=== PATIENT | female | born 1980 | race Caucasian/White ===

== ENCOUNTER 2020-05-01 17:12 | Outpatient (CLI) | payer OTHER, SELFPAY ==
--- NOTE | ~2020-05-01 | XR_ITS ---
EXAMINATION: XR sacrum coccyx min 2V INDICATION: Sacrococcygeal disorders, impacted incident, tailbone pain TECHNIQUE: Two views of the sacrum and coccyx are obtained on four radiographs. COMPARISON: 12/24/2016 FINDINGS: There are changes of anterior and posterior fusion procedures at L5-S1. No fracture is iden tified. The soft tissues are unremarkable. IMPRESSION: 1. No acute osseous abnormality. Reviewed, dictated and finalized at location A.
== END 2020-05-01 17:13 | disposition home or self-care (01) ==
PROVIDERS: PCP Family Medicine; Visit Provider Family Medicine
DX: M53.3 Sacrococcygeal disorders, not elsewhere classified (principal)
CPT/HCPCS: 72220

== ENCOUNTER 2020-10-09 15:23 | Outpatient (CLI) | payer OTHER, SELFPAY ==
--- NOTE | ~2020-10-09 | MR_ITS ---
EXAMINATION: MR knee LT wo con DATE: 10/09/2020 16:06 INDICATION: Left knee pain TECHNIQUE: Magnetic resonance imaging (MRI) of the left knee was performed without intravenous contra st. Sequences included coronal PD-weighted FSE, coronal PD-weighted FS FSE, sagittal T2-weighted FSE , sagittal PD-weighted FS FSE and axial PD weighted fat saturated FSE. COMPARISON: Left knee radiographs dated 11/25/2019 FINDINGS: Medial compartment: There is extrusion of the medial meniscal body with complex tear of the posterior horn. Partial-thick ness cartilage loss and ulceration throughout the lateral tibial plateau with marginal osteophytes an d mild subarticular edema along the posterior rim and at the anterior to central weightbearing medial femoral condyle in places appearing for near full-thickness with tiny central osteophyte at the junc tion of the anterior to central weightbearing medial femoral condyle. Additional moderate size margin al osteophytes about the weightbearing medial femoral condyle. Lateral compartment: Longitudinal horizontal tear of the lateral meniscus which extends to the inferior articular surface of the body and posterior horn and crossing the free edge to involve the cephalad articular surface a t the anterior horn. Partial-thickness cartilage loss and pulsed/near full-thickness fissuring at the lateral tibial plateau and throughout the weightbearing lateral femoral condyle. 8 x 8 mm flat 1 mm thick central osteophyte at the junction of the anterior to central weightbearing lateral femoral con dyle. Larger 28 x 6 mm by 2-3 mm thick central osteophyte at the posterior weightbearing lateral femo ral condyle. Moderate-sized marginal osteophytes along the weightbearing lateral femoral condyle. Patellofemoral compartment: Deep chondral fissuring without degenerative subchondral changes at the patellar apical ridge and lat eral facet. Moderate-sized marginal ossified along the medial facet. Chondral ulceration in places ap pearing full/near full-thickness at the lateral trochlea with tiny focus of subarticular edema. A sev ere partial thickness cartilage loss with deep fissuring at the trochlear groove and medial trochlea. Moderate-sized marginal osteophytes along the cephalad aspect of the lateral trochlea and medial shantel e of the medial trochlea. Ligaments and tendons: Anterior cruciate ligament appears thickened with increased intrasubstance signal and following a sha llower course than Blumensaat line consistent with ligament tear. The posterior cruciate ligament is normal. The medial collateral ligament and fibular collateral ligament complex are normal. Mild dista l quadriceps tendinopathy without discrete tear. Patellar tendon is normal. The visualized medial and lateral hamstring tendons as well as the iliotibial band are normal. Fluid: Physiologic amount of fluid in the joint space. No loose osteochondral bodies identified. 18 x 11 x 9 mm multiloculated para labral cyst along the periphery of the anterior horn of the lateral meniscus. Small Baez's cyst. Osseous/other: No fracture or abnormal marrow replacing process. IMPRESSION: 1. Medial and lateral meniscal tears. 2. Moderate osteoarthritis with extensive moderate and high-grade chondromalacia throughout all 3 com partments. 3. Anterior cruciate ligament tear. Reviewed, dictated and finalized at location A. IFIED TECHNICIAN SPECIALIST IMPRESSION: 1. Medial and lateral meniscal tears. 2. Moderate osteoarthritis with extensive moderate and high-grade chondromalaci a throughout all 3 compartments. 3. Anterior cruciate ligament tear.
== END 2020-10-09 15:24 | disposition home or self-care (01) ==
LOC: ANHIMG 15:28
PROVIDERS: PCP Family Medicine; Visit Provider Orthopaedic Surgery
DX: S83.242A Other tear of medial meniscus, current injury, left knee, initial encounter (principal); S83.282A Other tear of lateral meniscus, current injury, left knee, initial encounter; S83.512A Sprain of anterior cruciate ligament of left knee, initial encounter; M17.12 Unilateral primary osteoarthritis, left knee
CPT/HCPCS: 73721

== ENCOUNTER 2021-10-19 10:02 | Outpatient (CLI) | payer OTHER, SELFPAY ==
--- NOTE | 2021-10-19 11:00 | NEURO_ITS ---
Impression: # Complains of numbness of hands. # No Carpal Tunnel Syndrome. # Left ulnar neuropathy across the elbow. # Normal needle/EMG exam. Nerve Conduction Studies Anti Sensory Summary Table Stim Site NR Peak (ms) P-T Amp (?V) Site1 Site2 Delta-P (ms) Dist (cm) Sheldon (m/s) Left Median Anti Sensory (2-3nd Digit) Wrist 3.1 64.2 Wrist 2-3nd Digit 3.1 14.0 45 Wrist 3.1 72.6 Wrist 2-3nd Digit 3.1 14.0 45 Right Median Anti Sensory (2-3nd Digit) Wrist 3.2 58.2 Wrist 2-3nd Digit 3.2 14.0 44 Wrist 3.2 20.6 Wrist 2-3nd Digit 3.2 14.0 44 Left Radial Anti Sensory (Base 1st Digit) Wrist 2.2 26.4 Wrist Base 1st Digit 2.2 0.0 Right Radial Anti Sensory (Base 1st Digit) Wrist 2.5 30.5 Wrist Base 1st Digit 2.5 0.0 Left Ulnar Anti Sensory (5th Digit) Wrist 3.6 18.1 Wrist 5th Digit 3.6 14.0 39 Right Ulnar Anti Sensory (5th Digit) Wrist 2.7 51.8 Wrist 5th Digit 2.7 14.0 52 Motor Summary Table Stim Site NR Onset (ms) O-P Amp (mV) Site1 Site2 Delta-0 (ms) Dist (cm) Sheldon (m/s) Left Median Motor (Abd Poll Brev) Wrist 3.3 7.5 Elbow Wrist 5.1 32.0 63 Elbow 8.4 6.9 Right Median Motor (Abd Poll Brev) Wrist 3.4 2.6 Elbow Wrist 5.3 31.0 58 Elbow 8.7 2.2 Left Ulnar Motor (Abd Dig Minimi) Wrist 3.0 7.5 A Elbow Wrist 6.1 31.0 51 A Elbow 9.1 5.9 B Elbow Wrist 4.5 26.0 58 B Elbow 7.5 6.2 Right Ulnar Motor (Abd Dig Minimi) Wrist 2.5 9.1 A Elbow Wrist 5.3 31.0 58 A Elbow 7.8 7.4 F Wave Studies NR F-Lat (ms) L-R F-Lat (ms) Left Median (Mrkrs) (Abd Poll Brev) 28.52 0.39 Right Median (Mrkrs) (Abd Poll Brev) 28.91 0.39 Left Ulnar (Mrkrs) (Abd Dig Min) 30.00 1.17 Right Ulnar (Mrkrs) (Abd Dig Min) 28.83 1.17 EMG Side Muscle Nerve Root Ins Act Fibs Amp Dur Recrt Comment Right 1stDorInt Ulnar C8-T1 Nml Nml Nml Nml Nml Right Ext Indicis Radial (Post Int) C7-8 Nml Nml Nml Nml Nml Right Ext Digitorum Radial (Post Int) C7-8 Nml Nml Nml Nml Nml Right BrachioRad Radial C5-6 Nml Nml Nml Nml Nml Right PronatorTeres Median C6-7 Nml Nml Nml Nml Nml Right Abd Poll Brev Median C8-T1 Nml Nml Nml Nml Nml Left 1stDorInt Ulnar C8-T1 Nml Nml Nml Nml Nml Left Ext Indicis Radial (Post Int) C7-8 Nml Nml Nml Nml Nml Left Ext Digitorum Radial (Post Int) C7-8 Nml Nml Nml Nml Nml Left BrachioRad Radial C5-6 Nml Nml Nml Nml Nml Left PronatorTeres Median C6-7 Nml Nml Nml Nml Nml Left Abd Poll Brev Median C8-T1 Nml Nml Nml Nml Nml MTDD
== END 2021-10-19 10:03 | disposition home or self-care (01) ==
LOC: ANHNEURO 10:05
PROVIDERS: PCP Family Medicine; Visit Provider Orthopaedic Surgery Hand Surgery
DX: G56.22 Lesion of ulnar nerve, left upper limb (principal)
CPT/HCPCS: 95886; 95911

== ENCOUNTER 2022-01-10 15:13 | Outpatient (CLI) | payer OTHER, SELFPAY ==
--- NOTE | ~2022-01-10 | US_ITS ---
EXAMINATION: US venous doppler [facility] DATE: 01/10/2022 16:13 INDICATION: Left ankle swelling TECHNIQUE: Keith scale images without and with compression and Doppler images of the left lower extrem ity veins were obtained. COMPARISON: 09/13/2015 FINDINGS: The left common femoral vein, profunda femoral vein, femoral vein, popliteal vein, peroneal trunk, posterior tibial veins, and greater saphenous vein are patent. IMPRESSION: 1. Patent left lower extremity veins. No evidence of deep venous thrombosis. Reviewed, dictated and finalized at location B. CALL PHARMACY TECHNICIAN
--- NOTE | ~2022-01-10 | US_ITS ---
EXAMINATION: US pelvic complete w TV DATE: 01/10/2022 16:13 INDICATION: Amenorrhea TECHNIQUE: Multiple transabdominal and endovaginal sonographic images of the pelvis were obtained. COMPARISON: None. FINDINGS: The uterus measures 7.6 x 4.3 x 3.2 cm. The endometrial complex measures 5 mm. The right ov mona measures 1.8 x 1.7 x 1.4 cm. The left ovary measures 2.7 x 1.9 x 2.0 cm. Nabothian cysts are note d in the cervix. There is normal vascular flow in the ovaries. There is no free fluid in the pelvis. IMPRESSION: 1. No sonographic correlate for the patient's symptoms. Reviewed, dictated and finalized at location B. ED BOX [facility]WER
== END 2022-01-10 15:14 | disposition home or self-care (01) ==
LOC: ANHIMG 15:18
PROVIDERS: PCP Family Medicine; Visit Provider Family Medicine
DX: N91.2 Amenorrhea, unspecified (principal); M79.605 Pain in left leg
CPT/HCPCS: 76830; 76856; 93971

== ENCOUNTER 2022-02-17 17:17 | Outpatient (CLI) | payer OTHER, SELFPAY ==
--- NOTE | ~2022-02-17 | MR_ITS ---
EXAMINATION: MR lumbar spine wo con DATE: 02/17/2022 18:07 INDICATION: Other spondylosis, lumbar region. TECHNIQUE: Magnetic resonance imaging (MRI) of the lumbar spine was performed without intravenous con trast. Sequences included sagittal T2-weighted FSE, sagittal T2-weighted FS FSE, sagittal STIR FSE, s agittal T1-weighted FSE, and axial T2-weighted FSE. COMPARISON: Lumbar spine MRI 05/30/2015 FINDINGS: There is 4 degrees dextrocurvature of thoracolumbar spine. There is 5 mm anterolisthesis of L5 on S1. There are changes of posterior fusion procedure at L5-S1 with pedicle screws. There are ch anges of anterior fusion procedure at L5-S1. There is mildly decreased disc height at L4-L5. There is mild central canal stenosis at L5-S1 with posterior decompression. IMPRESSION: 1. Motion artifact severely decreases sensitivity. 2. Anterior and posterior fusion procedures at L5-S1. 3. Mild lumbar spondylosis. Reviewed, dictated and finalized at location A.
--- NOTE | ~2022-02-17 | XR_ITS ---
XR lumbar spine 2-3V DATE: 02/17/2022 18:17 INDICATION: Back pain. Status post spinal fusion in 2009. Spondylosis. TECHNIQUE: AP, lateral, coned lateral lumbosacral views COMPARISON: December 24, 2016 lumbar spine FINDINGS: Status post posterior and interbody spinal fusion at L5-S1. Stable anterolisthesis at L5-S1 since December 24, 2016. No fracture or bone destruction is evident. The lumbar pedicles are intact. Mild loss of interspace height, mild degenerative spurring at L1-2. Moderate loss of L4-5 interspace height. The sacroiliac joints are intact. IMPRESSION: Status post posterior and interbody surgical fusion at L5-S1 Prominent loss of interspace height at L4-5 since December 24, 2016 Mild degenerative disc disease at L1 to Reviewed, dictated and finalized at location A.
== END 2022-02-17 17:18 | disposition home or self-care (01) ==
LOC: ANHIMG 17:18
PROVIDERS: PCP Family Medicine; Visit Provider Family Medicine
DX: M47.896 Other spondylosis, lumbar region (principal); Z98.1 Arthrodesis status; M51.36 Other intervertebral disc degeneration, lumbar region
CPT/HCPCS: 72100; 72148

== ENCOUNTER 2022-06-01 11:26 | Outpatient (CLI) | payer OTHER, SELFPAY ==
[2022-06-01 11:44] LABS: Basophils Absolute Auto 0.1 K/mm3 (0.0-0.1); Basophils Percent Auto 0.8 % (0.2-1.2); Eosinophils Absolute Auto 0.6 K/mm3 (0-0.3); Eosinophils Percent Auto 6.9 % (0-4.4); Hematocrit 34.8 % (37.0-47.0); Hemoglobin 9.4 g/dL (12.0-15.0); Immature Granulocyte Absolute 0.02 K/mm3 (0.00-0.031); Immature Granulocyte Percent A 0.2 % (0-0.5); Lymphocytes Absolute Auto 2.38 K/mm3 (0.9-3.2); Lymphocytes Percent Auto 27.8 % (18.3-44.2); Mean Corpuscular Volume 66.7 fl (80-100); Mean Platelet Volume 8.9 fl (7.4-10.4); Monocytes Absolute Auto 0.9 K/mm3 (0.1-0.6); Monocytes Percent Auto 10.3 % (2.6-8.5); Neutrophils Absolute Auto 4.6 K/mm3 (1.3-6.7); Platelet Count Result 628 k/mm3 (150-375); Red Blood Count 5.22 M/mm3 (4.2-5.4); Red Cell Distribution Width 21.2 % (11.5-14.5); White Blood Count 8.6 K/mm3 (4.5-10.0)
[2022-06-01 11:51] LABS: Anisocytosis 1+ (NORMAL); Hypochromasia 1+ (NORMAL); Ovalocytes 1+ (NORMAL); Platelet Estimate Increased (Adequate); Poikilocytosis 1+ (NORMAL)
[2022-06-01 12:19] LABS: Alanine Aminotransferase 21 U/L (6-35); Alkaline Phosphatase 91 U/L (38-126); Anion Gap 11 mmol/L (8-16); Aspartate Amino Transferase 19 U/L (14-36); Bilirubin,Total 0.3 mg/dL (0.2-1.3); Blood Urea Nitrogen 15 mg/dL (7-17); Carbon Dioxide 26 mmol/L (22-30); Chloride 103 mmol/L (98-107); Estimated Glomerular Filt Rate > 60; Glucose 107 mg/dL (65-110); Potassium 3.6 mmol/L (3.4-5.0); Sodium 140 mmol/L (137-145)
[2022-06-01 13:26] LABS: Folic Acid 11.4 ng/mL (2.76->20)
[2022-06-01 15:03] LABS: Iron 21 ug/dL (37-170)
[2022-06-01 15:13] LABS: Percent Iron Saturation 5 % (20-50)
[2022-06-01 15:39] LABS: Ferritin 6.92 ng/mL (6.24-137)
== END 2022-06-01 11:27 | disposition home or self-care (01) ==
LOC: ANHLAB 11:27
PROVIDERS: PCP Family Medicine; Visit Provider Internal Medicine Hematology & Oncology
DX: D64.9 Anemia, unspecified (principal)
CPT/HCPCS: 36415; 80053; 82607; 82728; 82746; 83540; 83550; 85025

== ENCOUNTER 2022-06-29 00:54 | Day surgery (SDC) | payer OTHER, SELFPAY ==
--- NOTE | 2022-06-24 14:16 | PM.IMHP ---
H&P: HPI History of Present Illness Date/Time: 06/24/22 14:16 Chief Complaint: The patient is a 41-year-old female who presents with right knee pain, the pain is localized medially and laterally. Interferes with her daily activities quite significant nature at times. She has pain with twisting or turning squatting kneeling going up and down stairs. . This has been present for several months now. The patient despite conservative measures has symptoms of continue with mechanical symptoms aching pain and swelling in the knee. An MRI scan was performed that shows tears of the medial and lateral menisci. There are tricompartmental degenerative changes with marginal osteophytes and moderate to large knee joint effusion and popliteal fossa cyst. Motion artifact limits the evaluation of the MRI scan. Stabilizing ligaments of the knee are intact. At this point the patient is where the above findings she knows she has pre-existing osteoarthritis and may not get full relief of her knee pain from knee arthroscopy however she would like to proceed. Review of Systems Review of Systems: Ten point review of systems otherwise unremarkable. Meds Home Medications and Allergies Allergies Allergy/AdvReac Type Severity Reaction Status Date / Time No Known Allergies Allergy Verified 06/24/22 14:00 Exam Narrative: On exam the patient is noted to be well-developed well-nourished female in no acute distress alert oriented x3. Normal mood and affect. the patient is 5 ft 11 in tall 250 lb the BMI of 34.9. Hearing and vision intact. Respiratory is good no distress. Pulse regular rate rhythm. Abdomen benign. Extremities showed the patient's right knee to be painful with manipulation range of motion. She has tenderness on medial and lateral joint lines pain with extremes of motion with subpatellar crepitation positive Rudolph exam negative Tab knee joint is otherwise stable strength is 5 5. moderate knee joint effusion is noted. Hips move well with negative Stinchfield negative Ciara. Neurovascularly she is intact skin is intact central nervous system within normal limits. Assessment and Plan Assessment and plan (1) Tear of medial meniscus of right knee, current: Code(s): S83.241A - Other tear of medial meniscus, current injury, right knee, initial encounter Status: Acute (2) Tear of lateral meniscus of right knee: Code(s): S83.281A - Other tear of lateral meniscus, current injury, right knee, initial encounter Status: Acute Plan The patient has right knee pain due to medial and lateral meniscal tears of the right knee. The patient has discussed risks benefits limitations and alternatives to surgery in great detail Dr. Yip the patient is now ready to proceed with a right knee arthroscopy partial medial and partial lateral meniscectomies proceed as indicated. Ms. Benton is scheduled to go surgery 06/29/2022 at [facility] with Dr. Yip. The patient voiced understanding and agrees with the above plan.
[2022-06-28 11:48] VITALS: BMI 34.8
--- NOTE | 2022-06-28 11:54 | WPDANESEPPF ---
Anes - Initial Pre Proc Eval Procedure: Operation Date: 06/29/22 07:30 Proposed Procedures p Right Knee Arthroscopy, Partial Medial and Lateral Meniscectomy, Proceed as Indicated - Geovani Yip MD Date/Time: 06/28/22 11:54 Surgeon: Geovani Yip MD Pre Op Diagnosis: Medial & Lateral Meniscus Tear Rt Knee Patient Data Age: 41 Gender: F Height: Weight: Allergies Allergy/AdvReac Type Severity Reaction Status Date / Time No Known Allergies Allergy Verified 06/29/22 06:31 Home Medications Medication Instructions Recorded Confirmed Type albuterol sulfate 90 mcg/actuation 90 mcg inhalation Q4H PRN Cough 06/24/22 06/29/22 History aerosol inhaler celecoxib 200 mg capsule 200 mg PO DAILY 06/24/22 06/29/22 History duloxetine 60 mg capsule,delayed 60 mg PO BID 06/24/22 06/29/22 History release ergocalciferol (vitamin D2) 1,250 50,000 unit PO DAILY 06/24/22 06/29/22 History mcg (50,000 unit) capsule ferrous sulfate 325 mg (65 mg 65 mg PO DAILY 06/24/22 06/29/22 History iron) tablet (FeroSul) fluoxetine 40 mg capsule 40 mg PO DAILY 06/24/22 06/29/22 History fluticasone propionate 50 2 spray intranasal DAILY PRN 06/24/22 06/29/22 History mcg/actuation nasal Allergic Symptoms spray,suspension gabapentin 300 mg capsule 300 mg PO BID 06/24/22 06/29/22 History meloxicam 15 mg tablet 15 mg PO DAILY 06/24/22 06/29/22 History omeprazole 40 mg capsule,delayed 40 mg PO DAILY 06/24/22 06/29/22 History release spironolactone 100 mg tablet 100 mg PO BID 06/24/22 06/29/22 History tizanidine 4 mg tablet 4 mg PO Q8-10H PRN Muscle Spasm 06/24/22 06/29/22 History trazodone 50 mg tablet 50 mg PO QHS PRN Insomnia 06/24/22 06/29/22 History Patient hx anesthesia problems: none Family hx anesthesia problems: none Results Review: All pre-operative results and documents have been reviewed as part of the pre-operative evaluation. [facility] Past Medical History Medical History (Updated 06/29/22 @ 07:01 by Babatunde Washington MD) Anxiety Depression Osteoarthritis Tear of lateral meniscus of right knee Social History Social History Smoking packs per day: 0.5 Smoking cigarettes per day: 10.0 Years smoked: 25 Smoking pack-years: 12.50 Smoking status: Former smoker Tobacco type: cigarettes Smoking end date: 11/06/12 Alcohol intake: never Substance use: current Substance use type: marijuana Living arrangements: with family Spiritual care concerns: No Anes - Eval Final PreProcedure Day of Procedure 06/28/22 11:54 Patient weight: obese Heart: regular rate and rhythm Lungs: clear to auscultation and normal air movement Airway: Mallampati scale class II Neurological: alert and oriented Last oral intake: >/= 8 hours ASA classification: II Emergent: no Anesthetic plan: proceed Anesthesia type and monitoring: general LMA Results Review: All pre-operative results and documents have been reviewed as part of the pre-operative evaluation. Informed Consent: The patient's anesthetic plan and its attendant risks and benefits were discussed with the patient/family/POA. Questions were solicited and answers provided to the satisfaction of the patient/family/POA.
--- NOTE | 2022-06-28 12:01 | PC.NURSE ---
Report to the Outpatient Waiting Room, entrance under the green pavilion located off [facility], at time 0600 on date 06/29/22. OR Time: 0730. - You and your visitor will be asked to self-screen and do not enter if you have any COVID symptoms. - Only one visitor and NO children visitors are allowed at this time. - The patient visitor is requested to leave or wait in car when not with patient due to restrictions. - A mask is required within the hospital. Patients may have clear liquids (water, carbonated beverages, clear teas, apple juice) until 3 hours prior to surgery with a maximum of 20 ounces. - No food from midnight until time of surgery Take the following medications with a SIP of water the morning of surgery: INHALER (IF NEEDED), DULOXETINE, FLUOXETINE, GABAPENTIN Medications to discontinue per physician: VITAMINS/SUPPLEMENTS Date to take last dose: NO MORE UNTIL AFTER SURGERY STOP CELECOXIB/MELOXICAM PER DR. JACOBSON Please no make-up, nail sinhala, hairspray, perfume, deodorant, or body powder the day of surgery. No jewelry (including any body piercings) or valuables the day of surgery, leave them at home. Please take a shower or bath the night before, or the morning of, surgery with an antibacterial soap. Wear comfortable, loose fitting clothing. - Jewelry must be removed prior to entering the operating room. Rings and piercings that are not removed may be cut off. - The hospital will not accept responsibility for valuables. - Please leave all valuables, including medications, at home the day of surgery. If you are going home after surgery, a licensed crew car driver must drive you home. - NO public transportation without another adult. - We recommend that an adult stay with you for 24 hours following discharge. - We also recommend that you do not drive, make important decision, drink alcoholic beverages, or take any drugs that were not prescribed by your health care provider for at least 24 hours after your discharge time. Follow any additional instructions given to you from your surgeon. If you or anyone in your household have experienced Covid symptoms in the past week, please notify your surgeon or the nurse liaison at the phone number below for possible testing. Telephone instructions given to PT - RAMBO COLEMAN and asked if any additional questions and then verbalized understanding. Patient advised to call surgeon office or pre surgery nurse liaison [phone] if any additional questions.
[2022-06-29] VITALS (11 sets, daily range): BP systolic 118–166; BP diastolic 72–98; PULSE 88–99; RESP 13–20; TEMP 35.9–36.8; O2SAT 95–99
[2022-06-29] MEDS: ACETAMINOPHEN 500 MG TABLET 1000 MG PO (06:33)
[2022-06-29] MEDS: LACTATED RINGERS 1,000 ML 30 ML IV CONT ×2 (07:01→08:43)
[2022-06-29] MEDS: KETOROLAC 15 MG/ML VIAL (*BKC) IV PUSH (07:01)
--- NOTE | 2022-06-29 07:10 | WPDHPUPDATE1 ---
History and Physical Update Update Date/Time: 06/29/22 07:11 History and Physical has been reviewed, including an updated exam of the patient. There are NO changes in the patient's condition. Risks, benefits, and alternatives have been discussed and questions answered. Patient agrees to proceed with procedure.
[2022-06-29] MEDS: ceFAZolin 2 GM/D5W 50 ML 2 GM/50 ML BAG IVPB (07:25)
[2022-06-29] MEDS: LIDO 1%/EPINEPHRINE 1:100,000 50 ML VIAL 20 ML INFILTRATE (07:49)
--- NOTE | 2022-06-29 08:10 | W.PM.PROC2 ---
Procedure Note - Detailed Date of Procedure 06/29/22 Pre-op Diagnosis Medial & Lateral Meniscus Tear Rt Knee Post-op Diagnosis Same Procedure Performed [Left] knee arthroscopy with partial meniscetomy Surgeon Geovani Yip MD Anesthesia General Description of Procedure Patient brought to the operating room and anesthetic was administered. The knee was steriley prepped and drapped in the usual manner. Standard portals were used. Superior medial portal was used for the outflow cannula, inferior lateral portal was used for the scope, inferior medial portal was used for the instruments. Arthroscopy was performed, the patellar femoral joint degenerative changes. The medial compartment showed a small tear. The lateral compartment showed s complex tear of the posterior half of the meniscus. The ACL was intact. Using baskets and thaddeus the meniscal tear was trimmed back to a stable base so the nothing further could be pulled into the joint. Any loose or delaminated fragments were gently trimmed to a stable base. At this point the instruments were withdrawn, sutures placed and patient left the operating room in satisfactory condition. The medial meniscus was minimally debrided. Estimated Blood Loss 20 Drains No Packing No Pathology None sent Complications No immediate complications Condition Stable Disposition PACU
[2022-06-29] MEDS: fentaNYL CITRATE INJ (*CRX) 100 MCG/2 ML VIAL 25 MCG IV PUSH ×2 (08:59→09:15)
[2022-06-29] MEDS: oxyCODONE HCL (*CRX) 5 MG TAB IR PO (09:46)
== END 2022-06-29 10:36 | disposition home or self-care (01) ==
PROVIDERS: PCP Family Medicine; Visit Provider Orthopaedic Surgery
PROC: (CPT 29870; principal; 2022-06-29 07:30)
DX: S83.241A Other tear of medial meniscus, current injury, right knee, initial encounter (principal); S83.281A Other tear of lateral meniscus, current injury, right knee, initial encounter; M25.561 Pain in right knee
CPT/HCPCS: 29880; A9270; J0690; J1100; J1170; J1885; J2250; J2370; J2405; J2704; J3010; J7120

== ENCOUNTER 2022-08-09 09:29 | Outpatient (CLI) | payer OTHER, SELFPAY ==
--- NOTE | ~2022-08-09 | XR_ITS ---
EXAM: XR lumbar spine 2-3V DATE: 08/09/2022 09:55 HISTORY: OTHER SPONDYIOSIS NON INJ PAIN . COMPARISON: 02/17/2022. FINDINGS: Uncomplicated appearing posterior fusion at L5-S1. Interbody device in good position. 5 non rib-bearing lumbar-type vertebral bodies. Pedicles intact. 12 mm anterolisthesis at L5-S1. Vertebral body heights preserved. Disc spaces maintained. L4-5 facet sclerosis and hypertrophy. Likely lower rosanna mbar facet arthropathy and bone graft material. Nondisplaced transverse fracture of the right L1 lugo sverse process. IMPRESSION: Acute appearing right L1 transverse process fracture, correlate with history of trauma. G rade 2 anterolisthesis at L5-S1, stable. Posterior fusion at L5-S1, no hardware related complication. Reviewed, dictated and finalized at location K. IMPRESSION: Acute appearing right L1 transverse process fracture, correlate wit h history of trauma. Grade 2 anterolisthesis at L5-S1, stable. Posterior fusion at L5-S1, no hardware related complication.
--- NOTE | ~2022-08-09 | CT_ITS ---
EXAMINATION: CT lumbar spine wo con DATE: 08/09/2022 09:49 INDICATION: Other lumbar spondylosis. Low back pain radiating down both legs. TECHNIQUE: Computed tomography (CT) of the lumbar spine was performed without intravenous contrast. A utomated exposure control and iterative reconstruction technique were employed. The dose-length produ ct was 1317.58 mGy-cm. COMPARISON: CT lumbar spine 07/07/2012 FINDINGS: There is 4 degrees levocurvature of lumbar spine. There is 7 mm anterolisthesis of L5 on S1 . There are changes of anterior and posterior fusion procedures at L5-S1 with interbody devices, heal ed interbody bone graft, and pedicle screws. Vertebral body heights are normal. Intervertebral disc h eights are normal. There is a laminectomy at L5. The following disc levels are specifically discussed : L1-L2: The disc does not extend beyond the endplate margin. There is moderate right and mild left fac et joint osteoarthritis. There is no neural foraminal stenosis. There is no central canal stenosis. L2-L3: The disc does not extend beyond the endplate margin. There is mild bilateral facet joint osteo arthritis. There is no neural foraminal stenosis. There is no central canal stenosis. L3-L4: The disc is mildly bulging. There is severe right and mild left facet joint osteoarthritis. Th ere is mild bilateral neural foraminal stenosis. There is no central canal stenosis. L4-L5: The disc is bulging. There is mild bilateral facet joint hypertrophy. There is mild bilateral neural foraminal stenosis. There is mild central canal stenosis. L5-S1: There is mild bilateral facet joint hypertrophy. There is mild bilateral neural foraminal sten osis. There is no central canal stenosis. IMPRESSION: 1. Anterior and posterior fusion procedures at L5-S1. 2. Mild lumbar spondylosis. Reviewed, dictated and finalized at location B.
== END 2022-08-09 09:30 | disposition home or self-care (01) ==
PROVIDERS: PCP Family Medicine; Visit Provider Family Medicine
DX: M47.896 Other spondylosis, lumbar region (principal); Z98.1 Arthrodesis status
CPT/HCPCS: 72100; 72131

== ENCOUNTER 2023-06-26 07:53 | Outpatient (CLI) | payer OTHER, SELFPAY ==
--- NOTE | ~2023-06-26 | CT_ITS ---
EXAMINATION: CT abdomen pelvis w con INDICATION: Inguinal lymphadenopathy TECHNIQUE: Computed tomographic images of the abdomen and pelvis were obtained after the administrati on of 100 cc of Omnipaque 350 intravenous contrast. The dose-length product (DLP) was 1378.66 mGy-cm. Automated exposure control and iterative reconstruction technique were employed. COMPARISON: None available FINDINGS: The heart size is normal. Debris is seen in a few right lower lobe bronchi. The liver, sple en, pancreas, and adrenal glands are normal. There are stones in the nondistended gallbladder. The ki dneys are unremarkable. Left inguinal and right retroperitoneal lymph nodes are upper limits of lisa l in size. No free intraperitoneal gas or evidence of bowel obstruction. The appendix is normal. Ther e are changes of anterior and posterior fusion at L5-S1. IMPRESSION: 1. Left inguinal and right retroperitoneal lymph nodes are upper limits of normal in size. Reviewed, dictated and finalized at location A. IMPRESSION: 1. Left inguinal and right retroperitoneal lymph nodes are upper limits of norm al in size.
== END 2023-06-26 07:54 | disposition home or self-care (01) ==
PROVIDERS: PCP Family Medicine; Visit Provider Family Medicine
DX: R59.0 Localized enlarged lymph nodes (principal)
CPT/HCPCS: 74177; Q9967

== ENCOUNTER 2023-08-02 10:50 | Outpatient (CLI) | payer OTHER, SELFPAY ==
--- NOTE | ~2023-08-02 | XR_ITS ---
EXAMINATION: XR hand LT min 3V, XR wrist LT min 3V DATE: 08/02/2023 11:15 INDICATION: Left hand and wrist pain TECHNIQUE: 1. Posteroanterior, ulnar deviation, oblique, and lateral views of the left wrist were obtained. 2. Dorsal palmar, oblique and lateral views of the left hand were obtained. COMPARISON: 11/25/2019 FINDINGS: Alignment of the left hand and wrist is normal. No fracture identified. No significant change in mil d polyarticular osteoarthritis at the left distal radioulnar, radioscaphoid, triscaphe, first carpome tacarpal, first-third metacarpophalangeal and each of the interphalangeal joints with distal predomin ance. No erosions to suggest inflammatory arthritis. No focal soft tissue swelling. IMPRESSION: 1. 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 Reviewed, dictated and finalized at location A. IMPRESSION: 1. 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
== END 2023-08-02 10:51 | disposition home or self-care (01) ==
LOC: ANHIMG 10:59
PROVIDERS: PCP Family Medicine; Visit Provider Family Medicine
DX: M19.042 Primary osteoarthritis, left hand (principal); M19.032 Primary osteoarthritis, left wrist
CPT/HCPCS: 73110; 73130

== ENCOUNTER 2024-04-04 16:51 | Outpatient (CLI) | payer OTHER, SELFPAY ==
--- NOTE | ~2024-04-04 | XR_ITS ---
EXAM: XR_CERV2-3V_CR DATE: 04/04/2024 17:13 HISTORY: NECK PAIN . COMPARISON: None available. FINDINGS: Craniocervical association and atlantoaxial joint are aligned. No prevertebral soft tissue swelling. Moderate degenerative change at the atlantodental interval. Reversed cervical lordosis jordan tered at C6-7. 2 mm anterolisthesis at C5-6. Mild vertebral body height loss at C5. Moderate vertebra l body height loss at C6. Mild disc space narrowing and moderate marginal osteophytosis at C5-6 and C 6/7. Multilevel facet sclerosis and hypertrophy IMPRESSION: Minimal grade 1 anterolisthesis at C5-6. Mild vertebral body height loss at C5, moderate pericardial body height loss at C6, changes are presu mably chronic and degenerative in nature unless accompanied by history of trauma and acute pain/tende rness. Moderate degenerative disc disease at C5-6 and C6-7. Moderate multilevel cervical facet arthropathy. Reviewed, dictated and finalized at location K. IMPRESSION: Minimal grade 1 anterolisthesis at C5-6. Mild vertebral body height loss at C5, moderate pericardial body height loss at C6, changes are presumably chronic and degenerative in nature unless accompani ed by history of trauma and acute pain/tenderness. Moderate degenerative disc disease at C5-6 and C6-7. Moderate multilevel cervical facet arthropathy.
--- NOTE | ~2024-04-04 | XR_ITS ---
EXAM: XR thoracic spine 2V DATE: 04/04/2024 17:13 HISTORY: THORACIC BACK PAIN . COMPARISON: None available. FINDINGS: Mild scoliosis. Vertebral body alignment intact. Vertebral body heights preserved. Mild mul tilevel disc space narrowing and marginal osteophytosis. Mild multilevel facet sclerosis. No traumati c malalignment or fracture. Visualized lung parenchyma is clear. IMPRESSION: Mild thoracic scoliosis. Mild multilevel degenerative disc disease and facet arthropathy. Reviewed, dictated and finalized at location K.
== END 2024-04-04 16:52 | disposition home or self-care (01) ==
LOC: ANHIMG 16:52
PROVIDERS: PCP Family Medicine; Visit Provider Family Medicine
DX: M41.84 Other forms of scoliosis, thoracic region (principal); M51.34 Other intervertebral disc degeneration, thoracic region; M43.12 Spondylolisthesis, cervical region; R29.890 Loss of height; M50.322 Other cervical disc degeneration at C5-C6 level; M12.88 Other specific arthropathies, not elsewhere classified, other specified site
CPT/HCPCS: 72040; 72070

== ENCOUNTER 2024-04-19 16:23 | Outpatient (CLI) | payer OTHER, SELFPAY ==
--- NOTE | ~2024-04-19 | US_ITS ---
EXAMINATION: US pelvic complete w TV DATE: 04/19/2024 17:11 INDICATION: Postmenopausal bleeding. TECHNIQUE: Multiple transabdominal and transvaginal sonographic images of the pelvis were obtained. COMPARISON: Ultrasound pelvis 01/10/2022 FINDINGS: TRANSABDOMINAL ULTRASOUND: The uterus measures 6.2 x 2.6 x 3.9 cm. There is no free fluid in the pelvis. TRANSVAGINAL ULTRASOUND: The endometrial complex measures 1 mm in thickness. The right ovary measures 3.5 x 1.6 x 1.5 cm. Ther e is a 15 mm cyst in right ovary, likely benign. The left ovary measures 2.2 x 1.3 x 1.4 cm. No pleur al effusion. IMPRESSION: 1. Normal endometrial complex. Reviewed, dictated and finalized at location E.
== END 2024-04-19 16:24 | disposition home or self-care (01) ==
LOC: ANHIMG 16:23
PROVIDERS: PCP Family Medicine; Visit Provider Family Medicine
DX: N95.0 Postmenopausal bleeding (principal)
CPT/HCPCS: 76830; 76856

== ENCOUNTER 2025-02-16 13:51 | Outpatient (CLI) | payer OTHER, SELFPAY ==
--- NOTE | ~2025-02-16 | MR_ITS ---
MRI of the left ankle Clinical history: Posterior tibial tendinitis Technique: Coronal proton-density and proton-density fat-sat images, axial proton-density and proton- density fat-sat images, and sagittal proton-density and proton-density fat-sat images were acquired. Findings: Syndesmotic ligaments are intact. Anterior and posterior talofibular ligaments, and calcane ofibular ligament are intact. Deltoid ligament is intact. Peroneal tendons, anterior extensor tendons, and Achilles tendon are intact. There is apparent high-g rade, probable complete tear of the distal tibialis posterior tendon. Flexor digitorum longus and fle xor hallucis longus tendons appear to be intact. There is no osteochondral lesion of the talar dome. There are mild degenerative changes of the cuboid distally. Remaining osseous structures appear intact. There are small tibiotalar and subtalar joint effusions. Visualized plantar fascia intact. There is probable ganglion cyst along the dorsal margin of the talonavicular articulation. Impression: Proximal complete tear of the distal tibialis posterior tendon. Correlate with physical exam. Probable ganglion cyst along the dorsal margin of the talonavicular articular relation. Reviewed, dictated and finalized at location . Impression: Proximal complete tear of the distal tibialis posterior tendon. Correlate with physical exam. Probable ganglion cyst along the dorsal margin of the talonavicular articular r elation.
--- OUTSIDE RECORDS SUMMARY | 2025-02-16 13:53 | XMS_ITS | Clinical Summary ---
Author Organization [facility] Address [address] [place] [address] Care Team Providers Care Senior Budget Analyst Name Role Phone Ashanti Chin MD Primary Care Provider [phone] Source Comments [facility],non-owned Affiliates and Associated Physician Practices is amultiple site organization consisting of ambulatory clinics and hospital sitesin [place], [place], [place] and [place]. This disclosure is being madepursuant to the Care Everywhere program and may not contain all information available regarding this patient. Last updated 18.[facility] Allergies No known active allergies Medications * Be aware that medications may not be up to date on this document. Alwaysverify current medications with the patient. albuterol HFA (PROVENTIL; VENTOLIN; PROAIR) 108 (90 Base) MCG/ACT inhaler albuterol sulfate HFA 90 mcg/actuation aerosol inhaler Active DULoxetine (CYMBALTA) 60 MG capsule duloxetine 60 mg capsule,delayed release Active ergocalciferol (DRISDOL) 1.25 MG (65201 UT) capsule ergocalciferol (vitamin D2) 1,250 mcg (50,000 unit) capsule Active ferrous sulfate 325 (65 FE) MG tablet FeroSul 325 mg (65 mg iron) tablet Active FLUoxetine (PROZAC) 40 MG capsule fluoxetine 40 mg capsule Active fluticasone propionate (FLONASE) 50 MCG/ACT nasal spray fluticasone propionate 50 mcg/actuation nasal spray,suspension Active gabapentin (NEURONTIN) 300 MG capsule gabapentin 300 mg capsule Active meloxicam (MOBIC) 15 MG tablet meloxicam 15 mg tablet TAKE 1 TABLET BY MOUTH DAILY NEEDED Active omeprazole (PRILOSEC) 40 MG capsule omeprazole 40 mg capsule,delayed release TAKE 1 CAPSULE BY MOUTH DAILY Active phentermine (ADIPEX-P) 37.5 MG capsule phentermine 37.5 mg capsule Take 1 capsule(s) EVERY DAY by oral route every a.m. Active spironolactone (ALDACTONE) 100 MG tablet spironolactone 100 mg tablet TAKE 2 TABLETS BY MOUTH EVERY DAY Active tiZANidine (ZANAFLEX) 4 MG tablet tizanidine 4 mg tablet Active topiramate (TOPAMAX) 100 MG tablet topiramate 100 mg tablet TAKE 1 TABLET BY MOUTH TWICE DAILY ALONG WITH THE 25MG DOSAGE Active topiramate (TOPAMAX) 25 MG tablet topiramate 25 mg tablet Active traZODone (DESYREL) 50 MG tablet trazodone 50 mg tablet Active Active Problems Problem Noted Date Diagnosed Date Primary fibromyalgia syndrome 01/17/2022 Bilateral primary osteoarthritis of knee 022 Spondylosis of lumbar region without myelopathy or radiculopathy 01/17/2022 DDD (degenerative disc disease), lumbar 01/18/20 22 DDD (degenerative disc disease), cervical 2021 Spondylosis of cervical pamela on without myelopathy or radiculopathy 01/17/2022 Social History Tobacco Use Types Packs/Day Years Used Date Smoking Tobacco: Never Smokeless Tobacco: Never Comments No Sex and Gender Information Value Date Recorded Sex Assigned at Not on file 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 Gender Identity Not on file Sexual Orientation Not on file Last Filed Vital Signs Vital Sign Reading Time Taken Comments Blood Pressure 150/90 01/17/2022 1:59 PM CDT Pulse 110 01/17/2022 1:59 PM CDT Temperature 36.7 C (98 F) 01/17/2022 1:59 PM CDT Respiratory Rate 16 01/17/2022 1:59 PM CDT Oxygen Saturation 96% 01/17/2022 1:59 PM CDT Inhaled Oxygen Concentration - - Weight 117.9 kg (260 lb) 01/17/2022 1:59 PM CDT Height 177.8 cm (5' 10 ) 01/17/2022 1:59 PM CDT Body Mass Index 37.31 01/17/2022 1:59 PM CDT Plan of Treatment Health Maintenance Due Date Last Done Comments COLOGUARD (AGES 45-75) - COL ON CA SCREENING 1978 COLON MONITORING 1978 COLONOSCOPY - COLON CA SCREENING 1978 CT COLONOGRAPHY - COLON CA SCREENING 1978 Colorectal Cancer Screening 1978 FIT - COLON CA SCREENING 1978 FLEX SIG - COLON CA SCREENING 1978 LIPID TESTING 1978 MAMMOGRAM 1978 PAP SMEAR 1978 HIV SCREENING 1993 HEPATITIS C SCREENING 07/04/1996 DTAP/TDAP/TD VACCINES (1 - Tdap) 1997 HEPATITIS B VACCINE (1 of 3 - 19+ 3-dose series) 1997 SCREENING FOR DIABETES 01/17/2022 COVID-19 VACCINE (1 - 2023-2 5 season) 2024 DEPRESSION SCREENING 11/06/2024 INFLUENZA VACCINE (Season Ended) 2025 07/30/2018, 09/20/2017, 10/20/2015 ZOSTER VACCINE (1 of 2) 2028 HIB VACCINE Aged Out No longer eligi ble based on patient's age to complete this topic HPV VACCINE Aged Out No longer eligi ble based on patient's age to complete this topic MENINGOCOCCAL (Group B) VACCINE SHARED DECISION-MAKING Aged Out No longer eligible based on patient's age to complete this topic MENINGOCOCCAL GROUPS A/C/Y/W VACCINE Aged Out No longer eligible b ased on patient's age to complete this topic PNEUMOCOCCAL VACCINE Aged Out No long er eligible based on patient's age to complete this topic [place] [address] [place] [address] Care Teams Senior Budget Analyst Relationship Specialty Start Date End Date Ashanti Chin MD [address] [place] [id number] PCP - General Family Medicine 01/17/22
--- OUTSIDE RECORDS SUMMARY | 2025-02-16 13:53 | XMS_ITS | Clinical Summary ---
Author Organization [facility] Address [address] [place] [address] Care Team Providers Care Commercial [employer] Professional Name Role Phone Ashanti Chin MD Primary Care Provider + Allergies No known active allergies Medications albuterol sulfate 90 mcg/Actuation inhaler 05/24/2022 Active bupivacaine 0.5 % (SENSORCAINE,MA RCAINE) 5 mg/mL (0.5%) Solution 40 mg. Acti ve celecoxib (CeleBREX) 200 mg capsule Take 200 mg by mouth daily. 04/21/2022 Active DULoxetine (CYMBALTA) 60 mg Capsule, Delayed Release(E.C.) Take 60 mg by mouth daily. 05/01/2022 Active ergocalciferol (VITAMIN D2) 50,000 unit capsule 05/24/2022 Active FeroSuL 325 mg (65 mg iron) tablet 05/24/2022 Active FLUoxetine (PROzac) 20 mg capsule TAKE 1 CAPSULE BY MOUTH EVERY DAY WITH FOOD 04/12/2022 Active fluticasone propionate (FLONASE) 50 mcg/spray [place], Suspension nasal inhaler 05/24/2022 Activ e gabapentin (NEURONTIN) 300 mg capsule Take 300 mg by mouth 2 times daily. 05/01/2022 Active meloxicam (MOBIC) 15 mg tablet TAKE 1 TABLET BY MOUTH DAILY NEEDED 03/17/2022 Active omeprazole (PriLOSEC) 40 mg Capsule, Delayed Release(E.C.) Take 40 mg by mouth daily. 04/13/2022 Active spironolactone (ALDACTONE) 100 mg tablet Take 200 mg by mouth daily. 03/08/2022 Active tiZANidine (ZANAFLEX) 4 mg Tablet TAKE 1 TABLET BY MOUTH THREE TIMES DAILY NEEDED FOR SPASM 04/12/2022 Active topiramate (TOPAMAX) 100 mg tablet 04/12/2022 Active traZODone (DESYREL) 50 mg tablet TAKE 1 TO 2 TABLETS BY MOUTH AT BEDTIME NEEDED FOR INSOMNIA 05/01/2022 Active Active Problems Problem Noted Date Diagnosed Date Iron deficiency anemia 06/01/2022 Family History Medical History Relation Name Comments Diabetes Brother 1 Heart Disease Brother 1 Diabetes Brother 2 Diabetes Father Heart Disease Father Diabetes Mother Heart Disease Mother Relation Name Status Comments Brother 1 Alive Brother 2 Alive Brother 3 Alive Father Mother Sister 1 Alive Sister 2 Alive Sister 3 Alive Social History Tobacco Use Types Packs/Day Years Used Date Smoking Tobacco: Never Alcohol Use Standard Drinks/Week Comments Never 0 (1 standard drink = 0.6 oz pur e alcohol) Comments Unknown Sex and Gender Information Value Date Recorded Sex Assigned at Not on file Legal Sex Female 10:19 AM CDT Gender Identity Not on file Sexual Orientation Not on file Last Filed Vital Signs Vital Sign Reading Time Taken Comments Blood Pressure 150/94 07/28/2022 11:59 AM CDT Pulse 102 07/28/2022 11:59 AM CDT Temperature 36.4 C (97.5 F) 07/28/2022 11:59 AM CDT Respiratory Rate - - Oxygen Saturation 97% 07/28/2022 11:59 AM CDT Inhaled Oxygen Concentration - - Weight 115 kg (253 lb 8 oz) 07/28/2022 11:59 AM CDT Height 180.3 cm (5' 11 ) 07/28/2022 11:59 AM CDT Body Mass Index 35.36 07/28/2022 11:59 AM CDT Plan of Treatment Health Maintenance Due Date Last Done Comments DTAP/TDAP/TD VACCINES (1 - Tdap) 1997 HEPATITIS B VACCINES (1 of 3 - 19+ 3-dose series) 1997 HPV/Cotest (21-29) 1999 CERVICAL CANCER SCREENING 2008 HPV/Cotest (30-65) 2008 PAP SMEAR 2008 BREAST CANCER SCREENING 2018 COLORECTAL SCREENING 2023 Colorectal Cancer Screening 2023 FIT-DNA Q 3 years 2023 FIT/FOBT Q 1 year 2023 Flex Sig/CT Colonography Q 5 years 2023 INFLUENZA VACCINE (#1) 2024 8, 09/20/2017, 10/20/2015 HPV VACCINES Aged Out No longer eligi ble based on patient's age to complete this topic Insurance Care Teams Commercial Parts Professional Relationship Specialty Start Date End Date Ashanti Chin MD [address] [place] [address] [place] [address] PCP - General Family Practice 06/01/22
--- OUTSIDE RECORDS SUMMARY | 2025-02-16 13:53 | XMS_ITS | Referral Summary ---
Author Organization [facility] Address [address] [place] [address] Care Team Providers Care Construction Project Assistant Name Role Phone Ashanti Chin MD Primary Care Provider + Encounters Date Type Department Care Team Description 12/12/2024 Orders Only [facility] Rheumatology [address] [place] [address] Office [address] [place] [id number] [facility] 11/20/2024 2:54 PM SEASONER - 11/20/2024 11:59 PM SEASONER Hospital Encounter [facility] Imaging [address] [facility] [place] [address] Polyarthralgia; Chronic bilateral back pain, unspecified back location Discharge Disposition: Discharge to home or self care 11/20/2024 2:45 PM SEASONER Lab [address] [address] Fibromyalgia; Polyarthralgia; Positive FAISAL (antinuclear antibody); Chronic bilateral back pain, unspecified back location 11/20/2024 1:00 PM SEASONER Office Visit [facility] Rheumatology [address] [place] [address] Office [address] [place] [id number] Delia Post NP Chronic bilateral back pain, unspecified back location (Primary Dx); Polyarthralgia; Positive FAISAL (antinuclear antibody); Fibromyalgia from Last 3 Months Allergies No known active allergies Medications albuterol HFA (PROVENTIL HFA,VENTOLIN HFA,PROAIR HFA) 90 mcg/actuation inhaler 01/11/2023 Active celecoxib (CeleBREX) 200 mg capsule 01/12/[address] (CYMBALTA) 60 mg capsule 01/08/2023 Active FeroSuL 325 mg (65 mg iron) tablet 01/08/2023 Active FLUoxetine (PROzac) 40 mg capsule 01/11/2023 Active fluticasone propionate (FLONASE) 50 mcg/actuation nasal spray 01/08/2023 Active meloxicam (MOBIC) 15 mg tablet Take 1 tablet (15 mg total) by mouth daily as needed 11/30/2022 Active omeprazole (PriLOSEC) 40 mg capsule 01/08/2023 Active spironolactone (ALDACTONE) 100 mg tablet 01/08/2023 Active tiZANidine (ZANAFLEX) 4 mg tablet 01/08/2023 Active traZODone (DESYREL) 50 mg tablet 01/08/2023 Active gabapentin (NEURONTIN) 300 mg capsuleIndicati ons:Left foot pain Take 1 capsule (300 mg total) by mouth 3 (three) times a day 90 capsule 11 01/17/2023 Active losartan-hydroc hlorothiazide (HYZAAR) 100-25 mg per tablet Take 1 tablet by mouth daily 10/25/2023 Active metFORMIN XR (GLUCOPHAGE XR) 500 mg 24 hr tablet Take 2 tablets (1,000 mg total) by mouth daily 12/19/2023 Active losartan (COZAAR) 100 mg tablet Take 1 tablet every day by oral route. Active oxyCODONE (ROXICODONE) 5 mg immediate release tabletIndicatio ns:Pain Take 1 tablet (5 mg total) by mouth every 4 (four) hours as needed Active Active Problems Problem Noted Date Diagnosed Date Complex regional pain syndro me type 1 of left lower extremity 01/17/2023 Right hip pain 01/17/2023 Other spondylosis, lumbar region 01/17/2023 Left foot pain 01/17/2023 Social History Tobacco Use Types Packs/Day Years Used Date Smoking Tobacco: Former Cigarettes Tobacco Cessation:Counseling Given: Not Answered AUDIT-C Answer Date Recorded Q1: How often do you have a drink containing alcohol? Never 11/20/2024 Q2: How many drinks containi ng alcohol do you have on a typical day when you are drinking? Patient does not drink Q3: How often do you have si x or more drinks on one occasion? Never 11/20/2024 Hunger Vital Sign Answer Date Recorded Within the past 12 months, y ou worried that your food would run out before you got the money to buy more. Never true 01/18/20 23 Within the past 12 months, t he food you bought just didn't last and you didn't have money to get more. Never true 01/17/2023 Comments Unknown Sex and Gender Information Value Date Recorded Sex Assigned at Not on file Legal Sex Female 3:07 AM SEASONER Gender Identity Not on file Sexual Orientation Not on file Last Filed Vital Signs Vital Sign Reading Time Taken Comments Blood Pressure 158/98 11/20/2024 1:05 PM SEASONER Pulse 113 11/20/2024 1:05 PM SEASONER Temperature 37.1 C (98.7 F) 11/20/2024 1:05 PM SEASONER Respiratory Rate 18 11/20/2024 1:05 PM SEASONER Oxygen Saturation 95% 11/20/2024 1:05 PM SEASONER Inhaled Oxygen Concentration - - Weight 122.9 kg (271 lb) 11/20/2024 1:05 PM SEASONER Height 180.3 cm (5' 10.98 ) 11/20/2024 1:[address] Body Mass Index 37.81 11/20/2024 1:05 PM SEASONER Plan of Treatment Not on file Goals Goal Patient Goal Type Associated Problems Recent Progress Patient-Stated? Author CCM Chronic Pain Care Plan Chronic Care Management Daniella South, RN Note: Problem: Chronic Pain Goals: 1. Minimize further functional decline 2. Maximize quality of life 3. Control pain Strategies: - Activity/exercise program recommendation - Conservative stepwise pain medicine strategy with multi-disciplinary approach - Recommend healthy lifestyle strategies and compensatory methods as needed Medical Devices Implanted Type Area Interactive Graphic Designer Device Identifier Shelf Expiration Date Model / Serial / Lot Rods And Screws Back Procedures Procedure Name Priority Date/Time Associated Diagnosis Comments XR FOOT LEFT 3 OR MORE VIEWS Routine 11/20/2024 3:23 PM SEASONER Polyarthralgia XR SACROILIAC JOINTS 3 OR MORE VIEWS Schedule Routine, Read Routine (OP Routine) 11/20/2024 3:23 PM SEASONER Chronic bilateral back pain, unspecified back location XR KNEE BILATERAL AP STANDING Routine 11/20/2024 3:23 PM SEASONER Polyarthralgia XR HAND LEFT 3 OR MORE VIEWS Routine 11/20/2024 3:23 PM SEASONER Polyarthralgia EGFR Routine 11/20/2024 2:50 PM SEASONER Polyarthralgia DIFFERENTIAL AUTO Routine 11/20/2024 2:5 0 PM SEASONER Polyarthralgia CYCLIC CITRUL PEPTIDE ANTIBODY, IGG Routine 11/20/2024 2:50 PM SEASONER Polyarthralgia ERYTHROCYTE SEDIMENTATION RATE Routine 11/20/2024 2:50 PM SEASONER Polyarthralgia CRP (ACUTE PHASE) Routine 11/20/2024 2:5 0 PM SEASONER Polyarthralgia THYROID PEROXIDASE ANTIBODY Routine 11/20/2024 2:50 PM SEASONER Positive FAISAL (antinuclear antibody) CBC WITH AUTO DIFFERENTIAL Routine 11/20/2024 2:50 PM SEASONER Polyarthralgia COMPREHENSIVE METABOLIC PANEL Routine 11/20/2024 2:50 PM SEASONER Polyarthralgia CREATINE KINASE (CK), TOTAL Routine 11/20/2024 2:50 PM SEASONER Fibromyalgia from Last 3 Months Results * XR Foot Left 3 or More Views (11/20/2024 3:23 PM SEASONER) Anatomical Region Laterality Modality Lower Extremities, Foot Left Computed Radiography 11/20/2024 3:54 PM SEASONER Impressions 11/20/2024 3:54 PM SEASONER 1. No radiographic evidence of inflammatory arthritis involving the left hand, left foot, bilateral knees, or bilateral sacroiliac joints. 2. Mild bilateral sacroiliac osteoarthritis. 3. Severe lateral compartment predominant tricompartmental left knee osteoarthritis with multiple loose intra-articular bodies. 4. Moderate lateral compartment predominant tricompartmental right knee osteoarthritis. 5. Moderate to severe left 1st carpometacarpal osteoarthritis. Electronically signed by: Nino Corral MD Narrative 11/20/2024 3:54 PM SEASONER EXAMINATION: XR HAND LEFT 3 OR MORE VIEWS, XR KNEE BILATERAL AP STANDING, XR SACROILIAC JOINTS 3 OR MORE VIEWS, XR FOOT LEFT 3 OR MORE VIEWS HISTORY: Left hand, left foot, bilateral knee, and bilateral low back pain. FINDINGS: No comparison. 3 views of the left hand demonstrate normal alignment. No fracture. Moderate to severe 1st carpometacarpal osteoarthritis. Moderate thumb interphalangeal osteoarthritis. Mild 1st and 2nd metacarpophalangeal osteoarthritis. Mild to moderate osteoarthritis throughout the interphalangeal joints of fingers, some of which demonstrates subchondral cysts. No definite erosions. Mild soft tissue swelling of the left wrist. 3 views of the left foot demonstrate apparent normal alignment on these nonweightbearing images. No acute fracture. Normal mineralization. No erosions. Normal joint spaces. Small plantar heel spur. No significant soft tissue swelling. 3 total radiographs imaging both knees demonstrate mild lateral subluxation of the tibiae with respect to the femora, slightly greater on the left. Mild bilateral genu varus, slightly greater on the left. No fracture. Severe lateral compartment predominant tricompartmental left knee osteoarthritis with multiple loose intra-articular bodies. Trace left knee joint effusion. Moderate lateral compartment predominant tricompartmental right knee osteoarthritis with trace right knee joint effusion. 3 views of the bilateral sacroiliac joints demonstrate normal alignment. No fracture. Combined anterior and posterior instrumented fusion at L5-S1. This appears similar as compared to prior lumbar spine radiographs dated 12/22/2022. Mild bilateral sacroiliac osteoarthritis. No ankylosis. No erosions. Hip joint spaces are normal. No soft tissue abnormalities. Procedure Note Nino Corral MD - 11/20/2024 EXAMINATION: XR HAND LEFT 3 OR MORE VIEWS, XR KNEE BILATERAL AP STANDING, XR SACROILIAC JOINTS 3 OR MORE VIEWS, XR FOOT LEFT 3 OR MORE VIEWS HISTORY: Left hand, left foot, bilateral knee, and bilateral low back pain. FINDINGS: No comparison. 3 views of the left hand demonstrate normal alignment. No fracture. Moderate to severe 1st carpometacarpal osteoarthritis. Moderate thumb interphalangeal osteoarthritis. Mild 1st and 2nd metacarpophalangeal osteoarthritis. Mild to moderate osteoarthritis throughout the interphalangeal joints of fingers, some of which demonstrates subchondral cysts. No definite erosions. Mild soft tissue swelling of the left wrist. 3 views of the left foot demonstrate apparent normal alignment on these nonweightbearing images. No acute fracture. Normal mineralization. No erosions. Normal joint spaces. Small plantar heel spur. No significant soft tissue swelling. 3 total radiographs imaging both knees demonstrate mild lateral subluxation of the tibiae with respect to the femora, slightly greater on the left. Mild bilateral genu varus, slightly greater on the left. No fracture. Severe lateral compartment predominant tricompartmental left knee osteoarthritis with multiple loose intra-articular bodies. Trace left knee joint effusion. Moderate lateral compartment predominant tricompartmental right knee osteoarthritis with trace right knee joint effusion. 3 views of the bilateral sacroiliac joints demonstrate normal alignment. No fracture. Combined anterior and posterior instrumented fusion at L5-S1. This appears similar as compared to prior lumbar spine radiographs dated 12/22/2022. Mild bilateral sacroiliac osteoarthritis. No ankylosis. No erosions. Hip joint spaces are normal. No soft tissue abnormalities. IMPRESSION: 1. No radiographic evidence of inflammatory arthritis involving the left hand, left foot, bilateral knees, or bilateral sacroiliac joints. 2. Mild bilateral sacroiliac osteoarthritis. 3. Severe lateral compartment predominant tricompartmental left knee osteoarthritis with multiple loose intra-articular bodies. 4. Moderate lateral compartment predominant tricompartmental right knee osteoarthritis. 5. Moderate to severe left 1st carpometacarpal osteoarthritis. Electronically signed by: Nino Corral MD Delia Post NP IMG XR PROCEDURES Fin al Result * XR Knee Bilateral Ap Standing (11/20/2024 3:23 PM SEASONER) Anatomical Region Laterality Modality Lower Extremities, Knee Bilateral Computed Radiography 11/20/2024 3:54 PM SEASONER Impressions 11/20/2024 3:54 PM SEASONER 1. No radiographic evidence of inflammatory arthritis involving the left hand, left foot, bilateral knees, or bilateral sacroiliac joints. 2. Mild bilateral sacroiliac osteoarthritis. 3. Severe lateral compartment predominant tricompartmental left knee osteoarthritis with multiple loose intra-articular bodies. 4. Moderate lateral compartment predominant tricompartmental right knee osteoarthritis. 5. Moderate to severe left 1st carpometacarpal osteoarthritis. Electronically signed by: Nino Corral MD Narrative 11/20/2024 3:54 PM SEASONER EXAMINATION: XR HAND LEFT 3 OR MORE VIEWS, XR KNEE BILATERAL AP STANDING, XR SACROILIAC JOINTS 3 OR MORE VIEWS, XR FOOT LEFT 3 OR MORE VIEWS HISTORY: Left hand, left foot, bilateral knee, and bilateral low back pain. FINDINGS: No comparison. 3 views of the left hand demonstrate normal alignment. No fracture. Moderate to severe 1st carpometacarpal osteoarthritis. Moderate thumb interphalangeal osteoarthritis. Mild 1st and 2nd metacarpophalangeal osteoarthritis. Mild to moderate osteoarthritis throughout the interphalangeal joints of fingers, some of which demonstrates subchondral cysts. No definite erosions. Mild soft tissue swelling of the left wrist. 3 views of the left foot demonstrate apparent normal alignment on these nonweightbearing images. No acute fracture. Normal mineralization. No erosions. Normal joint spaces. Small plantar heel spur. No significant soft tissue swelling. 3 total radiographs imaging both knees demonstrate mild lateral subluxation of the tibiae with respect to the femora, slightly greater on the left. Mild bilateral genu varus, slightly greater on the left. No fracture. Severe lateral compartment predominant tricompartmental left knee osteoarthritis with multiple loose intra-articular bodies. Trace left knee joint effusion. Moderate lateral compartment predominant tricompartmental right knee osteoarthritis with trace right knee joint effusion. 3 views of the bilateral sacroiliac joints demonstrate normal alignment. No fracture. Combined anterior and posterior instrumented fusion at L5-S1. This appears similar as compared to prior lumbar spine radiographs dated 12/22/2022. Mild bilateral sacroiliac osteoarthritis. No ankylosis. No erosions. Hip joint spaces are normal. No soft tissue abnormalities. Procedure Note Nino Corral MD - 11/20/2024 EXAMINATION: XR HAND LEFT 3 OR MORE VIEWS, XR KNEE BILATERAL AP STANDING, XR SACROILIAC JOINTS 3 OR MORE VIEWS, XR FOOT LEFT 3 OR MORE VIEWS HISTORY: Left hand, left foot, bilateral knee, and bilateral low back pain. FINDINGS: No comparison. 3 views of the left hand demonstrate normal alignment. No fracture. Moderate to severe 1st carpometacarpal osteoarthritis. Moderate thumb interphalangeal osteoarthritis. Mild 1st and 2nd metacarpophalangeal osteoarthritis. Mild to moderate osteoarthritis throughout the interphalangeal joints of fingers, some of which demonstrates subchondral cysts. No definite erosions. Mild soft tissue swelling of the left wrist. 3 views of the left foot demonstrate apparent normal alignment on these nonweightbearing images. No acute fracture. Normal mineralization. No erosions. Normal joint spaces. Small plantar heel spur. No significant soft tissue swelling. 3 total radiographs imaging both knees demonstrate mild lateral subluxation of the tibiae with respect to the femora, slightly greater on the left. Mild bilateral genu varus, slightly greater on the left. No fracture. Severe lateral compartment predominant tricompartmental left knee osteoarthritis with multiple loose intra-articular bodies. Trace left knee joint effusion. Moderate lateral compartment predominant tricompartmental right knee osteoarthritis with trace right knee joint effusion. 3 views of the bilateral sacroiliac joints demonstrate normal alignment. No fracture. Combined anterior and posterior instrumented fusion at L5-S1. This appears similar as compared to prior lumbar spine radiographs dated 12/22/2022. Mild bilateral sacroiliac osteoarthritis. No ankylosis. No erosions. Hip joint spaces are normal. No soft tissue abnormalities. IMPRESSION: 1. No radiographic evidence of inflammatory arthritis involving the left hand, left foot, bilateral knees, or bilateral sacroiliac joints. 2. Mild bilateral sacroiliac osteoarthritis. 3. Severe lateral compartment predominant tricompartmental left knee osteoarthritis with multiple loose intra-articular bodies. 4. Moderate lateral compartment predominant tricompartmental right knee osteoarthritis. 5. Moderate to severe left 1st carpometacarpal osteoarthritis. Electronically signed by: Nino Corral MD Delia Post NP IMG XR PROCEDURES Fin al Result * XR Hand Left 3 or More Views (11/20/2024 3:23 PM SEASONER) Anatomical Region Laterality Modality Upper Extremities, Hand Left Computed Radiography 11/20/2024 3:54 PM SEASONER Impressions 11/20/2024 3:54 PM SEASONER 1. No radiographic evidence of inflammatory arthritis involving the left hand, left foot, bilateral knees, or bilateral sacroiliac joints. 2. Mild bilateral sacroiliac osteoarthritis. 3. Severe lateral compartment predominant tricompartmental left knee osteoarthritis with multiple loose intra-articular bodies. 4. Moderate lateral compartment predominant tricompartmental right knee osteoarthritis. 5. Moderate to severe left 1st carpometacarpal osteoarthritis. Electronically signed by: Nino Corral MD Narrative 11/20/2024 3:54 PM SEASONER EXAMINATION: XR HAND LEFT 3 OR MORE VIEWS, XR KNEE BILATERAL AP STANDING, XR SACROILIAC JOINTS 3 OR MORE VIEWS, XR FOOT LEFT 3 OR MORE VIEWS HISTORY: Left hand, left foot, bilateral knee, and bilateral low back pain. FINDINGS: No comparison. 3 views of the left hand demonstrate normal alignment. No fracture. Moderate to severe 1st carpometacarpal osteoarthritis. Moderate thumb interphalangeal osteoarthritis. Mild 1st and 2nd metacarpophalangeal osteoarthritis. Mild to moderate osteoarthritis throughout the interphalangeal joints of fingers, some of which demonstrates subchondral cysts. No definite erosions. Mild soft tissue swelling of the left wrist. 3 views of the left foot demonstrate apparent normal alignment on these nonweightbearing images. No acute fracture. Normal mineralization. No erosions. Normal joint spaces. Small plantar heel spur. No significant soft tissue swelling. 3 total radiographs imaging both knees demonstrate mild lateral subluxation of the tibiae with respect to the femora, slightly greater on the left. Mild bilateral genu varus, slightly greater on the left. No fracture. Severe lateral compartment predominant tricompartmental left knee osteoarthritis with multiple loose intra-articular bodies. Trace left knee joint effusion. Moderate lateral compartment predominant tricompartmental right knee osteoarthritis with trace right knee joint effusion. 3 views of the bilateral sacroiliac joints demonstrate normal alignment. No fracture. Combined anterior and posterior instrumented fusion at L5-S1. This appears similar as compared to prior lumbar spine radiographs dated 12/22/2022. Mild bilateral sacroiliac osteoarthritis. No ankylosis. No erosions. Hip joint spaces are normal. No soft tissue abnormalities. Procedure Note Nino Corral MD - 11/20/2024 EXAMINATION: XR HAND LEFT 3 OR MORE VIEWS, XR KNEE BILATERAL AP STANDING, XR SACROILIAC JOINTS 3 OR MORE VIEWS, XR FOOT LEFT 3 OR MORE VIEWS HISTORY: Left hand, left foot, bilateral knee, and bilateral low back pain. FINDINGS: No comparison. 3 views of the left hand demonstrate normal alignment. No fracture. Moderate to severe 1st carpometacarpal osteoarthritis. Moderate thumb interphalangeal osteoarthritis. Mild 1st and 2nd metacarpophalangeal osteoarthritis. Mild to moderate osteoarthritis throughout the interphalangeal joints of fingers, some of which demonstrates subchondral cysts. No definite erosions. Mild soft tissue swelling of the left wrist. 3 views of the left foot demonstrate apparent normal alignment on these nonweightbearing images. No acute fracture. Normal mineralization. No erosions. Normal joint spaces. Small plantar heel spur. No significant soft tissue swelling. 3 total radiographs imaging both knees demonstrate mild lateral subluxation of the tibiae with respect to the femora, slightly greater on the left. Mild bilateral genu varus, slightly greater on the left. No fracture. Severe lateral compartment predominant tricompartmental left knee osteoarthritis with multiple loose intra-articular bodies. Trace left knee joint effusion. Moderate lateral compartment predominant tricompartmental right knee osteoarthritis with trace right knee joint effusion. 3 views of the bilateral sacroiliac joints demonstrate normal alignment. No fracture. Combined anterior and posterior instrumented fusion at L5-S1. This appears similar as compared to prior lumbar spine radiographs dated 12/22/2022. Mild bilateral sacroiliac osteoarthritis. No ankylosis. No erosions. Hip joint spaces are normal. No soft tissue abnormalities. IMPRESSION: 1. No radiographic evidence of inflammatory arthritis involving the left hand, left foot, bilateral knees, or bilateral sacroiliac joints. 2. Mild bilateral sacroiliac osteoarthritis. 3. Severe lateral compartment predominant tricompartmental left knee osteoarthritis with multiple loose intra-articular bodies. 4. Moderate lateral compartment predominant tricompartmental right knee osteoarthritis. 5. Moderate to severe left 1st carpometacarpal osteoarthritis. Electronically signed by: Nino Corral MD Delia Post [employer] IMG XR PROCEDURES Fin al Result * XR Sacroiliac Joints 3 or More Views (11/20/2024 3:23 PM SEASONER) Anatomical Region Laterality Modality Pelvis, Body N/A Computed Radiogr aphy 11/20/2024 3:54 PM SEASONER Impressions 11/20/2024 3:54 PM SEASONER 1. No radiographic evidence of inflammatory arthritis involving the left hand, left foot, bilateral knees, or bilateral sacroiliac joints. 2. Mild bilateral sacroiliac osteoarthritis. 3. Severe lateral compartment predominant tricompartmental left knee osteoarthritis with multiple loose intra-articular bodies. 4. Moderate lateral compartment predominant tricompartmental right knee osteoarthritis. 5. Moderate to severe left 1st carpometacarpal osteoarthritis. Electronically signed by: Nino Corral MD Narrative 11/20/2024 3:54 PM SEASONER EXAMINATION: XR HAND LEFT 3 OR MORE VIEWS, XR KNEE BILATERAL AP STANDING, XR SACROILIAC JOINTS 3 OR MORE VIEWS, XR FOOT LEFT 3 OR MORE VIEWS HISTORY: Left hand, left foot, bilateral knee, and bilateral low back pain. FINDINGS: No comparison. 3 views of the left hand demonstrate normal alignment. No fracture. Moderate to severe 1st carpometacarpal osteoarthritis. Moderate thumb interphalangeal osteoarthritis. Mild 1st and 2nd metacarpophalangeal osteoarthritis. Mild to moderate osteoarthritis throughout the interphalangeal joints of fingers, some of which demonstrates subchondral cysts. No definite erosions. Mild soft tissue swelling of the left wrist. 3 views of the left foot demonstrate apparent normal alignment on these nonweightbearing images. No acute fracture. Normal mineralization. No erosions. Normal joint spaces. Small plantar heel spur. No significant soft tissue swelling. 3 total radiographs imaging both knees demonstrate mild lateral subluxation of the tibiae with respect to the femora, slightly greater on the left. Mild bilateral genu varus, slightly greater on the left. No fracture. Severe lateral compartment predominant tricompartmental left knee osteoarthritis with multiple loose intra-articular bodies. Trace left knee joint effusion. Moderate lateral compartment predominant tricompartmental right knee osteoarthritis with trace right knee joint effusion. 3 views of the bilateral sacroiliac joints demonstrate normal alignment. No fracture. Combined anterior and posterior instrumented fusion at L5-S1. This appears similar as compared to prior lumbar spine radiographs dated 12/22/2022. Mild bilateral sacroiliac osteoarthritis. No ankylosis. No erosions. Hip joint spaces are normal. No soft tissue abnormalities. Procedure Note Nino Corral MD - 11/20/2024 EXAMINATION: XR HAND LEFT 3 OR MORE VIEWS, XR KNEE BILATERAL AP STANDING, XR SACROILIAC JOINTS 3 OR MORE VIEWS, XR FOOT LEFT 3 OR MORE VIEWS HISTORY: Left hand, left foot, bilateral knee, and bilateral low back pain. FINDINGS: No comparison. 3 views of the left hand demonstrate normal alignment. No fracture. Moderate to severe 1st carpometacarpal osteoarthritis. Moderate thumb interphalangeal osteoarthritis. Mild 1st and 2nd metacarpophalangeal osteoarthritis. Mild to moderate osteoarthritis throughout the interphalangeal joints of fingers, some of which demonstrates subchondral cysts. No definite erosions. Mild soft tissue swelling of the left wrist. 3 views of the left foot demonstrate apparent normal alignment on these nonweightbearing images. No acute fracture. Normal mineralization. No erosions. Normal joint spaces. Small plantar heel spur. No significant soft tissue swelling. 3 total radiographs imaging both knees demonstrate mild lateral subluxation of the tibiae with respect to the femora, slightly greater on the left. Mild bilateral genu varus, slightly greater on the left. No fracture. Severe lateral compartment predominant tricompartmental left knee osteoarthritis with multiple loose intra-articular bodies. Trace left knee joint effusion. Moderate lateral compartment predominant tricompartmental right knee osteoarthritis with trace right knee joint effusion. 3 views of the bilateral sacroiliac joints demonstrate normal alignment. No fracture. Combined anterior and posterior instrumented fusion at L5-S1. This appears similar as compared to prior lumbar spine radiographs dated 12/22/2022. Mild bilateral sacroiliac osteoarthritis. No ankylosis. No erosions. Hip joint spaces are normal. No soft tissue abnormalities. IMPRESSION: 1. No radiographic evidence of inflammatory arthritis involving the left hand, left foot, bilateral knees, or bilateral sacroiliac joints. 2. Mild bilateral sacroiliac osteoarthritis. 3. Severe lateral compartment predominant tricompartmental left knee osteoarthritis with multiple loose intra-articular bodies. 4. Moderate lateral compartment predominant tricompartmental right knee osteoarthritis. 5. Moderate to severe left 1st carpometacarpal osteoarthritis. Electronically signed by: Nino Corral MD us Delia Post NP IMG XR PROCEDURES Fin al Result * eGFR (11/20/2024 2:50 PM SEASONER) eGFR 83 >=60 mL/min/1. 73 m2 Comment: Interpretive Data Reference Interval Normal >/= 90 mL/min/1.73m2 Mildly decreased* 60 - 89 mL/min/1.73m2 Mildly to moderately decreased 45 - 59 mL/min/1.73m2 Moderately to severely decreased 30 - 44 mL/min/1.73m2 Severely decreased 15 - 29 mL/min/1.73m2 Kidney Failure < 15 mL/min/1.73m2 *Relative to young adult level Estimated glomerular filtration rate is determined by the 2020 CKD-EPI equation recommended by the National Kid[employer] (A Unifying Approach to GFR Estimation: Recommendations of the NKF-ASK Task Force on Reassessing the Inclusion of Race in Diagnosing Kidney Disease, JASN 2020). The CKD-EPI equation should not be used for patients with unstable renal function and has not been validated in children and those over 70. Current interpretive data was last reviewed 2021. Blood 11/20/2024 2:50 PM SEASONER 11/20/2024 2:59 PM SEASONER Delia Post NP LAB BLOOD ORDERABLES Final Result [facility] [id number] [facility] Department [place] [address] * (ABNORMAL) Differential, auto (11/20/2024 2:50 PM SEASONER) Neutrophil abs 6.0 1.5 - 6.5 K/cumm Imm gran abs 0.1 0.0 - 0.1 K/cumm [facility] Lymphocyte abs 3.0 0.8 - 3.3 K/cumm [facility] Monocyte abs 0.9(H) 0.2 - 0.8 K/cumm [facility] Eosinophil abs 0.5 0.0 - 0.5 K/cumm [facility] Basophil abs 0.1 0.0 - 0.1 K/cumm [facility] [place] Neutrophil pct 56.9 % [facility] Comment: Interpretive Data Percent cell count reference ranges are not reported, since discordance with absolute values may lead to misinterpretation of CBC data. Current Interpretive Data was last revised on 2018. Imm gran pct 0.9 % [facility] Comment: Interpretive Data Percent cell count reference ranges are not reported, since discordance with absolute values may lead to misinterpretation of CBC data. Current Interpretive Data was last revised on 2018. Lymphocyte pct 28.1 % [facility] Comment: Interpretive Data Percent cell count reference ranges are not reported, since discordance with absolute values may lead to misinterpretation of CBC data. Current Interpretive Data was last revised on 2018. Monocyte pct 8.5 % [facility] Comment: Interpretive Data Percent cell count reference ranges are not reported, since discordance with absolute values may lead to misinterpretation of CBC data. Current Interpretive Data was last revised on 2018. Eosinophil pct 4.9 % [facility] Comment: Interpretive Data Percent cell count reference ranges are not reported, since discordance with absolute values may lead to misinterpretation of CBC data. Current Interpretive Data was last revised on 2018. Basophil pct 0.7 % [facility] Comment: Interpretive Data Percent cell count reference ranges are not reported, since discordance with absolute values may lead to misinterpretation of CBC data. Current Interpretive Data was last revised on 2018. Blood 11/20/2024 2:50 PM SEASONER 11/20/2024 2:59 PM SEASONER us Delia Post NP LAB BLOOD ORDERABLES Final Result [facility] [address] [facility]. Department [place] [place] [address] * (ABNORMAL) CBC with auto differential (11/20/2024 2:50 PM SEASONER) WBC 10.5(H) 3.8 - 9.9 K/cumm Hgb 15.3 11.9 - 15.5 g/dL [facility] Hct 47.4(H) 35.6 - 45.5 % [facility] 368 150 - 400 K/cumm [facility] MPV 9.9 9.1 - 12.[address] [facility] RBC 5.47(H) 3.90 - 5.20 M/cumm [facility] MCV 86.7 81.3 - 96.[address] [facility] MCH 28.0 27.1 - 33.[address] [facility] MCHC 32.3 32.3 - 35.7 g/dL [facility] RDW CV 14.0 11.1 - 14.9 % [facility] RDW SD 44.6 35.7 - 48.[address] [facility] NRBC abs 0.00 0.00 - 0.01 K/cumm [facility] Blood 11/20/2024 2:50 PM SEASONER 11/20/2024 2:59 PM SEASONER Delia Post LAB BLOOD ORDERABLES Final Result Performing Organization Address [facility] de Phone Number [facility] [id number] [employer] [address] * Thyroid peroxidase antibody (TPO) (11/20/2024 2:50 PM SEASONER) Anti Thyroid Peroxidase <30 <=34 IUnits/mL Comment: ATPO Interpretive Data Results may be up to 28% higher in patients receiving Itraconazole. Current interpretive data was last revised 2021. Testing performed by: [facility], [address] [facility], [place]., [address] Blood 11/20/2024 2:50 PM SEASONER 11/20/2024 4:44 PM SEASONER Delia Post [employer] LAB BLOOD ORDERABLES Final Result Performing Organization Address City/[facility]/ZIP Co de Phone Number [facility] [address] [employer] [address] * Cyclic citrul peptide antibody, IgG (11/20/2024 2:50 PM SEASONER) Pathologist [facility] CCP Ab <0.5 <=2.9 units/mL Comment: Interpretive data Negative: <3 units/mL Positive: > or equal to 3 units/mL Current interpretive data was last revised on 2017. Testing performed by: [facility], [address] [place]., [address] Blood 11/20/2024 2:50 PM SEASONER 11/20/2024 4:44 PM SEASONER Delia Post [employer] LAB BLOOD ORDERABLES Final Result Performing Organization Address City/[facility]/ZIP Co de Phone Number [email or web address] [id number] [employer]. [place] [address] * Erythrocyte sedimentation rate (11/20/2024 2:50 PM SEASONER) [facility] Erythrocyte sedimentation rate 9 1 - 20 mm/hr Blood 11/20/2024 2:50 PM SEASONER 11/20/2024 2:59 PM SEASONER Delia Post [employer] LAB BLOOD ORDERABLES Final Result Performing Organization Address City/[facility]/ZIP Co de Phone Number [facility] [address] [employer]. [place] [address] * CRP (acute phase) (11/20/2024 2:50 PM SEASONER) Pathologist [facility] CRP 8.0 <=10.0 mg/L Blood 11/20/2024 2:50 PM SEASONER 11/20/2024 2:59 PM SEASONER Delia Post [employer] LAB BLOOD ORDERABLES Final Result [facility] [id number] [employer]. [place] [address] * Creatine kinase (CK), total (11/20/2024 2:50 PM SEASONER) Pathologist [facility] CK 178 30 - 200 Units/L Blood 11/20/2024 2:50 PM SEASONER 11/20/2024 2:59 PM SEASONER Delia Post NP LAB BLOOD ORDERABLES Final Result [facility] [address] [facility]. Department [place] [address] * (ABNORMAL) Comprehensive metabolic panel (11/20/2024 2:50 PM SEASONER) Pathologist [facility] Sodium 138 135 - 145 mmol/L Potassium, pl 4.1 3.3 - 4.9 mmol/L [facility] Chloride 100 97 - 110 mmol/L [facility] CO2 26 22 - 32 mmol/L [facility] Anion gap 12 2 - 15 mmol/L [facility] BUN 18 6 - 25 mg/dL [facility] Creatinine 0.87 0.60 - 1.10 mg/dL [facility] Glucose 105 70 - 199 mg/dL [facility] Comment: Interpretive Data Fasting glucose >/= 126 mg/dl is diagnostic for diabetes. Fasting is defined as no caloric intake for at least 8 hours. Fasting glucose between 100 mg/dl to 125 mg/dl is diagnostic of prediabetes. In a patient with classic symptoms of hyperglycemia or hyperglycemic crisis, a random glucose >/= 200 mg/dl is diagnostic for diabetes. In the absence of unequivocal hyperglycemia, results should be confirmed by repeat testing. The classification and Diagnosis of Diabetes Diabetes Care 2021; 46: S19-S40. Current interpretive data was last revised 2022. Calcium 9.8 8.5 - 10.3 mg/dL [facility] Bilirubin, total 0.4 0.1 - 1.2 mg/dL [facility] Protein, pl 7.9 6.5 - 8.5 g/dL [facility] Albumin 4.2 3.5 - 5.0 g/dL [facility] Alk phos 150(H) 40 - 130 Units/L [facility] ALT 31 7 - 45 Units/L [facility] AST 22 10 - 45 Units/L [facility] Blood 11/20/2024 2:50 PM SEASONER 11/20/2024 2:59 PM SEASONER Delia Post NP LAB BLOOD ORDERABLES Final Result [facility] [address] [facility]. Department [place] [address] from Last 3 Months Insurance Care Teams Construction Project Assistant Relationship Specialty Start Date End Date Ashanti Chin MD [address] [place] [address] [place] [id number] PCP - General Family Medicine 05/10/22
--- OUTSIDE RECORDS SUMMARY | 2025-02-16 13:53 | XMS_ITS | Clinical Summary ---
Author Organization [facility] Address [address] [place] [id number] Care Team Providers Care Supervisor [employer] Name Role Phone Unavailable Primary Care Provider Unavailabl e Social History Tobacco Use Types Packs/Day Years Used Date Smoking Tobacco: Never Assessed Comments Unknown Sex and Gender Information Value Date Recorded Sex Assigned at Not on file Legal Sex Female 6:16 PM CDT Gender Identity Not on file Sexual Orientation Not on file Plan of Treatment Health Maintenance Due Date Last Done Comments Cervical Cancer Screening Pa p Smear (Age 30 to 64) Every 3 Years 1978 Colorectal Cancer Screening Colonoscopy (10 Years) 1978 Annual Physical 1981 Hepatitis C 1996 DTaP, Tdap and Td Vaccines ( 1 - Tdap) 1997 Hepatitis B Vaccines (1 of 3 - 19+ 3-dose series) 1997 Cervical Cancer Screening Pa p with HPV Testing (Age 30 to 64) Every 5 Years 2008 Cervical Cancer Screening with HPV 2008 Mammogram Screening 2018 COVID-19 Vaccine (2023-2 5 season) 2024 Meningococcal B Vaccine Aged Out No l onger eligible based on patient's age to complete this topic Meningococcal Vaccine Aged Out No andreina brian eligible based on patient's age to complete this topic Pneumococcal Vaccine: Pediat rics (0 to 5 Years) and At-Risk Patients (6 to 49 Years) Aged Out No longer eligible b ased on patient's age to complete this topic RSV Immunizations Under 20 Months Aged Out No longer eligible based on patient's age to complete this topic
--- OUTSIDE RECORDS SUMMARY | 2025-02-16 13:53 | XMS_ITS | Clinical Summary ---
Author Organization [facility] Address [address] [place] [address] Care Team Providers Care International Marketing Executive Name Role Phone Ashanti Chin MD Primary [...] lumbar region 01/17/2023 Left foot pain 01/17/2023 Encounters Date Type Department Care Team Description 12/12/2024 Orders Only [facility] Rheumatology [address] [place] [address] Medical Office Building [address] [place] [address] Lara Farr RMA 11/20/2024 2:54 PM HAND GLOVE CLEANER - 11/20/2024 11:59 PM HAND GLOVE CLEANER Hospital Encounter [facility] Imaging [address] [place] [address] Polyarthralgia; Chronic bilateral back pain, unspecified back location Discharge Disposition: Discharge to home or self care 11/20/2024 2:45 PM HAND GLOVE CLEANER Lab [facility] [address] [place] [address] Fibromyalgia; Polyarthralgia; Positive FAISAL (antinuclear antibody); Chronic bilateral back pain, unspecified back location 11/20/2024 1:00 PM HAND GLOVE CLEANER Office Visit [facility] Rheumatology [address] [place] [address] Medical Office Building [address] [place] [address] Delia Post NP Chronic bilateral back pain, unspecified back location (Primary Dx); Polyarthralgia; Positive FAISAL (antinuclear antibody); Fibromyalgia from Last 3 Months Surgical History Surgery Date Site/Laterality Comments SPINAL FUSION SECTION SHOULDER SURGERY KNEE ARTHROSCOPY Bilateral Medical History Medical History Date Comments Abdominal pain Arthritis Headache Dizziness Depression Anxiety Bleeding disorder Family History Medical History Relation Name Comments Anxiety disorder Brother Depression Brother Diabetes Brother Hypertension Brother Anxiety disorder Father Diabetes Father Drug abuse Father Hypertension Father Anxiety disorder Mother Diabetes Mother Drug abuse Mother Hypertension Mother Depression Sister Hypertension Sister Relation Name Status Comments Brother Father Mother Sister Social History Tobacco Use Types Packs/Day Years [...] on file Legal Sex Female 3:07 AM HAND GLOVE CLEANER Gender Identity Not on file Sexual Orientation Not on file Obstetrics History Last Filed Vital Signs Vital Sign Reading Time Taken Comments Blood Pressure 158/98 11/20/2024 1:05 PM HAND GLOVE CLEANER Pulse 113 11/20/2024 1:05 PM HAND GLOVE CLEANER Temperature 37.1 C (98.7 F) 11/20/2024 1:05 PM HAND GLOVE CLEANER Respiratory Rate 18 11/20/2024 1:05 PM HAND GLOVE CLEANER Oxygen Saturation 95% 11/20/2024 1:05 PM HAND GLOVE CLEANER Inhaled Oxygen Concentration - - Weight 122.9 kg (271 lb) 11/20/2024 1:05 PM HAND GLOVE CLEANER Height 180.3 cm (5' 10.98 ) 11/20/2024 1:[address] Body Mass Index 37.81 11/20/2024 1:05 PM HAND GLOVE CLEANER Plan of Treatment Health Maintenance Due Date Last Done Comments Breast Cancer Screening-Mammogram 1978 Cervical Cancer Screening 1978 Colon Cancer Screening-Colonoscopy 1978 Depression Screening 1978 Hepatitis C Screening 1978 Hepatitis B Screening 1996 Regular Well Visit/Exam 18-64 1996 Influenza Vaccine (#1) 2024 8, 09/20/2017, 10/20/2015 DTaP/Tdap/Td Vaccine (2 - Td or Tdap) 12/21/2032 12/21/2022 HPV Vaccines Aged Out No longer eligi ble based on patient's age to complete this topic Pneumococcal vaccine <65 Aged Out No longer eligible based on patient's age to complete this topic Goals Goal Patient Goal Type Associated Problems [...] as needed Medical Devices Implanted Type Area Heater Furnace Device Identifier Shelf Expiration Date Model / Serial / Lot Rods And Screws Back Procedures Procedure Name Priority Date/Time Associated Diagnosis Comments XR FOOT LEFT 3 OR MORE VIEWS Routine 11/20/2024 3:23 PM HAND GLOVE CLEANER Polyarthralgia XR SACROILIAC JOINTS 3 OR MORE VIEWS Schedule Routine, Read Routine (OP Routine) 11/20/2024 3:23 PM HAND GLOVE CLEANER Chronic bilateral back pain, unspecified back location XR KNEE BILATERAL AP STANDING Routine 11/20/2024 3:23 PM HAND GLOVE CLEANER Polyarthralgia XR HAND LEFT 3 OR MORE VIEWS Routine 11/20/2024 3:23 PM HAND GLOVE CLEANER Polyarthralgia EGFR Routine 11/20/2024 2:50 PM HAND GLOVE CLEANER Polyarthralgia DIFFERENTIAL AUTO Routine 11/20/2024 2:5 0 PM HAND GLOVE CLEANER Polyarthralgia CYCLIC CITRUL PEPTIDE ANTIBODY, IGG Routine 11/20/2024 2:50 PM HAND GLOVE CLEANER Polyarthralgia ERYTHROCYTE SEDIMENTATION RATE Routine 11/20/2024 2:50 PM HAND GLOVE CLEANER Polyarthralgia CRP (ACUTE PHASE) Routine 11/20/2024 2:5 0 PM HAND GLOVE CLEANER Polyarthralgia THYROID PEROXIDASE ANTIBODY Routine 11/20/2024 2:50 PM HAND GLOVE CLEANER Positive FAISAL (antinuclear antibody) CBC WITH AUTO DIFFERENTIAL Routine 11/20/2024 2:50 PM HAND GLOVE CLEANER Polyarthralgia COMPREHENSIVE METABOLIC PANEL Routine 11/20/2024 2:50 PM HAND GLOVE CLEANER Polyarthralgia CREATINE KINASE (CK), TOTAL Routine 11/20/2024 2:50 PM HAND GLOVE CLEANER Fibromyalgia from Last 3 Months Results * XR Foot Left 3 or More Views (11/20/2024 3:23 PM HAND GLOVE CLEANER) Anatomical Region Laterality Modality Lower Extremities, Foot Left Computed Radiography 11/20/2024 3:54 PM HAND GLOVE CLEANER Impressions 11/20/2024 3:54 PM HAND GLOVE CLEANER 1. No radiographic evidence of inflammatory arthritis involving the left hand, left foot, bilateral knees, or bilateral sacroiliac joints. 2. Mild bilateral sacroiliac osteoarthritis. 3. Severe lateral compartment predominant tricompartmental left knee osteoarthritis with multiple loose intra-articular bodies. 4. Moderate lateral compartment predominant tricompartmental right knee osteoarthritis. 5. Moderate to severe left 1st carpometacarpal osteoarthritis. Electronically signed by: MD West Gandhi 11/20/2024 3:54 PM HAND GLOVE CLEANER EXAMINATION: XR HAND LEFT 3 OR MORE [...] signed by: Nino Corral MD Delia Post FLOTATION TANK OPERATOR IMG XR PROCEDURES Fin al Result * XR Knee Bilateral Ap Standing (11/20/2024 3:23 PM HAND GLOVE CLEANER) Anatomical Region Laterality Modality Lower Extremities, Knee Bilateral Computed Radiography 11/20/2024 3:54 PM HAND GLOVE CLEANER Impressions 11/20/2024 3:54 PM HAND GLOVE CLEANER 1. No radiographic evidence of inflammatory arthritis [...] Nino Corral MD Narrative 11/20/2024 3:54 PM HAND GLOVE CLEANER EXAMINATION: XR HAND LEFT 3 OR MORE [...] 3 or More Views (11/20/2024 3:23 PM HAND GLOVE CLEANER) Anatomical Region Laterality Modality Upper Extremities, Hand Left Computed Radiography 11/20/2024 3:54 PM HAND GLOVE CLEANER Impressions 11/20/2024 3:54 PM HAND GLOVE CLEANER 1. No radiographic evidence of inflammatory arthritis [...] Nino Corral MD Narrative 11/20/2024 3:54 PM HAND GLOVE CLEANER EXAMINATION: XR HAND LEFT 3 OR MORE [...] 3 or More Views (11/20/2024 3:23 PM HAND GLOVE CLEANER) Anatomical Region Laterality Modality Pelvis, Body N/A Computed Radiogr aphy 11/20/2024 3:54 PM HAND GLOVE CLEANER Impressions 11/20/2024 3:54 PM HAND GLOVE CLEANER 1. No radiographic evidence of inflammatory arthritis [...] Nino Corral MD Narrative 11/20/2024 3:54 PM HAND GLOVE CLEANER EXAMINATION: XR HAND LEFT 3 OR MORE [...] al Result * eGFR (11/20/2024 2:50 PM HAND GLOVE CLEANER) eGFR 83 >=60 mL/min/1. 73 m2 Comment: [...] last reviewed 2021. Blood 11/20/2024 2:50 PM HAND GLOVE CLEANER 11/20/2024 2:59 PM HAND GLOVE CLEANER us Delia Post NP LAB BLOOD ORDERABLES Final Result [facility] [address] [facility]. Department [place] [address] * (ABNORMAL) Differential, auto (11/20/2024 2:50 PM HAND GLOVE CLEANER) Neutrophil abs 6.0 1.5 - 6.5 K/cumm Imm gran abs 0.1 0.0 - 0.1 K/cumm [facility] Lymphocyte abs 3.0 0.8 - 3.3 K/cumm [facility] Monocyte abs 0.9(H) 0.2 - 0.8 K/cumm [facility] Eosinophil abs 0.5 0.0 - 0.5 K/cumm [facility] Basophil abs 0.1 0.0 - 0.1 K/cumm [facility] Neutrophil pct 56.9 % [facility] Comment: Interpretive Data Percent cell count reference ranges are not reported, since discordance with absolute values may lead to misinterpretation of CBC data. Current Interpretive Data was last revised on 2018. Imm gran pct 0.9 % [facility] Comment: Interpretive Data Percent cell count reference ranges are not reported, since discordance with absolute values may lead to misinterpretation of CBC data. Current Interpretive Data was last revised on 2018. Lymphocyte pct 28.1 % [facility] Comment: Interpretive Data Percent cell count reference ranges are not reported, since discordance with absolute values may lead to misinterpretation of CBC data. Current Interpretive Data was last revised on 2018. Monocyte pct 8.5 % [facility] Comment: Interpretive Data Percent cell count reference ranges are not reported, since discordance with absolute values may lead to misinterpretation of CBC data. Current Interpretive Data was last revised on 2018. Eosinophil pct 4.9 % [facility] Comment: Interpretive Data Percent cell count reference ranges are not reported, since discordance with absolute values may lead to misinterpretation of CBC data. Current Interpretive Data was last revised on 2018. Basophil pct 0.7 % [facility] Comment: Interpretive Data Percent cell count reference ranges are not reported, since discordance with absolute values may lead to misinterpretation of CBC data. Current Interpretive Data was last revised on 2018. Blood 11/20/2024 2:50 PM HAND GLOVE CLEANER 11/20/2024 2:59 PM HAND GLOVE CLEANER Delia Post NP LAB BLOOD ORDERABLES Final Result [facility] [address] [facility]. Department [place] [address] * (ABNORMAL) CBC with auto differential (11/20/2024 2:50 PM HAND GLOVE CLEANER) WBC 10.5(H) 3.8 - 9.9 K/cumm Hgb 15.3 11.9 - 15.5 g/dL [facility] Hct 47.4(H) 35.6 - 45.5 % [facility] Plt 368 150 - 400 K/cumm [facility] W MPV 9.9 9.1 - 12.3 fL [facility] RBC 5.47(H) 3.90 - 5.20 M/cumm [facility] W MCV 86.7 81.3 - 96.4 fL [facility] MCH 28.0 27.1 - 33.3 pg [facility] MCHC 32.3 32.3 - 35.7 g/dL [facility] W RDW CV 14.0 11.1 - 14.9 % [facility] R[facility] SD 44.6 35.7 - 48.1 fL [facility] NRBC abs 0.00 0.00 - 0.01 K/cumm [facility] W Blood 11/20/2024 2:50 PM HAND GLOVE CLEANER 11/20/2024 2:59 PM HAND GLOVE CLEANER Delia Sharmin Dostal FLOTATION TANK OPERATOR LAB BLOOD ORDERABLES Final Result Performing Organization Address [facility] Co de Phone Number TALIB [facility] [address] [address]. [facility] [email or web address] [address] * Thyroid peroxidase antibody (TPO) (11/20/2024 2:50 PM HAND GLOVE CLEANER) Pathologist [facility] Anti Thyroid Peroxidase <30 <=34 IUnits/mL Comment: ATPO Interpretive Data Results may be up to 28% higher in patients receiving Itraconazole. Current interpretive data was last revised 2021. Testing performed by: [facility], [address] [place] [address]., [id number] Blood 11/20/2024 2:50 PM HAND GLOVE CLEANER 11/20/2024 4:44 PM HAND GLOVE CLEANER Delia Post LAB BLOOD ORDERABLES Final Result Performing Organization Address [facility] de Phone Number [facility] [address] [address] [employer] [address] * Cyclic citrul peptide antibody, IgG (11/20/2024 2:50 PM HAND GLOVE CLEANER) Pathologist [facility] CCP Ab <0.5 <=2.9 units/mL Comment: Interpretive data Negative: <3 units/mL Positive: > or equal to 3 units/mL Current interpretive data was last revised on 2017. Testing performed by: [facility], [address] [place]., [address] Blood 11/20/2024 2:50 PM HAND GLOVE CLEANER 11/20/2024 4:44 PM HAND GLOVE CLEANER [facility] FLOTATION TANK OPERATOR LAB BLOOD ORDERABLES Final Result Performing Organization Address [facility] Co de Phone Number TALIB [facility] [address] [address] [employer]. [facility] [email or web address] [place], [place] [id number] * Erythrocyte sedimentation rate (11/20/2024 2:50 PM HAND GLOVE CLEANER) Pathologist [facility] Erythrocyte sedimentation rate 9 1 - 20 mm/hr Blood 11/20/2024 2:50 PM HAND GLOVE CLEANER 11/20/2024 2:59 PM HAND GLOVE CLEANER Delia Post FLOTATION TANK OPERATOR LAB BLOOD ORDERABLES Final Result Performing Organization Address [facility] Phone Number [facility] [address] [facility] [email or web address] [address] * CRP (acute phase) (11/20/2024 2:50 PM HAND GLOVE CLEANER) [facility] CRP 8.0 <=10.0 mg/L Blood 11/20/2024 2:50 PM HAND GLOVE CLEANER 11/20/2024 2:59 PM HAND GLOVE CLEANER Delia Post FLOTATION TANK OPERATOR LAB BLOOD ORDERABLES Final Result Performing Organization Address [facility] Phone Number [facility] [address] [facility] Department [email or web address] [address] * Creatine kinase (CK), total (11/20/2024 2:50 PM HAND GLOVE CLEANER) [facility] CK 178 30 - 200 Units/L Blood 11/20/2024 2:50 PM HAND GLOVE CLEANER 11/20/2024 2:59 PM HAND GLOVE CLEANER Delia Post FLOTATION TANK OPERATOR LAB BLOOD ORDERABLES Final Result Performing Organization Address [facility] Phone Number [facility] [address] [facility] [email or web address] [address] * (ABNORMAL) Comprehensive metabolic panel (11/20/2024 2:50 PM HAND GLOVE CLEANER) [facility] Sodium 138 135 - 145 mmol/L Potassium, pl 4.1 3.3 - 4.9 mmol/L [facility] Chloride 100 97 - 110 mmol/L [facility] CO2 26 22 - 32 mmol/L [facility] W Anion gap 12 2 - 15 mmol/L [facility] BUN 18 6 - 25 mg/dL [facility] Creatinine 0.87 0.60 - 1.10 mg/dL [facility] Glucose 105 70 - 199 mg/dL [facility] Comment: Interpretive Data Fasting glucose >/= 126 [...] [facility] AST 22 10 - 45 Units/L [facility] Blood 11/20/2024 2:50 PM HAND GLOVE CLEANER 11/20/2024 2:59 PM HAND GLOVE CLEANER Delia Post NP LAB BLOOD ORDERABLES Final Result Performing Organization Address City/State/[facility] Co de Phone Number [facility] [address] [facility] Department [place] [address] from Last 3 Months Insurance [facility] Care Teams International Marketing Executive Relationship Specialty Start Date End Date Ashanti Chin MD [address] [place] [address] [address] MOREIRA [address] [place] [id number] PCP - General Family Medicine 05/10/22
--- OUTSIDE RECORDS SUMMARY | 2025-02-16 13:54 | XMS_ITS | CONTINUITY OF CARE DOCUMENT ---
Author Name [email or web address] Address Unknown Organization [facility] Address [address] [facility] [address] [place] [address] Phone [phone] Care Team Providers Care Beauty Artist Name Role Phone Yuko Zheng MD Unavailable MASON EDWARDS MD Unavailable [phone] MASON EDWARDS MD Unavailable INSURANCE PROVIDERS Payer name Policy type / Coverage type [place] red democr[employer] [place] (2) Medicaid [id number]
--- OUTSIDE RECORDS SUMMARY | 2025-02-16 13:54 | XMS_ITS | Data Portability ---
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 Under sterile conditions I injected both knee joints in the office today with Orthovisc injection number 3. I will see her back as needed we can do this again in 6 months versus cortisone in between we talked about this in detail today she voiced understanding agrees above plan she will call for any further problems difficulties or questions. At 43 years of age with a high BMI we are going to try to buy her some time before we consider total knee arthroplasty. She agreed. [email or web address] Not available 01/18/2024 14:12:04 Plan of Treatment Reminders Order Date Submit Date Provider Last Modified By Organization Details Last Modified Time Details Appointments None recorded. Lab TSH, serum or plasma 2023 [facility] (Lab), [address] [place], [address], 21:32:04 erythrocyte sedimentati on rate by westergren method 2023 024 BEATRIZ Not available 12:45:28 rf (rheumatoid factor), serum 2023 024 BEATRIZ Not available 21:10:47 FAISAL (antinuclea r antibodies) screen, serum 2023 024 BEATRIZ Not available 4 11:30:56 HbA1c (hemoglobin A1c), blood 2023 024 BEATRIZ Not available 4 13:20:36 urinalysis complete, reflex culture 2023 024 BEATRIZ Not available 4 12:45:02 CBC w/ auto diff 2023 024 BEATRIZ Not available 4 20:17:41 BMP, serum or plasma 2023 024 BEATRIZ Not available 4 21:12:14 TSH, serum or plasma 2023 024 BEATRIZ Not available 4 21:29:13 vitamin B12, serum 2023 024 BEATRIZ Not available 4 22:01:21 folate, serum 2023 024 BEATRIZ Not available 4 22:01:26 HbA1c (hemoglobin A1c), blood 2023 024 [email or web address] 4 Not available 4 12:47:31 BMP, serum or plasma 2023 024 [email or web address] 4 Not available 4 12:47:47 lipid panel, serum 2023 024 [email or web address] 4 Not available 4 12:46:56 hepatic function panel, serum 2023 024 [email or web address] 4 Not available 4 12:47:13 vitamin D3, 25-hydroxy, serum 2023 024 [email or web address] 4 Not available 4 12:46:20 TSH, serum or plasma 2023 024 [email or web address] 4 Not available 4 12:46:37 ferritin, serum or plasma 2023 024 [email or web address] 4 Not available 4 12:48:05 iron + total iron-bindin g capacity (TIBC), serum 2023 024 [email or web address] 4 Not available 4 12:48:21 CBC w/ auto diff 2023 024 [email or web address] 4 Not available 4 12:48:41 Referral rheumatologist referral - Please call patient to schedule an appointment . Thank you. 2023 024 [email or web address] Lenore Martinez DPM, [address], [address], [place], [address], 4 08:50:16 rheumatologist referral - Please call patient to schedule an appointment . Thank you. 2023 024 [email or web address] Dov Argueta DPJanice, [address], [address], [place], [address], 4 09:20:09 orthopedic surgeon referral - Please call patient to schedule an appointment . 2023 024 [email or web address] Geovani Yip MD, [address], [address], [place], [address], 4 08:51:58 Procedures knee aspiration/ injection (PROC) 2023 024 [email or web address] In-Office Order, Internal Use Only DO Not Attach Compendium DO Not Attach Compendium, Do Not Delete/merge, [id number] 14:01:10 Surgeries None recorded. Imaging US, pelvis, transabdomi nal + transvagina l - *Please call pt to schedule* [facility] [address], [address], 4 08:59:40 CT, cervical spine, w/o contrast - *Denied* [email or web address] [place] [address], [address], [address], 4 09:19:09 CT, thoracic spine, w/o contrast - *Denied* [email or web address] [place] [address] (Imaging), [address], [place], [address], 4 09:19:09 Medication Orders doxycycline hyclate 100 mg capsule 2023 024 [place] [facility][id number], [address], [place], [place], [id number], 4 17:02:41 Trulicity 0.75 mg/0.5 mL subcutaneou s pen injector 2023 024 [email or web address] [facility] #16147, [address], [place], [place], [id number], 4 21:20:03 amlodipine 10 mg tablet 2023 024 [email or web address] [facility] #82118, [address], [place], [place], [id number], 4 11:07:57 fluconazole 150 mg tablet 2023 024 [email or web address] [facility] #32817, [address], [place], [place], [id number], 4 11:07:31 ORTHOVISC 30 mg/2 mL intra-artic ular syringe 2023 024 [email or web address] [facility] #04178, [address], [place], [place], [id number], 4 14:31:37 oxycodone 5 mg tablet 2023 024 [place] [facility] #55158, [address] , [place], [place], [id number], 12:29:40 Patient TargetsNo targets recorded. Patient InstructionsNo instructions recorded. Reason for Referral Orthopedic Surgeon Referral for Pain in right hip joint Please call patient to schedule an appointment. Referring Physician: Ashanti Chin, [facility], Encounter Date: 01/17/2024 Glue Specialty Supervisor Referral for Pain in left foot Please call patient to schedule an appointment. Thank you. Referring Physician: Ashanti Chin, [facility], Encounter Date: 02/22/2024 Glue Specialty Supervisor Referral for Tend initis of left posterior tibial tendon posterior tibial tendon dysfunction/foot infection Please call patient to schedule an appointment. Thank you. Referring Physician: Lincoln Joyner, [facility], Encounter Date: 05/28/2024 Results Created Date Observation Date Name Description Value Unit Range Abnormal Flag Note LastModifiedBy Organization Detail LastModifiedTime 01/17/2001/17/2024 CBC/C OMPLE TE BLD COUNT W/DIF F white blood cells 10.9 x10'3 /uL 4.2-10 .8 high Not Available [facility] (Lab) [address] [place], [address], 01/17/2024 19:09:22 01/17/20 24 01/17/2024 CBC/C OMPLE TE BLD COUNT W/DIF F red blood cells 5.09 x10'6 /uL 3.80-5 .20 Not Available [facility] (Lab) [address] [place], [address], 01/17/2024 19:09:22 01/17/20 24 01/17/2024 CBC/C OMPLE TE BLD COUNT W/DIF F hemoglobin 14.6 g/dL 12.0-1 5.6 Not Available [facility] (Lab) [address] [place], [address], 01/17/2024 19:09:22 01/17/20 24 01/17/2024 CBC/C OMPLE TE BLD COUNT W/DIF F hematocrit 45.7 % 35.7-4 5.7 Not Available [facility] (Lab) [address] [place], [address], 01/17/2024 19:09:22 01/17/20 24 01/17/2024 CBC/C OMPLE TE BLD COUNT W/DIF F mean red cell volume 89.8 fL 82.0-9 9.0 Not Available [facility] (Lab) [address] [place], [address], 01/17/2024 19:09:22 01/17/20 24 01/17/2024 CBC/C OMPLE TE BLD COUNT W/DIF F mean red cell hemoglobin 28.7 pg 27.0-3 3.0 Not Available [facility] (Lab) [address] [place], [address], 01/17/2024 19:09:22 01/17/20 24 01/17/2024 CBC/C OMPLE TE BLD COUNT W/DIF F mean RBC HGB concentratio n 31.9 g/dL 31.0-3 6.0 Not Available [facility] (Lab) [address] [place], [address], 01/17/2024 19:09:22 01/17/20 24 01/17/2024 CBC/C OMPLE TE BLD COUNT W/DIF F red cell distribution width 13.7 % 11.8-1 5.5 Not Available [facility] (Lab) [address] [place], [address], 01/17/2024 19:09:22 01/17/20 24 01/17/2024 CBC/C OMPLE TE BLD COUNT W/DIF F platelets 358 x10'3 /uL 150-40 0 Not Available [facility] (Lab) [address] [place], [address], 01/17/2024 19:09:22 01/17/20 24 01/17/2024 CBC/C OMPLE TE BLD COUNT W/DIF F mean platelet volume 11.1 fL 9.0-12 .4 Not Available [facility] (Lab) [address] [place], [address], 01/17/2024 19:09:22 01/17/20 24 01/17/2024 CBC/C OMPLE TE BLD COUNT W/DIF F neutrophils 65.0 % 39.0-7 2.0 Not Available [facility] (Lab) [address] [place], [address], 01/17/2024 19:09:22 01/17/20 24 01/17/2024 CBC/C OMPLE TE BLD COUNT W/DIF F lymphocytes 21.7 % 16.0-4 7.0 Not Available [facility] (Lab) [address] [place], [address], 01/17/2024 19:09:22 01/17/20 24 01/17/2024 CBC/C OMPLE TE BLD COUNT W/DIF F monocytes 7.6 % 5.0-12 .0 Not Available [facility] (Lab) [address] [place], [address], 01/17/2024 19:09:22 01/17/20 24 01/17/2024 CBC/C OMPLE TE BLD COUNT W/DIF F eosinophils 4.2 % 1.0-7. 0 Not Available [facility] (Lab) [address] [place], [address], 01/17/2024 19:09:22 01/17/20 24 01/17/2024 CBC/C OMPLE TE BLD COUNT W/DIF F basophils 0.6 % 0.0-2. 0 Not Available [facility] (Lab) [address] [place], [address], 01/17/2024 19:09:22 01/17/20 24 01/17/2024 CBC/C OMPLE TE BLD COUNT W/DIF F immature granulocytes 0.9 % 0.00-0 .50 high Not Available [facility] (Lab) [address] [place], [address], 01/17/2024 19:09:22 01/17/20 24 01/17/2024 CBC/C OMPLE TE BLD COUNT W/DIF F neutrophils, absolute count 7.05 x10'3 /uL 1.5-8. 0 Not Available [facility] (Lab) [address] [place], [address], 01/17/2024 19:09:22 01/17/20 24 01/17/2024 CBC/C OMPLE TE BLD COUNT W/DIF F lymphocytes, absolute count 2.35 x10'3 /uL 1.07-3 .43 Not Available [facility] (Lab) [address] [place], [address], 01/17/2024 19:09:22 01/17/20 24 01/17/2024 CBC/C OMPLE TE BLD COUNT W/DIF F monocytes, absolute count 0.83 x10'3 /uL 0.29-0 .99 Not Available [facility] (Lab) [address] [place], [address], 01/17/2024 19:09:22 01/17/20 24 01/17/2024 CBC/C OMPLE TE BLD COUNT W/DIF F eosinophils, absolute count 0.46 x10'3 /uL 0.02-0 .53 Not Available [facility] (Lab) [address] [place], [address], 01/17/2024 19:09:22 01/17/20 24 01/17/2024 CBC/C OMPLE TE BLD COUNT W/DIF F basophils, absolute count 0.06 x10'3 /uL 0.01-0 .08 Not Available [facility] (Lab) [address] [place], [address], 01/17/2024 19:09:22 01/17/20 24 01/17/2024 CBC/C OMPLE TE BLD COUNT W/DIF F immature granulocytes ,absolute 0.10 x10'3 /uL 0.00-0 .05 high Not Available [facility] (Lab) [address] [place], [address], 01/17/2024 19:09:22 01/17/20 24 01/17/2024 CBC/C OMPLE TE BLD COUNT W/DIF F nucleated red blood cells 0.0 % -0 Not Available [facility] (Lab) [address] [place], [address], 01/17/2024 19:09:22 01/17/20 24 01/17/2024 CBC/C OMPLE TE BLD COUNT W/DIF F NRBC# 0.00 x10'3 /uL Not Available [facility] (Lab) [address] [place], [address], 01/17/2024 19:09:22 01/17/20 24 01/17/2024 IRON/ TIBC PANEL total iron binding capacity 361 mcg/d L 265-47 5 Not Available [facility] (Lab) [address] [place], [address], 01/17/2024 19:20:46 01/17/20 24 01/17/2024 IRON/ TIBC PANEL % transferrin saturation 24 % 20-55 Not Available [facility] (Lab) [address] [place], [address], 01/17/2024 19:20:46 01/17/20 24 01/17/2024 IRON/ TIBC PANEL unsaturated iron bind capacity 274 mcg/d L 126-38 2 Not Available [facility] (Lab) [address] [place], [address], 01/17/2024 19:20:46 01/17/20 24 01/17/2024 IRON/ TIBC PANEL iron 87 mcg/d L 42-175 Not Available [facility] (Lab) [address] [place], [address], 01/17/2024 19:20:46 01/17/20 24 01/17/2024 LIPID PANEL cholesterol 241 mg/dL 140-19 9 high NIH CARLITOS NSUS RECOM MENDA TION FOR SALLY STERO L: ADULT CHILD LOW RISK: <200 <170 BORDE RLINE : <200- 239 ----- HIGH RISK: >240 >200 Not Available [facility] (Lab) [address] [place], [address], 01/17/2024 19:14:26 01/17/20 24 01/17/2024 LIPID PANEL triglyceride s 210 mg/dL 0-150 high NIH CARLITOS NSUS REPOR T RECOM MENDA TION FOR TRIGL YCERI GERONIMO: ADULT CHILD LOW RISK: <150 ----- BODER LINE: 150-1 99 ----- HIGH RISK: >200 ----- Not Available [facility] (Lab) [address] [place], [address], 01/17/2024 19:14:26 01/17/20 24 01/17/2024 LIPID PANEL HDL cholesterol 56 mg/dL 40- Not Available [facility] (Lab) [address] [place], [address], 01/17/2024 19:14:26 01/17/20 24 01/17/2024 LIPID PANEL LDL cholesterol, calculated 143 mg/dL 0-130 high NIH CARLITOS NSUS REPOR T RECOM MENDA TIONS FOR LDL: ADULT CHILD LOW RISK <130 <110 (OPTI MAL LDL) <100 ----- BORDE RLINE : 130-1 59 ----- HIGH RISK: >160 >130 A TRIGL YCERI DE RESUL T >400 INVAL IDATE S THE CALCU LATIO N FOR LDL FRACT IONAT ION - THE LDL RESUL T WILL NOT BE REPOR JOSI. Not Available [facility] (Lab) [address] [place], [address], 01/17/2024 19:14:26 01/17/20 24 01/17/2024 HEPAT IC/LI AMAURY PANEL alkaline phosphatase 116 U/L 38-126 Not Available [facility] (Lab) [address] [place], [address], 01/17/2024 19:14:31 01/17/20 24 01/17/2024 HEPAT IC/LI AMAURY PANEL alanine aminotransfe rase 32 U/L 0-35 Not Available [facility] (Lab) [address] [place], [address], 01/17/2024 19:14:31 01/17/20 24 01/17/2024 HEPAT IC/LI AMAURY PANEL aspartate aminotransfe rase 31 U/L 15-37 Not Available [facility] (Lab) [address] [place], [address], 01/17/2024 19:14:31 01/17/20 24 01/17/2024 HEPAT IC/LI AMAURY PANEL bilirubin, total 0.50 mg/dL 0.20-1 .30 Not Available [facility] (Lab) [address] [place], [address], 01/17/2024 19:14:31 01/17/20 24 01/17/2024 HEPAT IC/LI AMAURY PANEL bilirubin, conjugated (direct) 0.00 mg/dL 0.00-0 .30 Not Available [facility] (Lab) [address] [place], [address], 01/17/2024 19:14:31 01/17/20 24 01/17/2024 HEPAT IC/LI AMAURY PANEL biliurubin,u ncong. (indirect) 0.20 mg/dL 0.00-1 .1 Not Available [facility] (Lab) [address] [place], [address], 01/17/2024 19:14:31 01/17/20 24 01/17/2024 HEPAT IC/LI AMAURY PANEL total protein 7.3 g/dL 6.3-8. 2 Not Available [facility] (Lab) [address] [place], [address], 01/17/2024 19:14:31 01/17/20 24 01/17/2024 HEPAT IC/LI AMAURY PANEL albumin 4.2 g/dL 3.4-5. 0 Not Available [facility] (Lab) [address] [place], [address], 01/17/2024 19:14:31 01/17/20 24 01/17/2024 HEPAT IC/LI AMAURY PANEL globulin 3.1 g/dL 2.6-4. 2 Not Available [facility] (Lab) [address] [place], [address], 01/17/2024 19:14:31 01/17/20 24 01/17/2024 HEPAT IC/LI AMAURY PANEL A/G ratio 1.4 ratio 1.0-2. 0 Not Available [facility] (Lab) [address] [place], [address], 01/17/2024 19:14:31 01/17/20 24 01/17/2024 BASIC METAB OLIC PANEL sodium 140 mmol/ L 137-14 5 Not Available [facility] (Lab) [address] [place], [address], 01/17/2024 19:14:36 01/17/20 24 01/17/2024 BASIC METAB OLIC PANEL potassium 3.9 mmol/ L 3.5-5. 1 Not Available [facility] (Lab) [address] [place], [address], 01/17/2024 19:14:36 01/17/20 24 01/17/2024 BASIC METAB OLIC PANEL chloride 104 mmol/ L 98-107 Not Available [facility] (Lab) [address] [place], [address], 01/17/2024 19:14:36 01/17/20 24 01/17/2024 BASIC METAB OLIC PANEL carbon dioxide 27 mmol/ L 22-30 Not Available [facility] (Lab) [address] [place], [address], 01/17/2024 19:14:36 01/17/20 24 01/17/2024 BASIC METAB OLIC PANEL anion gap 12.9 mmol/ L 14-22 low Not Available [facility] (Lab) [address] [place], [address], 01/17/2024 19:14:36 01/17/20 24 01/17/2024 BASIC METAB OLIC PANEL glucose 111 mg/dL 70-99 high Not Available [facility] (Lab) [address] [place], [address], 01/17/2024 19:14:36 01/17/20 24 01/17/2024 BASIC METAB OLIC PANEL BUN 23 mg/dL 8-19 high Not Available [facility] (Lab) [address] [place], [address], 01/17/2024 19:14:36 01/17/20 24 01/17/2024 BASIC METAB OLIC PANEL creatinine 0.84 mg/dL 0.66-1 .25 Not Available [facility] (Lab) [address] [place], [address], 01/17/2024 19:14:36 01/17/20 24 01/17/2024 BASIC METAB OLIC PANEL GFR >60 Refer ence Range : [place] ge GFR Healt hy Adult : >60 mL/mi n/1.7 3 m2 Chron ic Kidne y Disea se: 15-60 mL/mi n/1.7 3 m2 Kidne y Failu re: <15/m L/min /1.73 m2 www.n iddk. nih.g ov The MDRD study equat ion has not been valid ated in child flavia <18 years of age; pregn ant women ; the elder ly >85 years of age; or in some racia l or ethni c subgr oups, such as Hisnatasha nics. Outsi de the valid ated margot eters , estim ated GFR is less accur ate, requi ring clini ryley judgm ent on a case- by-ca se basis . Clini ryley inter preta tion for other races and ages must be made by the clini yaneth. The MDRD study equat ion has not been valid ated for the evalu ation of serum creat inine relat ed to nutri darlene l statu s or medic ation usage . For perso ns <18 years of age, a pedia tric GFR calcu lator is avail able on the [facility] websi te: https ://mariann garcia.jennifer chilel.david rg/pr ofess ional s/kdo qi/gf r_cal culat or Not Available [facility] (Lab) [address] [place], [address], 01/17/2024 19:14:36 01/17/20 24 01/17/2024 BASIC METAB OLIC PANEL calcium 9.9 mg/dL 8.4-10 .2 Not Available [facility] (Lab) [address] [place], [address], 01/17/2024 19:14:36 01/17/20 24 01/17/2024 VITAM IN D 25-HY DROXY [id number] 32.8 NG/mL 30-100 Vitam in D Statu s: Defic ient: <20 ng/mL Insuf ficie nt: 20-29 ng/mL Suffi cient : 30-10 0 ng/mL Not Available [facility] (Lab) [address] [place], [address], 01/17/2024 19:35:15 01/17/20 24 01/17/2024 TSH thyroid-stim ulating hormone 5.260 uIU/m L 0.465- 4.680 high Not Available [facility] (Lab) [address] [place], [address], 01/17/2024 19:45:28 01/17/20 24 01/17/2024 DESIRE TIN ferritin 21 NG/mL 6.24-1 37 Not Available [facility] (Lab) [address] [place], [address], 01/17/2024 19:45:35 01/17/20 24 01/17/2024 HEMOG LOBIN A1C HA1C 5.9 % 4.0-6. 0 Diabe papa Scree cruzito Crite wes: <5.7% Consi stent with absen ce of diabe papa 5.7-6 .4% Consi stent with incre ased risk for diabe papa (pred iabet es) >OR=6 .5% Consi stent with diabe papa REFER ENCE: Diabe papa Care 2016, 39( ppl.1 ):s13 -s22 Not Available [facility] (Lab) [address] [place], [address], 01/17/2024 20:29:12 03/25/20 24 03/25/2024 CBC/C OMPLE TE BLD COUNT W/DIF F white blood cells 7.2 x10'3 /uL 4.2-10 .8 Not Available [facility] (Lab) [address] [place], [address], 03/25/2024 20:17:41 03/25/20 24 03/25/2024 CBC/C OMPLE TE BLD COUNT W/DIF F red blood cells 4.82 x10'6 /uL 3.80-5 .20 Not Available [facility] (Lab) [address] [place], [address], 03/25/2024 20:17:41 03/25/20 24 03/25/2024 CBC/C OMPLE TE BLD COUNT W/DIF F hemoglobin 13.7 g/dL 12.0-1 5.6 Not Available [facility] (Lab) [address] [place], [address], 03/25/2024 20:17:41 03/25/20 24 03/25/2024 CBC/C OMPLE TE BLD COUNT W/DIF F hematocrit 42.7 % 35.7-4 5.7 Not Available [facility] (Lab) [address] [place], [address], 03/25/2024 20:17:41 03/25/20 24 03/25/2024 CBC/C OMPLE TE BLD COUNT W/DIF F mean red cell volume 88.6 fL 82.0-9 9.0 Not Available [facility] (Lab) [address] [place], [address], 03/25/2024 20:17:41 03/25/20 24 03/25/2024 CBC/C OMPLE TE BLD COUNT W/DIF F mean red cell hemoglobin 28.4 pg 27.0-3 3.0 Not Available [facility] (Lab) [address] [place], [address], 03/25/2024 20:17:41 03/25/20 24 03/25/2024 CBC/C OMPLE TE BLD COUNT W/DIF F mean RBC HGB concentratio n 32.1 g/dL 31.0-3 6.0 Not Available [facility] (Lab) [address] [place], [address], 03/25/2024 20:17:41 03/25/20 24 03/25/2024 CBC/C OMPLE TE BLD COUNT W/DIF F red cell distribution width 13.8 % 11.8-1 5.5 Not Available [facility] (Lab) [address] [place], [address], 03/25/2024 20:17:41 03/25/20 24 03/25/2024 CBC/C OMPLE TE BLD COUNT W/DIF F platelets 322 x10'3 /uL 150-40 0 Not Available [facility] (Lab) [address] [place], [address], 03/25/2024 20:17:41 03/25/20 24 03/25/2024 CBC/C OMPLE TE BLD COUNT W/DIF F mean platelet volume 11.0 fL 9.0-12 .4 Not Available [facility] (Lab) [address] [place], [address], 03/25/2024 20:17:41 03/25/20 24 03/25/2024 CBC/C OMPLE TE BLD COUNT W/DIF F neutrophils 50.2 % 39.0-7 2.0 Not Available [facility] (Lab) [address] [place], [address], 03/25/2024 20:17:41 03/25/20 24 03/25/2024 CBC/C OMPLE TE BLD COUNT W/DIF F lymphocytes 32.4 % 16.0-4 7.0 Not Available [facility] (Lab) [address] [place], [address], 03/25/2024 20:17:41 03/25/20 24 03/25/2024 CBC/C OMPLE TE BLD COUNT W/DIF F monocytes 9.1 % 5.0-12 .0 Not Available [facility] (Lab) [address] [place], [address], 03/25/2024 20:17:41 03/25/20 24 03/25/2024 CBC/C OMPLE TE BLD COUNT W/DIF F eosinophils 7.0 % 1.0-7. 0 Not Available [facility] (Lab) [address] [place], [address], 03/25/2024 20:17:41 03/25/20 24 03/25/2024 CBC/C OMPLE TE BLD COUNT W/DIF F basophils 0.7 % 0.0-2. 0 Not Available [facility] (Lab) [address] [place], [address], 03/25/2024 20:17:41 03/25/20 24 03/25/2024 CBC/C OMPLE TE BLD COUNT W/DIF F immature granulocytes 0.6 % 0.00-0 .50 high Not Available [facility] (Lab) [address] [place], [address], 03/25/2024 20:17:41 03/25/20 24 03/25/2024 CBC/C OMPLE TE BLD COUNT W/DIF F neutrophils, absolute count 3.61 x10'3 /uL 1.5-8. 0 Not Available [facility] (Lab) [address] [place], [address], 03/25/2024 20:17:41 03/25/20 24 03/25/2024 CBC/C OMPLE TE BLD COUNT W/DIF F lymphocytes, absolute count 2.32 x10'3 /uL 1.07-3 .43 Not Available [facility] (Lab) [address] [place], [address], 03/25/2024 20:17:41 03/25/20 24 03/25/2024 CBC/C OMPLE TE BLD COUNT W/DIF F monocytes, absolute count 0.65 x10'3 /uL 0.29-0 .99 Not Available [facility] (Lab) [address] [place], [address], 03/25/2024 20:17:41 03/25/20 24 03/25/2024 CBC/C OMPLE TE BLD COUNT W/DIF F eosinophils, absolute count 0.50 x10'3 /uL 0.02-0 .53 Not Available [facility] (Lab) [address] [place], [address], 03/25/2024 20:17:41 03/25/20 24 03/25/2024 CBC/C OMPLE TE BLD COUNT W/DIF F basophils, absolute count 0.05 x10'3 /uL 0.01-0 .08 Not Available [facility] (Lab) [address] [place], [address], 03/25/2024 20:17:41 03/25/20 24 03/25/2024 CBC/C OMPLE TE BLD COUNT W/DIF F immature granulocytes ,absolute 0.04 x10'3 /uL 0.00-0 .05 Not Available [facility] (Lab) [address] [place], [id number], 03/25/2024 20:17:41 03/25/20 24 03/25/2024 CBC/C OMPLE TE BLD COUNT W/DIF F nucleated red blood cells 0.0 % -0 Not Available [facility] (Lab) [address] [place], [address], 03/25/2024 20:17:41 03/25/20 24 03/25/2024 CBC/C OMPLE TE BLD COUNT W/DIF F NRBC# 0.00 x10'3 /uL Not Available [facility] (Lab) [address] [place], [id number], 03/25/2024 20:17:41 03/25/20 24 03/25/2024 SEDIM ENTAT ION RATE erythrocyte sedimentatio n rate 10 mm/HR 0-20 Not Available Not Available 03/07 20:31:57 03/25/20 24 03/25/2024 URINA LYSIS COMPL ETE/I RIS W/RFX color YELLOW Not Available Not Availa ble 03/25/2024 20:46:49 03/25/20 24 03/25/2024 URINA LYSIS COMPL ETE/I RIS W/RFX appear EXTRA TURBID abnormal Not Available Not Available 20:46:49 03/25/20 03/25/2024 URINA LYSIS COMPL ETE/I RIS W/RFX specific gravity 1.028 1.001- 1.030 Not Available Not Available 03/25/2024 20:46:49 03/25/20 24 03/25/2024 URINA LYSIS COMPL ETE/I RIS W/RFX pH 5.5 pH_un its 5.0-9. 0 Not Available Not Available 03/25/2024 20:46:49 03/25/20 24 03/25/2024 URINA LYSIS COMPL ETE/I RIS W/RFX leukocytes NEGATI VE aleksandra/u L negati ve- Not Available Not Available 03/25/2024 20:46:49 03/25/20 24 03/25/2024 URINA LYSIS COMPL ETE/I RIS W/RFX nitrite NEGATI VE negati ve- Not Available Not Available 03/25/2024 20:46:49 03/25/20 24 03/25/2024 URINA LYSIS COMPL ETE/I RIS W/RFX protein NEGATI VE mg/dL negati ve- Not Available Not Available 03/25/2024 20:46:49 03/25/20 24 03/25/2024 URINA LYSIS COMPL ETE/I RIS W/RFX glucose NORMAL mg/dL normal - Not Available Not Available 03/25/2024 20:46:49 03/25/20 24 03/25/2024 URINA LYSIS COMPL ETE/I RIS W/RFX ketones NEGATI VE mg/dL negati ve- Not Available Not Available 03/25/2024 20:46:49 03/25/20 24 03/25/2024 URINA LYSIS COMPL ETE/I RIS W/RFX urobilinogen NORMAL mg/dL normal - Not Available Not Available 03/25/2024 20:46:49 03/25/20 24 03/25/2024 URINA LYSIS COMPL ETE/I RIS W/RFX bilirubin NEGATI VE mg/dL negati ve- Not Available Not Available 03/25/2024 20:46:49 03/25/20 24 03/25/2024 URINA LYSIS COMPL ETE/I RIS W/RFX blood 0.03 mg/dL negati ve- abnormal Not Available Not Available 03/25/2024 20:46:49 03/25/20 24 03/25/2024 URINA LYSIS COMPL ETE/I RIS W/RFX white blood cells 0-8 /i??h pfi?? 0-8 Not Available Not Available 03/25/20 20:46:49 03/25/20 24 03/25/2024 URINA LYSIS COMPL ETE/I RIS W/RFX red blood cells 5-10 /i??h pfi?? 0-4 abnormal Not Available Not Available 03/25/20 20:46:49 03/25/20 24 03/25/2024 URINA LYSIS COMPL ETE/I RIS W/RFX bacteria NONE Not Available Not Avail able 03/25/2024 20:46:49 03/25/20 24 03/25/2024 URINA LYSIS COMPL ETE/I RIS W/RFX mucous OCCASI ONAL /i??l pfi?? abnormal Not Available Not Available 03/25/20 20:46:49 03/25/20 24 03/25/2024 URINA LYSIS COMPL ETE/I RIS W/RFX squamous epithelial PACKED FIELD /i??l pfi?? abnormal Not Available Not Available 03/25/20 20:46:49 03/25/20 24 03/25/2024 URINA LYSIS COMPL ETE/I RIS W/RFX calcium oxalate crystal MODERA TE /i??h pfi?? none seen- abnormal Not Available Not Available 03/25/2024 20:46:49 03/25/20 24 03/25/2024 RHEUM ATOID FACTO R rf <8.6 IU/mL 0.0-11 .9 Not Available [facility] (Lab) [address] [place], [address], 03/25/2024 21:10:47 03/25/20 24 03/25/2024 BASIC METAB OLIC PANEL sodium 136 mmol/ L 137-14 5 low Not Available [facility] (Lab) [address] [place], [address], 03/25/2024 21:12:14 03/25/20 24 03/25/2024 BASIC METAB OLIC PANEL potassium 3.3 mmol/ L 3.5-5. 1 low Not Available [facility] (Lab) [address] [place], [address], 03/25/2024 21:12:14 03/25/20 24 03/25/2024 BASIC METAB OLIC PANEL chloride 100 mmol/ L 98-107 Not Available [facility] (Lab) [address] [place], [address], 03/25/2024 21:12:14 03/25/20 24 03/25/2024 BASIC METAB OLIC PANEL carbon dioxide 25 mmol/ L 22-30 Not Available [facility] (Lab) [address] [place], [address], 03/25/2024 21:12:14 03/25/20 24 03/25/2024 BASIC METAB OLIC PANEL anion gap 14.3 mmol/ L 14-22 Not Available [facility] (Lab) [address] [place], [address], 03/25/2024 21:12:14 03/25/20 24 03/25/2024 BASIC METAB OLIC PANEL glucose 139 mg/dL 70-99 high Not Available [facility] (Lab) [address] [place], [address], 03/25/2024 21:12:14 03/25/20 24 03/25/2024 BASIC METAB OLIC PANEL BUN 16 mg/dL 8-19 Not Available [facility] (Lab) [address] [place], [address], 03/25/2024 21:12:14 03/25/20 24 03/25/2024 BASIC METAB OLIC PANEL creatinine 0.64 mg/dL 0.66-1 .25 low Not Available [facility] (Lab) [address] [place], [address], 03/25/2024 21:12:14 03/25/20 24 03/25/2024 BASIC METAB OLIC PANEL GFR >60 Refer ence Range : [place] GFR Healt hy Adult : >60 mL/mi n/1.7 3 m2 Chron ic Kidne y Disea se: 15-60 mL/mi n/1.7 3 m2 Kidne y Failu re: <15/m L/min /1.73 m2 www.n iddk. nih.g ov The MDRD study equat ion has not been valid ated in child flavia <18 years of age; pregn ant women ; the elder ly >85 years of age; or in some racia l or ethni c subgr oups, such as Hispa nics. Outsi de the valid ated margot eters , estim ated GFR is less accur ate, requi ring clini ryley judgm ent on a case- by-ca se basis . Clini ryley inter preta tion for other races and ages must be made by the clini yaneth. The MDRD study equat ion has not been valid ated for the evalu ation of serum creat inine relat ed to nutri darlene l statu s or medic ation usage . For perso ns <18 years of age, a pedia tric GFR calcu lator is avail able on the [facility] websi te: https ://mariann chilel.david ha/su alonso s/harmano qi/gf r_cal culat or Not Available [facility] (Lab) [address] [place], [address], 03/25/2024 21:12:14 03/25/20 24 03/25/2024 BASIC METAB OLIC PANEL calcium 9.1 mg/dL 8.4-10 .2 Not Available [facility] (Lab) [address] [place], [address], 03/25/2024 21:12:14 03/25/20 24 03/25/2024 TSH thyroid-stim ulating hormone 6.930 uIU/m L 0.465- 4.680 high Not Available [facility] (Lab) [address] [place], [address], 03/25/2024 21:29:13 03/25/20 24 03/25/2024 VITAM IN B12 (IZA SRAVANTHI ) vb12 369 pg/mL 239-93 1 Not Available [facility] (Lab) [address] [place], [address], 03/25/2024 22:01:21 03/25/20 24 03/25/2024 FOLAT E, SERUM /PLAS MA folate 12.3 NG/mL 2.76-2 0.0 Not Available [facility] (Lab) [address] [place], [address], 03/25/2024 22:01:26 03/25/20 24 03/26/2024 HEMOG LOBIN A1C HA1C 5.8 % 4.0-6. 0 Diabe papa Scree cruzito Crite wes: <5.7% Consi stent with absen ce of diabe papa 5.7-6 .4% Consi stent with incre ased risk for diabe papa (pred iabet es) >OR=6 .5% Consi stent with diabe papa REFER ENCE: Diabe papa Care 2016, 39(Berry ppl.1 ):s13 -s22 Not Available Not Available 03/26/2024 13:04:28 03/25/20 24 03/28/2024 FAISAL SCREE N RFX TITER /STELLA LUBNA antinuclear antibodies, ifa Positi ve abnormal Negat catarino <1:80 Borde rline 1:80 Posit catarino >1:80 Perfo rmed at: CB - [facility] [address] [place] [address] Lab Direc tor: Juni casanova PhD, Phone : [phone] Not Available [facility] (Lab) [address] [place], [address], 03/28/2024 11:13:28 03/25/20 24 03/28/2024 FAISAL SCREE N RFX TITER /STELLA LUBNA homogeneous pattern 1:640 high ICAP nomen clatu re: AC-1 Not Available [facility] (Lab) [address], [place], [address], 03/28/2024 11:13:28 03/25/20 24 03/28/2024 FAISAL SCREE N RFX TITER /STELLA LUBNA anasp4 Commen t abnormal . Yoon pathak Disea se Assoc iatio n ----- ----- --- ----- ----- ----- ----- ----- ----- ----- ----- ----- Homog eneou s Syste kayla Lupus Eryth emato patricia, Drug Induc ed Syste kayla Lupus Eryth emato patricia, Chron ic Autoi mmune hepat itis, Syed ile Idiop athic Arthr itis ----- ----- --- ----- ----- ----- ----- ----- ----- ----- ----- ----- Speck led Sjogr en Syndr ome, Syste kayla Lupus Eryth emato patricia, [place] Cutan eous Lupus , Neona lee Lupus , Conge nital Heart Block , Mixed Conne ctive Tissu e Disea se, Scler oderm a-dif fuse, Scler oderm a-Aut oimmu ne Myosi tis Overl ap Syndr ome, Syste kayla Lupus Eryth emato patricia-S clero derma -Auto immun e Myosi tis Overl ap Syndr ome, Syste kayla Autoi mmune Rheum atic Disea se, Undif surya bolton Conne ctive Tissu e Disea se ----- ----- --- ----- ----- ----- ----- ----- ----- ----- ----- ----- Nucle olar Syste kayla Scler osis, Scler oderm a-Aut oimmu ne Myosi tis Overl ap Syndr ome, Sjogr en Syndr ome, Fiordaliza ud pheno wiley , Pulmo nary Arter ial Hyper tensi on, Syste kayla Autoi mmune Rheum atic Disea se, Cance r ----- ----- --- ----- ----- ----- ----- ----- ----- ----- ----- ----- Centr omere Scler oderm a-CRE ST, Limit ed Cutan eous SSc, Fiordaliza ud's Pheno wiley , Prima ry Bilia ry Chola ngiti s ----- ----- --- ----- ----- ----- ----- ----- ----- ----- ----- ----- Nucle ar Dot Prima ry Bilia ry Chola ngiti s ----- ----- --- ----- ----- ----- ----- ----- ----- ----- ----- ----- Nucle ar Prima ry Bilia ry Chola ngiti s, Autoi mmune Membr ane Hepat itis/ Liver disea se, Syste kayla Autoi mmune Rheum atic Disea se, Autoi mmune Cytop enias , Linea r Scler oderm a, Antip hosph olipi d Syndr ome ----- ----- --- ----- ----- ----- ----- ----- ----- ----- ----- ----- Perfo rmed at: CB - [facility] n [address] [facility], [place] [address] Lab Direc tor: Juni casanova PhD, Phone : [phone] Not Available [facility] (Lab) [address] [place], [address], 03/28/2024 11:13:28 01/04/20 24 01/03/2024 MRI, hip, w/o contr ast [facility] [address] [place] [address] Patien t Name: ASAD COLEMAN Access ion #: [id number] Sex: F : 1979 3 Dictat ed By: Hector Gonzalez ms Attend ing Physic cassi: ESTRELLITA GODINEZ Orderi Physic cassi: ESTRELLITA GODINEZ Exam Date: 2023 14:05 PM Exam Name: MRI HIP RT WO Admitt ing Diagno sis(es ): CLINIC AL INDICA TION: Right hip pain. COMPAR MANNIE: None TECHNI QUE: MRI of the right hip was perfor med withou t intrav enous contra st. CONTRA ST: None INTERP RETATI ON: Bones and articu lar cartil age: There is no fractu re or disloc ation. There is no avascu lar necros is. Joints : The right hip joint is grossl y mainta ined withou t signif icant narrow ing, subcho ndral cystic change or obviou s cartil age defect . On the large field- of-vie w images , the left hip demons trates articu lar cartil age loss with subcho ndral cysts in the acetab ulum. Soft tissue s: There is right gluteu s medius tendin opathy and partia l-thic kness tear. The right gluteu s minimu s, iliops oas, rectus femori s, hamstr ing tendon s and adduct or tendon s are intact . The contra latera l left hip tendon s are includ ed on the large field- of-vie w images and are grossl y intact . Region al muscle s in the right hip and left hip are unrema rkable . There is no lympha denopa thy. No signif icant bursit is. IMPRES PATRICIO: 1. Right gluteu s medius tendin opathy and partia l-thic kness tear. 2. No signif icant degene rative change s about the right hip. 3. Left hip arthri tis. MRI of the left hip withou t contra st may be obtain ed for [facility] r evalua tion of clinic nader arellano. Page 1 [facility] [address] [facility] [address], [place] [address] Patien t Name: ASAD COLEMAN Access ion #: [id number] Sex: F : 1979 3 Dictat ed By: Hector Gonzalez ms Attend ing Physic cassi: HERBERT HARO Orderi Physic cassi: ESTRELLITA GODINEZ Exam Date: 2023 14:05 PM Exam Name: MRI HIP RT WO Admitt ing Diagno sis(es ): Electr onical ly Signed by: Hector Gonzalez ms at 2023 07:44: 26 AM Page [address] (Imaging) [address] [facility], [place], [address], 01/04/2024 09:17:16 04/04/20 24 04/04/2024 XR, thora cic spine No observ ation record ed. [address] [facility], [place], [address], 05/29/2024 08:03:50 04/04/20 24 04/04/2024 XR, cervi ryley spine , 2 or 3 view No observ ation record ed. [address] [facility], [place], [address], 05/28/2024 16:48:45 04/04/20 24 04/04/2024 XR, thora cic spine No observ ation record ed. [address] [facility], [place], [address], 05/28/2024 16:47:27 04/22/20 24 04/19/2024 US, pelvi s, trans abdom inal + trans vagin al No observ ation record ed. [address], [place], [address], 05/28/2024 16:46:01 Result Notes None recorded. Problems Name Problem SNOMED Code Status Onset Date Resolution Date Notes Provider Name and Address Organization Details Recorded Time Cellulit is of toe of right foot 01895893299 307895 Active 2021 Not Available [facility] 4 01:34:26 Irritabl e bowel syndrome 65094619 Active Not Available [facility] 4 01:34:26 Arthriti s of left knee 33016596899 38565 Active 2019 Not Available [facility] 4 01:34:26 Dysfunct ion of posterio r tibial tendon of left foot 81880105941 17931 Active 2020 Not Available [facility] 4 01:34:26 Disorder of shoulder 267764326 Active Not Available [facility] 4 01:34:26 Bilatera l shoulder joint pain 64394327021 587302 Active 2021 Not Available [facility] 4 01:34:26 Injury of foot 911864342 Active 2020 Not Available [facility] 4 01:34:26 Cellulit is 691677468 Completed Not Available [facility] 3 06:43:55 Pain of left shoulder joint 52865466501 058283 Active 2021 Not Available [facility] 4 01:34:26 Backache 133634131 Active Not Available [facility] 4 01:34:27 Postoper ative visit 824184820 Active 2021 Not Available [facility] 4 01:34:27 Insomnia 602240704 Active Not Available [facility] 4 01:34:27 Menopaus al flushing 567035753 Active Not Available [facility] 4 01:34:27 Cellulit is and abscess of upper arm 915013471 Completed Not Available [facility] 3 06:43:56 Full thicknes s rotator cuff tear 308844803 Active lt shouder Not Available [facility] 4 01:34:27 Idiopath ic peripher al neuropat hy 26810360 Active 2021 Not Available [facility] 4 01:34:27 Morbid obesity 710452002 Active 2019 Not Available [facility] 4 01:34:27 Soft tissue lesion of foot region 744092463 Active 2020 Not Available [facility] 4 01:34:27 Edema 411110304 Active Not Available [facility] 4 01:34:27 Puncture wound of great toe 603192940 Active 2021 Not Available [facility] 4 01:34:27 Mass of axilla 324266981 Active Not Available [facility] 4 01:34:27 Tear of medial meniscus of knee 387526418 Active 2021 Not Available [facility] 4 01:34:27 Tear of medial meniscus of knee 919338887 Active 2021 Not Available [facility] 4 01:34:27 Current tear of medial cartilag e AND/OR meniscus of knee Active 2019 Not Available [facility] 4 01:34:27 Ulcer of big toe 783413268 Active 2021 Not Available [facility] 4 01:34:27 Knee pain Active Not Available [facility] 4 01:34:27 Pain in left foot 04470459266 9107 Active 2021 Not Available [facility] 4 01:34:27 Pain in right foot 88038264480 9107 Active 2021 Not Available [facility] 4 01:34:27 Tendinit is of left posterio r tibial tendon 03952687163 9100 Active 2020 Not Available [facility] 4 01:34:27 Vitamin D deficien cy 50233406 Active Not Available [facility] 4 01:34:27 Iron deficien cy 60355506 Active 2021 Not Available [facility] 4 01:34:27 Depressi ve disorder 25064039 Active Not Available [facility] 4 01:34:27 Seasonal allergic rhinitis 055715413 Active Not Available [facility] 4 01:34:27 Migraine 11275841 Active Not Available [facility] 4 01:34:27 Menorrha mukul 273498901 Active Not Available [facility] 4 01:34:27 Adhesive capsulit is of shoulder 052559362 Active Not Available [facility] 4 01:34:27 Obesity 527042843 Active Not Available [facility] 4 01:34:27 Pain of right knee joint 74000693102 4100 Active 2021 Not Available [facility] 4 01:34:27 Pain of left knee joint 06307819179 4107 Active 2021 Not Available [facility] 4 01:34:27 Pain of bilatera l knee joints 72401873734 4104 Active 2021 Not Available [facility] 4 01:34:27 Foot pain 09380678 Active Not Available [facility] 4 01:34:27 Dysuria 25060099 Active Not Available [facility] 4 01:34:27 Cough 20707579 Active Not Available [facility] 4 01:34:27 Hyperlip idemia 24512452 Active Not Available [facility] 4 01:34:27 Tinea pedis 5644042 Active 2020 Not Available [facility] 4 01:34:27 Fatigue 11469351 Active Not Available [facility] 4 01:34:27 Chronic rhinitis 49545982 Active Not Available [facility] 4 01:34:28 Weight gain 8115702 Active Not Available [facility] 4 01:34:28 Primary fibromya lgia syndrome 37390294 Active Not Available [facility] 4 01:34:28 Hypothyr oidism 03280794 Active 2022 Not Available [facility] 4 01:34:27 Anxiety 21225903 Active 2022 Not Available [facility] 4 01:34:27 Amenorrh ea 96971798 Active 2022 Not Available [facility] 4 01:34:26 Bursitis of olecrano n of right elbow 81753840878 9108 Active 2022 Not Available [facility] 4 01:34:27 Thromboc ytosis 7633633 Active 2022 Not Available [facility] 4 01:34:27 Hypergly cemia 93276816 Active 2022 Not Available [facility] 4 01:34:27 Essentia l hyperten patricio 22437197 Active 2022 Not Available [facility] 4 01:34:27 Impairme nt of balance 789371924 Active 2022 Not Available [facility] 4 01:34:27 Magnetic resonanc e imaging of brain abnormal 971808431 Active 2022 Not Available [facility] 4 01:34:27 Localize d enlarged lymph nodes 385967084 Active 2022 Not Available [facility] 4 01:34:27 Open wound of left foot 51035530092 323770 Active 2022 Not Available [facility] 4 01:34:26 Arthralg ia of the ankle and/or foot 282608090 Active 2022 Not Available [facility] 4 01:34:27 Pain of left hand 16671223380 9103 Active 2022 Not Available [facility] 4 01:34:27 Bilatera l osteoart hritis of knees 24110062724 9107 Active 2022 Not Available [facility] 4 01:34:26 Open wound of left great toe 44053097425 365565 Active 2022 Not Available [facility] 4 01:34:26 Foot callus 491003315 Active 2022 Not Available [facility] 4 01:34:27 Pain in right hip joint 12396428804 9102 Active 2022 Not Available [facility] 4 01:34:27 Trochant felice bursitis of right hip 80260454960 9100 Active 2023 Not Available [facility] 4 01:34:27 Heartbur n 50500776 Active 2023 Ashanti Chin MD [address], [place], [address] , [employer] [facility] 4 11:01:27 Multiple joint pain 73919404 Active 2023 Ashanti Chin MD [address], [address], [place], [address] , [employer] [facility] 4 16:56:18 Type 2 diabetes mellitus 31816714 Active 2023 Ashanti Chin MD [address], [address], [place], [address] , [facility] [facility] 4 12:22:56 Iron deficien cy anemia 99799423 Active 2023 Ashanti Chin MD [address], [address], [place], [address] , [employer] [facility] 4 12:24:40 Neck pain 90868203 Active 2023 Ashanti Chin MD [address], [address], [place], [address] , [employer] [facility] 4 12:49:59 Thoracic back pain 421478072 Active 2023 Ashanti Chin MD [address], [address], [place], [address] , [employer] [facility] 4 12:50:30 Postmeno pausal bleeding 42170023 Active 2023 Ashanti Chin MD [address], [address], [place], [address] , [employer] [facility] 4 10:59:06 Erythroc yte sediment ation rate above referenc e range 528771488 Active 2023 Ashanti Chin MD [address], [address], [place], [address] , [employer] 4 11:10:14 Neuropat hy 304502846 Active 2023 Ashanti Chin MD [address], [address] [address], [place], [address] , [facility] [employer] [facility] 4 11:11:04 Hypokale earl 95710217 Active 2023 Ashanti Chin MD [address], [address] [address], [place], [address] , [employer] 4 13:24:05 Anti-nuc lear factor detected 972567573 Active 2023 Ashanti Chin MD [address], [address] [address], [place], [address] , [facility] [employer] [facility] 4 11:01:57 Infectio n of foot 709204854 Active 2023 RAPHAEL Arnold [address] [facility], [address], [address] , [employer] [facility] 4 16:58:35 Problem Notes None recorded. Procedures Surgical History Date Name Laterality Status Provider Name and Address Organization Details Recorded Time 08/23/20 Wound Care-Podiatry completed Sky Ridley RN [facility] [employer] [facility] 08/23/2023 14:47:15 08/16/20 Wound Care-Podiatry completed Maged Chatman DPM [address] [facility], [address] [address], [place], [address], [facility] [employer] [facility] [employer] [facility] 08/16/2023 13:06:34 06/29/20 23 Rene Bandage completed GERMAN Harmon [address] [facility], [address] [address], [place], [address], [facility] y [employer] [facility] [employer] [facility] 06/29/2023 19:35:52 04/22/20 21 Shoulder completed Not Available [facility] 3 06:40:44 03/10/20 18 Laryngoscopy with biopsy completed Not Available [facility] 01/04/2023 06:40:44 03/02/20 16 Knee completed Not Available [facility] 06:40:44 Hernia repair w/mesh completed Not Available [facility] 01/04/2023 06:40:44 section completed Not Available [facility] 01/04/2023 06:40:44 Rotator cuff surgery completed Not Available [facility] 01/04/2023 06:40:44 exploratory laparotomy completed LAZARO Yeung [facility] 08/03/2023 11:31:16 Imaging Results Imaging Date Name Status LastModified by Organization Details LastModified Time 01/03/2024 MRI, hip, w/o contrast completed [address] (Imaging) [address] [facility], [place], [address], 01/04/2024 09:17:16 04/04/2024 XR, thoracic spine completed [facility] [address], [address], 05/29/2024 08:03:50 04/04/2024 XR, cervical spine, 2 or 3 view completed [address], [address], 05/28/2024 16:48:45 04/04/2024 XR, thoracic spine completed [facility] [address], [address], 05/28/2024 16:47:27 04/19/2024 US, pelvis, transabdominal + transvaginal completed [address], [address], 05/28/2024 16:46:01 Procedure Notes None recorded. Medical Equipment None Reported. Allergies Allergen ID Allergen Name Allergen Category Reaction Reaction Severity Criticality Documentation Date Start Date Code Code System Note Provider Name and Address Organization Details Recorded Time 88611 No known allergy (situatio n) Not available Not available Not available Not available 06/22/2024 31418 6003 SNOMED Maribel Collins APRN [address], [address], [place], [address], [facility] 4 13:46:02 No known drug allergies Medications Name Sig Start Date Stop Date Status Note LastModified by Organization Details LastModified Time celecoxib 200 mg capsule TAKE 1 CAPSULE BY MOUTH EVERY DAY 08/03 completed Not Available Not Available Not Available fluoxetin e 40 mg capsule active Not Available Not Available Not Available cyclobenz aprine 10 mg tablet TAKE 1 TABLET BY MOUTH EVERY 8 HOURS 03/10 completed Not Available Not Available Not Available hydroxyzi ne pamoate 100 mg capsule TAKE 1 CAPSULE FOUR TIMES A DAY NEEDED 12/17 completed Not Available Not Available Not Available Tussin DM 10 mg-100 mg/5 mL oral syrup Take 10 mL every 4 hours by oral route as needed. 06/26 completed Not Available Not Available Not Available amoxicill in 500 mg capsule 06/09 completed Not Available Not Available Not Available silver sulfadiaz ine 1 % topical cream APPLY A 1/16 INCH (1.5 MM) THICK LAYER TO ENTIRE incision AREA BY TOPICAL ROUTE 2 TIMES PER DAY 02/28 completed Not Available Not Available Not Available nystatin 100,000 unit/mL oral suspensio n Take 10 mL 4 times a day by oral route for 7 days. active Not Available Not Available No t Available prednison e 10 mg tablet TAKE 2 TABLETS BY MOUTH TWICE DAILY. STOP MELOXICA M WHILE TAKING PREDNISO NE active Not Available Not Available No t Available venlafaxi ne ER 75 mg capsule,e xtended release 24 hr TAKE 1 CAPSULE DAILY 08/04 completed Not Available Not Available Not Available doxycycli ne hyclate 100 mg capsule TAKE 1 CAPSULE BY MOUTH TWICE DAILY active Not Available Not Available No t Available trazodone 50 mg tablet TAKE ONE TO TWO TABLETS BY MOUTH EVERY NIGHT AT BEDTIME NEEDED FOR INSOMNIA active Not Available Not Available No t Available azithromy iris 250 mg tablet 2 tabs po qd x 1 day then 1 tab po qd x 4 days active Not Available Not Available No t Available ibuprofen 800 mg tablet 08/04 completed Not Available Not Available Not Available tizanidin e 4 mg tablet TAKE 1 TABLET BY MOUTH THREE TIMES DAILY NEEDED FOR SPASM active Not Available Not Available No t Available fluconazo le 150 mg tablet Take 1 tablet by mouth every day for 3 days. active Not Available Not Available No t Available benzonata te 200 mg capsule Take 1 capsule 3 times a day by oral route for 10 days. 03/04 completed Not Available Not Available Not Available cimetidin e 400 mg tablet TAKE 1 TABLET BY MOUTH TWICE DAILY NEEDED active Not Available Not Available No t Available hydrocodo ne 5 mg-acetam inophen 325 mg tablet 06/09 completed Not Available Not Available Not Available meloxicam 15 mg tablet TAKE 1 TABLET BY MOUTH EVERY DAY NEEDED active Not Available Not Available No t Available Medrol (Sherwin) 4 mg tablets in a dose pack Take per package instruct ions 10/10 completed Not Available Not Available Not Available bupivacai ne HCl 0.5 % (5 mg/mL) injection solution Take 40 mg by injectio n route. 12/12 completed Not Available Not Available Not Available prednison e 20 mg tablet Take 2 tablets every day by oral route for 5 days. 04/18 completed Not Available Not Available Not Available spironola ctone 100 mg tablet TAKE 2 TABLETS BY MOUTH EVERY DAY active Not Available Not Available No t Available topiramat e 25 mg tablet TAKE 1 TABLET BY MOUTH TWICE DAILY 08/03 completed Not Available Not Available Not Available hydroxyzi ne HCl 50 mg tablet 1-2 tabs po qhs prn 06/09 completed Not Available Not Available Not Available phentermi ne 37.5 mg tablet TAKE 1 TABLET BY MOUTH EVERY DAY 08/03 completed Not Available Not Available Not Available sulfameth oxazole 800 mg-trimet hoprim 160 mg tablet TK 1 T PO BID active Not Available Not Available No t Available hydrocodo ne 10 mg-acetam inophen 325 mg tablet TK 1 TO 2 TS PO Q 6 H PRN 03/11 completed Not Available Not Available Not Available peg-elect rolyte solution 420 gram oral solution MIX AND DRINK DIRECTED 08/03 completed Not Available Not Available Not Available omeprazol e 40 mg capsule,d elayed release Take 1 capsule every day by oral route. 2023 active Not Available Not Available Not Avai lable tramadol 50 mg tablet Take 1 tablet every 6 hours by oral route. 12/17 completed Not Available Not Available Not Available amitripty line 50 mg tablet 03/24 completed Not Available Not Available Not Available oxycodone 15 mg tablet TAKE 1 TABLET EVERY 4 HOURS NEEDED FOR BREAKTHR OUGH PAIN. MAX OF 5 IN 24 HOURS 12/29 completed Not Available Not Available Not Available levothyro xine 75 mcg tablet TAKE 1 TABLET BY MOUTH DAILY 10/26 completed Not Available Not Available Not Available prednison e 10 mg tablets in a dose pack Take 1 tab by mouth, 3 times a day for 3 daysTake 1 tab by mouth 2 times a day for 2 daysTake 1 tab by mouth once a day for 1 day 12/12 completed Not Available Not Available Not Available meloxicam 7.5 mg tablet 08/04 completed Not Available Not Available Not Available levothyro xine 100 mcg tablet TAKE 1 TABLET BY MOUTH EVERY DAY 01/17 completed Not Available Not Available Not Available losartan 100 mg-hydroc hlorothia zide 25 mg tablet TAKE 1 TABLET BY MOUTH EVERY DAY active Not Available Not Available No t Available oxycodone -acetamin ophen 5 mg-325 mg tablet Take 1 tablet every 6 hours by oral route. 08/03 completed Not Available Not Available Not Available amoxicill in 875 mg tablet TAKE 1 TABLET EVERY 12 HOURS FOR 7 DAYS active Not Available Not Available No t Available potassium chloride ER 20 mEq tablet,ex tended release(p art/cryst ) TAKE 1 TABLET BY MOUTH TWICE DAILY active Not Available Not Available No t Available oxycodone -acetamin ophen 10 mg-325 mg tablet 10/20 completed Pain manageme nt Not Available Not Available Not Available Kenalog 10 mg/mL suspensio n for injection Take 40 mg by injectio n route. 12/12 completed [facility]: [phone] Not Available Not Available Not Available amlodipin e 10 mg tablet TAKE 1 TABLET BY MOUTH EVERY DAY active Not Available Not Available No t Available doxycycli ne monohydra te 100 mg capsule Take 1 capsule twice a day by oral route with meals for 5 days. 02/21 completed Not Available Not Available Not Available triamcino lone acetonide 40 mg/mL suspensio n for injection 1 ml IM x 1 03/04 completed Not Available Not Available Not Available levothyro xine 50 mcg tablet TAKE 1 TABLET BY MOUTH EVERY DAY 04/19 completed Not Available Not Available Not Available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 18679 M25.562 M25.561 Bilateral osteoarthritis of knees 6238250432 35652 M17.0 [id number] Ashanti Chin MD [facility] Primary Care [place] [address] [place] [address] 12/12/2023 16:07:16 12/12/2023 17:01:47 Renewal of prescription 925413872 Z76.0 Multiple joint pain 3567 8005 M25.50 small script given [id number] [facility] [address] [place] [address] 12/29/2023 10:36:34 12/29/2023 12:17:20 Trochanteric bursitis of right hip 5052940715 47871 M70.61 Pain in ri ght hip joint 3089357136 64608 M25.414 [id number] NATASHA Mata [facility] [address] [place] [address] 01/04/2024 14:08:03 01/04/2024 15:49:16 Bilateral osteoarthritis of knees 3995821845 46830 M17.0 Trochanter ic bursitis of right hip 1131982569 12246 M70.61 Pain in ri ght hip joint 2286954869 14730 M25.551 Pain of bi lateral knee joints 8939688793 47334 M25.562 M25.788 [id number] NATASHA Mata [facility] [address] [place] [address] 01/11/2024 14:09:01 01/11/2024 15:03:09 Bilateral osteoarthritis of knees 7160306093 17352 M17.0 Pain of bi lateral knee joints 4361428233 72281 M25.562 M25.526 [id number] Ashanti Chin MD [facility] Primary Care [place] [address] [place] [address] 01/17/2024 12:03:09 01/17/2024 15:15:20 Pain in right hip joint 5649723613 47842 M25.551 Vitamin D deficiency 347 07176 E55.9 Hypothyroidism 03578231 E03.9 Hyperlipidemia 18392072 E78.5 Z79.899 Type 2 filipe betes mellitus 51245877 E11.9 Iron defic iency anemia 83050119 D50.9 Multiple joint pain 3567 8005 M25.50 small script given [id number] NATASHA Mata [facility] [address] [place] [address] 01/18/2024 13:56:27 01/18/2024 14:19:01 Bilateral osteoarthritis of knees 5524944413 00841 M17.0 Pain of bi lateral knee joints 1926590963 42264 M25.562 M25.314 [id number] EKNY WORLEY CMA [facility] Primary Care [place] [address] [facility] [address] [place] [address] 02/22/2024 12:17:04 02/22/2024 13:00:42 Pain in left foot 2245285618 09877 M79.672 Type 2 filipe betes mellitus 65804490 E11.9 a1c 5.9 Hypothyroidism 82778561 E03.9 recently increased levothyrox ine, got a new pill organizer and is taking her med regularlyw ill repeat labs in 4 weeks Essential hypertension 97221854 I10 not in good controlinc rease losartan/h ctz 100/25 mgf/u in 4 weeks add amlodipine 10 mg daily Neck pain 51760246 M54.2 Thoracic back pain 56337 8004 M54.6 [id number] Ashanti Chin MD [facility] Primary [facility] [place] [address] [facility] [address] [place] [address] 03/25/2024 10:44:35 03/25/2024 11:23:01 Postmenopausal bleeding 69055882 N95.0 post menopausal spotting over the weekend, will check US and UA Type 2 filipe betes mellitus 35242954 E11.9 a1c 5.9start trulicity for help with weight loss, increase q4 weeks as toleratedr eviewed potential med s/e Hypothyroidism 18471858 E03.9 recently increased levothyrox ine, got a new pill organizer and is taking her med regularlyw ill repeat labs in 4 weeks 03/25/24: repeat labs-don nue to work on taking medication daily Essential hypertension 68809549 I10 not in good controlinc rease losartan/h ctz 100/25 mgf/u in 4 weeks 03/25/24: did not start amlodipine , home bps are still elevatedst art amlodipine 10 mg 1/2 tab dailycheck home bpsf/u in 3 months Erythrocyt e sedimentation rate above reference range 761526625 R70.0 Neuropathy 571275609 G62 .9 check labs [id number] RAPHAEL Arnold [facility] [address] [facility] [address] [place] [address] 05/28/2024 16:33:02 05/28/2024 17:06:42 Hypothyroidism 70860040 E03.9 Tendinitis of left posterior tibial tendon 5886764445 63945 M76.822 Infection of foot 539918 002 L08.9 Health Concerns Section Related Observation LastModified by Organization Detai ls LastModified Time None Recorded Concern Status LastModified by Organization Details LastModified Time None Recorded Advance Directives Directive None Recorded Payers Encounter Date Sequence Insurance Name Policy Number Policy Herrera Covered Member ID Herrera Member ID Guarantor Name 01/17/2024 1 [facility] ON OR AFTER 05/06/21 (MEDICAID REPLACEMENT - HMO) Prachi Coleman [id number] Prachi Coleman 01/18/2024 1 [facility] ON OR AFTER 05/06/21 (MEDICAID REPLACEMENT - HMO) Prachi Coleman [id number] Prachi Rena Coleman 02/22/2024 1 [facility] ON OR AFTER 05/06/21 (MEDICAID REPLACEMENT - HMO) Prachi Coleman [id number] Prachi Coleman 03/25/2024 1 [facility] ON OR AFTER 05/06/21 (MEDICAID REPLACEMENT - HMO) Prachi Coleman [id number] Prachi Coleman 05/28/2024 1 [facility] - DOS ON OR AFTER 21 (MEDICAID REPLACEMENT - HMO) Prachi Coleman [id number] Prachi Coleman Notes Date Note Type Note Provider Name and Address Organization Details Recorded Time 01/17/2024 text/html Taking losartan 100/25 mg daily and tolerating it well taking levothyroxine 100 mcg daily as prescribed right hip pain, needs to see new ortho Ashanti Chin MD [address], [place], [address], [place] 02/04/2024 07:55:43 01/18/2024 text/html Patient returns for Orthovisc injection number 3 both knees. She has moderately severe primary osteoarthritis both knees with significant narrowing of the lateral compartment right knee and narrowing in the medial and lateral compartments of the left knee marginal osteophytes off the medial lateral facets of the patellofemoral articulations as well left worse than right. She is only getting slight relief from the 1st 2 rounds of injections I have advised her to give it some more time. Today she has no erythema effusion or signs of infection. NATASHA Mata [address], [place], [address], [place] 01/18/2024 14:12:22 02/22/2024 text/html Taking losartan 100/25 mg daily and tolerating it well taking levothyroxine 100 mcg daily as prescribed right hip pain, needs to see new ortho update 03/04/24: has continued pain in her left foot, would like to see the rheumatologist she saw in the past. Has significant neuropathy and recurrent ulcers of the feet. Has long h/o degenerative disk disease in cervical and thoracic and lumbar spine with worsening neuropathy in hands and feet and increased pain in neck and back that affects her strength and mobility. Ashanti Chin MD [address], [place], [address], [place] 03/04/2024 08:48:10 03/25/2024 text/html Taking losartan 100/25 mg daily and tolerating it well taking levothyroxine 100 mcg daily as prescribed right hip pain, needs to see new ortho update 03/04/24: has continued pain in her left foot, would like to see the rheumatologist she saw in the past. Has significant neuropathy and recurrent ulcers of the feet. Has long h/o degenerative disk disease in cervical and thoracic and lumbar spine with worsening neuropathy in hands and feet and increased pain in neck and back that affects her strength and mobility. 03/25/24: home blood pressures were running low, she was feeling dizzy/lightheaded. She does note she had been ill the week before. Right now home blood pressures are 140s/90s with a wrist cuff. She has not been taking amlodipine, but has been taking her losartan/hctz daily. She did have vaginal light spotting over the weekend. She has been post menopausal for 4 years. No urinary symptoms. She has vibrating type neuropathy. Ashanti Chin MD [address], [place], [address], [place] 03/25/2024 14:28:36 05/28/2024 text/html pt is here for f/u RM [facility] [address], [place], [address], [place] 05/28/2024 17:03:44 OBGyn Episode No OBEpisode recorded.
== END 2025-02-16 13:52 | disposition home or self-care (01) ==
PROVIDERS: PCP Nurse Practitioner Family; Visit Provider Podiatrist Foot & Ankle Surgery
DX: M76.822 Posterior tibial tendinitis, left leg (principal); S96.812A Strain of other specified muscles and tendons at ankle and foot level, left foot, initial encounter
CPT/HCPCS: 73721

== ENCOUNTER 2025-05-21 18:50 | Emergency (ER) | payer OTHER, SELFPAY ==
[2025-05-21 18:59] VITALS: BP 157/97; PULSE 126; RESP 16; TEMP 36.6; O2SAT 98
--- NOTE | 2025-05-21 18:59 | ED.GENADULT ---
HPI - General Adult General Stated complaint: neck pain, Rash Source: patient Mode of arrival: ambulatory Limitations: no limitations History of Present Illness HPI narrative: Pt is a 44 y/o female presenting with c/o neck pain, rash. Reports URI sx over the weekend, chronic neck pain has since worsened. States resolution of URI sx. Reports pruritic rash to L. upper chest wall onset today. Tx initiated MILITARY SOURCE OPERATIONS OFFICER includes meloxicam and tylenol. No known exposure to COVID/flu/strep. Reports negative strep test at PCP office. No new personal hygiene products, medications, travel, pets. No additional complaints Related Data Home Medications ?Medication ?Instructions ?Recorded ?Confirmed ?Last Taken ?Type duloxetine 60 mg capsule,delayed 60 mg PO BID 06/24/22 05/15/25 06/27/22 History release ferrous sulfate 325 mg (65 mg 65 mg PO DAILY 06/24/22 05/15/25 06/27/22 History iron) tablet (FeroSul) fluoxetine 40 mg capsule 40 mg PO DAILY 06/24/22 05/15/25 06/27/22 History gabapentin 300 mg capsule 300 mg PO BID 06/24/22 05/15/25 06/27/22 History meloxicam 15 mg tablet 15 mg PO DAILY 06/24/22 05/15/25 06/27/22 History omeprazole 40 mg capsule,delayed 40 mg PO DAILY 06/24/22 05/15/25 06/27/22 History release tizanidine 4 mg tablet 4 mg PO Q8-10H PRN Muscle Spasm 06/24/22 05/15/25 06/27/22 History trazodone 50 mg tablet 50 mg PO QHS PRN Insomnia 06/24/22 05/15/25 06/21/22 History losartan 100 1 tablet PO DAILY 02/15/24 05/15/25 Unknown History mg-hydrochlorothiazide 25 mg tablet dulaglutide 0.75 mg/0.5 mL 1.5 mg subcut WEEKLY 07/18/24 05/15/25 Unknown History subcutaneous pen injector (Trulicity) Allergies Allergy/AdvReac Type Severity Reaction Status Date / Time No Known Allergies Allergy Verified 05/21/25 18:52 Review of Systems Review of Systems: CONSTITUTIONAL: Denies body aches, fever, chills, or sweats. EYES: Denies visual changes, redness, or discharge. ENT: Denies rhinorrhea, congestion, sore throat, or otalgia. CARDIOVASCULAR: Denies chest pain, palpitations, or edema. RESPIRATORY: Denies cough or dyspnea. GASTROINTESTINAL: Denies abdominal pain, nausea, vomiting, or diarrhea. GENITOURINARY: Denies dysuria or hematuria. SKIN: Reports rash, itching MUSCULOSKELETAL: Reports neck pain, Denies back pain, joint pain, or myalgia. NEUROLOGIC: Denies headache, numbness, tingling, or weakness. PSYCH: Denies depression or anxiety. All systems reviewed & are unremarkable except as noted in HPI and below PMFSH Past Medical History Medical History delivery delivered Depression Anxiety Osteoarthritis Tear of lateral meniscus of right knee Surgical History Surgical History History of spinal fusion H/O hernia repair H/O shoulder surgery History of arthroscopy of left knee Family History Family History Father Diabetes mellitus Acute myocardial infarction Mother Diabetes mellitus COPD (chronic obstructive pulmonary disease) Social History Social History Smoking packs per day: 1 Smoking cigarettes per day: 20.0 Years smoked: 25 Smoking pack-years: 25.00 Smoking status: Former smoker Tobacco type: cigarettes Second hand tobacco smoke exposure: Yes Smoking end date: 11/06/12 Alcohol intake: never Alcohol use details: rarely Substance use: current Substance use type: marijuana Other substance usage details: uses at night to sleep if needed very rarely Do You Feel Safe in your Home?: Yes Lack of Transportation: No Lack of Food: Never True Current Housing: I Have Housing Concerned About Future Housing: No Difficulty Paying Gas/Electric Bills: No Difficulty Paying for Meds: No Currently Unemployed: No Education: Associate Degree Difficulty w/ Childcare or Family Care: No Living arrangements: with family Occupation/Education: occupation 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 HEAD: Normocephalic, atraumatic. EYES: EOMI. No redness or drainage. Conjunctivae normal. ENT: Mucous membranes pink and moist. Nares clear. No rhinorrhea. TMs normal bilaterally. Throat normal. Uvula midline. NECK: Normal AROM. Supple. No lymphadenopathy. No nuchal rigidity. CHEST: No respiratory distress. Clear to auscultation. HEART: Regular rate and rhythm. Normal peripheral pulses. ABDOMEN: Soft, nontender, nondistended, normal active bowel sounds. MUSCULOSKELETAL: No bony tenderness. No spinal process tenderness. Alvaro trapezius muscles are TTP without crepitus, erythema, edema, ecchymosis. EXTREMITIES: Normal range of motion. No edema. SKIN: Warm, dry. Clustered, erythematous, papular eruption noted to the anterior aspect of the L. upper chest wall without evidence of secondary bacterial skin infection. Capillary refill normal. Normal skin turgor. NEURO: No focal deficits. Alert and oriented x3. Gait steady. PSYCH: Normal affect. No signs of depression or anxiety. Course Course Level of Care: Express Care Visit Vital Signs Vital signs: Vital Signs Temperature 97.9 F 05/21/25 18:59 Pulse Rate 126 H 05/21/25 18:59 Respiratory Rate 16 05/21/25 18:59 Blood Pressure 157/97 H 05/21/25 18:59 Pulse Oximetry 98 05/21/25 18:59 Oxygen Delivery Room Air 05/21/25 18:59 Temperature 97.9 F 05/21/25 18:59 Pulse Rate 126 H 05/21/25 18:59 Respiratory Rate 16 05/21/25 18:59 Blood Pressure 157/97 H 05/21/25 18:59 Pulse Oximetry 98 05/21/25 18:59 Oxygen Delivery Room Air 05/21/25 18:59 Medical Decision Making Vital Signs Vital Signs: Vital Signs Temperature 97.9 F 05/21/25 18:59 Pulse Rate 126 H 05/21/25 18:59 Respiratory Rate 16 05/21/25 18:59 Blood Pressure 157/97 H 05/21/25 18:59 Pulse Oximetry 98 05/21/25 18:59 Oxygen Delivery Room Air 05/21/25 18:59 Temperature 97.9 F 05/21/25 18:59 Pulse Rate 126 H 05/21/25 18:59 Respiratory Rate 16 05/21/25 18:59 Blood Pressure 157/97 H 05/21/25 18:59 Pulse Oximetry 98 05/21/25 18:59 Oxygen Delivery Room Air 05/21/25 18:59 Discharge Plan Discharge Clinical Impression: Cervical myofascial strain Qualifiers: Encounter type: initial encounter Qualified Code(s): S16.1XXA - Strain of muscle, fascia and tendon at neck level, initial encounter Shingles Qualifiers: Herpes zoster complications: without complications Qualified Code(s): B02.9 - Zoster without complications Patient Disposition: Home Condition: Stable Instructions: Antibiotic Form, Cervical Strain (ED), Shingles (ED) Additional Instructions: STop taking tizanadine while taking the valacyclovir and methocarbamol. Go straight to ER should your symptoms become worse or should any new symptoms develop Patient Language: Sami Prescriptions: New methylprednisolone [Medrol (Sherwin)] 4 mg tablets,dose pack See Rx Instructions .ROUTE .COMPLEX Qty: 21 0RF Rx Instructions: orally per package directions valacyclovir 1 gram tablet 1,000 mg PO TID Qty: 30 0RF methocarbamol 500 mg tablet 500 mg PO TID Qty: 10 0RF No Action fluoxetine 40 mg capsule 40 mg PO DAILY trazodone 50 mg tablet 50 mg PO QHS PRN (Reason: Insomnia) tizanidine 4 mg tablet 4 mg PO Q8-10H PRN (Reason: Muscle Spasm) meloxicam 15 mg tablet 15 mg PO DAILY omeprazole 40 mg capsule,delayed release(DR/EC) 40 mg PO DAILY ferrous sulfate [FeroSul] 325 mg (65 mg iron) tablet 65 mg PO DAILY gabapentin 300 mg capsule 300 mg PO BID duloxetine 60 mg capsule,delayed release(DR/EC) 60 mg PO BID Trulicity 0.75 mg/0.5 mL pen injector 1.5 mg subcut WEEKLY losartan-hydrochlorothiazide 100-25 mg tablet 1 tablet PO DAILY triamcinolone acetonide 10 mg/mL suspension 40 mg intra-articular ONCE Qty: 4 0RF lidocaine (PF) 10 mg/mL (1 %) solution 80 mg intra-articular ONCE Qty: 8 0RF Follow-up/Referrals: Gonzalez,Mallorie Tapia NP [Primary Care Provider] - Time of Disposition: 19:18
[2025-05-21 19:32] VITALS: BP 154/100; PULSE 112
== END 2025-05-21 19:32 | disposition home or self-care (01) ==
PROVIDERS: Emergency Provider Registered Nurse; PCP Nurse Practitioner Family
DX: S16.1XXA Strain of muscle, fascia and tendon at neck level, initial encounter (principal); X58.XXXA Exposure to other specified factors, initial encounter; B02.9 Zoster without complications; Z87.891 Personal history of nicotine dependence; M19.90 Unspecified osteoarthritis, unspecified site; F41.9 Anxiety disorder, unspecified; F32.A Depression, unspecified
CPT/HCPCS: 99213; G0463

== ENCOUNTER 2025-05-22 13:41 | Outpatient (CLI) | payer OTHER, SELFPAY ==
--- NOTE | ~2025-05-22 | XR_ITS ---
[id number] Ordering provider: Mallorie Mathur, OFFICE HELPER History: . Cirvicalgia . Comparison: None. FINDINGS: VERTEBRAL BODIES: Normal height and alignment. No visible fracture or subluxation. The dens is intact . Degenerative changes of the spine. Reversal of lordosis. Multilevel uncovertebral joint osteoarthri tic changes. DISK SPACES: Well maintained. PARASPINOUS SOFT TISSUES: No prevertebral soft tissue swelling. IMPRESSION: No acute osseous abnormality cervical spine. Reviewed, dictated and finalized at location A.
--- OUTSIDE RECORDS SUMMARY | 2025-05-22 13:51 | XMS_ITS | Referral Summary ---
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 Gender Identity Not on file Sexual Orientation Not on file Last Filed Vital Signs Vital Sign Reading Time Taken Comments Blood Pressure 158/98 11/20/2024 1:05 PM BOOT LINER MAKER Pulse 113 11/20/2024 1:05 PM BOOT LINER MAKER Temperature 37.1 C (98.7 F) 11/20/2024 1:05 PM BOOT LINER MAKER Respiratory Rate 18 11/20/2024 1:05 PM BOOT LINER MAKER Oxygen Saturation 95% 11/20/2024 1:05 PM BOOT LINER MAKER Inhaled Oxygen Concentration - - Weight 122.9 kg (271 lb) 11/20/2024 1:05 PM BOOT LINER MAKER Height 180.3 cm (5' 10.98) 11/20/2024 1:[address] Body Mass Index 37.81 11/20/2024 1:05 PM BOOT LINER MAKER Plan of Treatment Not on file Goals Goal Patient Goal Type Associated Problems Recent Progress Patient-Stated? Author CCM Chronic Pain Care Plan Chronic Care Management Daniella South RN Note: Problem: Chronic Pain Goals: 1. Minimize further functional decline 2. Maximize quality of life 3. Control pain Strategies: - Activity/exercise program recommendation - Conservative stepwise pain medicine strategy with multi-disciplinary approach - Recommend healthy lifestyle strategies and compensatory methods as needed Medical Devices Implanted Type Area Ocean Lifeguard Device Identifier Shelf Expiration Date Model / Serial / Lot Rods And Screws Back Insurance [facility] Care Teams Container Finishing Inspector Relationship Specialty Start Date End Date Ashanti Chin MD [address] [place] [address] [address] MOREIRA [address] [place] [id number] PCP - General Family Medicine 05/10/22
--- OUTSIDE RECORDS SUMMARY | 2025-05-22 13:51 | XMS_ITS | Clinical Summary ---
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 Gender Identity Not on file Sexual Orientation Not on file Obstetrics History Last Filed Vital Signs Vital Sign Reading Time Taken Comments Blood Pressure 158/98 11/20/2024 1:05 PM LEADERSHIP PROGRAM INTERN Pulse 113 11/20/2024 1:05 PM LEADERSHIP PROGRAM INTERN Temperature 37.1 C (98.7 F) 11/20/2024 1:05 PM LEADERSHIP PROGRAM INTERN Respiratory Rate 18 11/20/2024 1:05 PM LEADERSHIP PROGRAM INTERN Oxygen Saturation 95% 11/20/2024 1:05 PM LEADERSHIP PROGRAM INTERN Inhaled Oxygen Concentration - - Weight 122.9 kg (271 lb) 11/20/2024 1:05 PM LEADERSHIP PROGRAM INTERN Height 180.3 cm (5' 10.98) 11/20/2024 1:[address] Body Mass Index 37.81 11/20/2024 1:05 PM LEADERSHIP PROGRAM INTERN Plan of Treatment Health Maintenance Due Date Last Done Comments Breast Cancer Screening-Mammogram 1978 Cervical Cancer Screening 1978 Colon Cancer Screening-Colonoscopy 1978 Depression Screening 1978 Hepatitis C Screening 1978 Hepatitis B Screening 1996 Regular Well Visit/Exam 18-64 1996 Influenza Vaccine (#1) 2025 8, 09/20/2017, 10/20/2015 DTaP/Tdap/Td Vaccine (2 - Td or Tdap) 12/21/2032 12/21/2022 HPV Vaccines Aged Out No longer eligi ble based on patient's age to complete this topic Pneumococcal vaccine <65 Aged Out No longer eligible based on patient's age to complete this topic Goals Goal Patient Goal Type Associated Problems Recent Progress Patient-Stated? Author CCM Chronic Pain Care Plan Chronic Care Management No Daniella Worley, RN Note: Problem: Chronic Pain Goals: 1. Minimize further functional decline 2. Maximize quality of life 3. Control pain Strategies: - Activity/exercise program recommendation - Conservative stepwise pain medicine strategy with multi-disciplinary approach - Recommend healthy lifestyle strategies and compensatory methods as needed Medical Devices Implanted Type Area Supervisor Concrete Stone Finishing Device Identifier Shelf Expiration Date Model / Serial / Lot Rods And Screws Back Insurance [facility] Care Teams Clinical Psychology Teacher Relationship Specialty Start Date End Date Ashanti Chin MD [address] [place] [address] [address] MOREIRA [address] [place] [id number] PCP - General Family Medicine 05/10/22
--- OUTSIDE RECORDS SUMMARY | 2025-05-22 13:52 | XMS_ITS | Data Portability ---
Author Organization [place] [facility] [employer], Main Office Address [address] [place] [address] Care Team Providers Care Foreign Broadcast Specialist Name Role Phone MASON CHIN Primary Care Provider [phone] MASON CHIN Referring Provider Assessment No assessment recorded. Plan of Treatment Reminders Order Date Submit Date Provider Last Modified By Organization Details Last Modified Time Details Appointments Sick/Acut e 2024 11:00A Janice Mathur NP Not available Not available Not available Follow Up 15 2024 09:45A Janice Mathur NP Not available Not available Not available Lab HbA1c (hemoglob in A1c), blood 2024 025 [facility], [address] [place], [address], 05/15/2025 08:40:42 CMP, serum or plasma 2024 025 [facility], [address] [place], [address], 04/04/2025 04:04:06 CBC w/ auto diff 2024 025 [facility], [address] [place], [address], 04/04/2025 04:04:05 FAISAL (antinucl ear antibodie s) screen, serum 2024 025 [facility], [address] [place], [address], 04/07/2025 15:16:27 rf (rheumato id factor), serum 2024 025 [facility], [address] [place], [address], 05/15/2025 08:40:42 ESR (erythroc yte sedimenta tion rate), blood 2024 025 [facility], [address] [place], [address], 04/10/2025 08:41:39 lipid panel, serum 2024 025 [facility], [address] [place], [address], 04/04/2025 04:04:06 vitamin D, 25-hydrox y, total, serum 2024 025 [facility], [address] [place], [address], 04/04/2025 04:04:05 TSH + free T4, serum 2024 025 [facility], [address] [place], [address], 04/04/2025 04:04:06 iron + TIBC + ferritin, serum 2024 025 [facility], [address] [place], [address], 04/04/2025 04:04:06 TSH, serum or plasma 2023 024 [facility] (Lab), [address] [place], [address], 05/28/2024 21:32:04 Referral podiatris t referral - Please call patient to schedule an appointme nt. Thank you. 2023 024 hrushing6 Lenore Martinez DPM, [address], [address], [place], [address], 06/26/2024 08:50:16 Procedures None recorded. Surgeries None recorded. Imaging XR, cervical spine, 2 or 3 view 2024 [facility] ([facility]), [address], [place], [address], 05/22/2025 13:50:04 Medication Orders triamcino lone acetonide 0.1 % topical cream [address] [id number], [address], [place], [address], 05/22/2025 12:33:41 amoxicill in 875 mg tablet [address] [id number], [address], [place], [address], 05/22/2025 12:33:41 fluticaso ne propionat e 50 mcg/actua tion nasal spray,patricia pension [address] [id number], [address], [place], [address], 04/03/2025 10:48:37 trazodone 50 mg tablet [address] [id number], [address], [place], [address], 04/03/2025 10:48:38 losartan 100 mg-hydroc hlorothia zide 25 mg tablet [address] [id number], [address], [place], [address], 04/03/2025 10:48:41 tizanidin e 4 mg tablet [address] [id number], [address], [place], [address], 04/03/2025 10:48:38 fluoxetin e 40 mg capsule [address] [id number], [address] [place], [address], 04/03/2025 10:48:39 ergocalci ferol (vitamin D2) 1,250 mcg (50,000 unit) capsule [address] [id number], [address] [place], [address], 04/03/2025 10:48:40 omeprazol e 40 mg capsule,d elayed release [address] [id number], [address] [place], [address], 04/03/2025 10:48:39 albuterol sulfate HFA 90 mcg/actua tion aerosol inhaler [address] [id number], [address] [place], [address], 04/03/2025 10:48:40 gabapenti n 300 mg capsule [address] [id number], [address] [place], [address], 04/03/2025 10:48:39 doxycycli ne hyclate 100 mg capsule 2023 024 [facility] #[id number], [address], [id number], 05/22/2025 12:07:37 Patient TargetsNo targets recorded. Patient InstructionsNo instructions recorded. 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 Thank you. Referring Physician: Lincoln Joyner, Family Medicine, Encounter Date: 05/28/2024 Results Created Date Observation Date Name Description Value Unit Range Abnormal Flag Note LastModifiedBy Organization Detail LastModifiedTime 05/21/20 25 05/21/2025 rapid strep group A, throa t STREP A negati ve Not Available [facility] [address], [place], [address], 05/21/2025 12:35:08 02/18/20 25 02/16/2025 MRI, ankle , w/ contr ast No observ ation record ed. [facility] [address] [facility] [address], [place], [address], 03/03/2025 12:17:07 Result Notes None recorded. Problems Name Problem SNOMED Code Status Onset Date Resolution Date Notes Provider Name and Address Organization Details Recorded Time Irritabl e bowel syndrome 57012252 Active Not Available [facility] 4 01:34:26 Disorder of shoulder 106847903 Active Not Available [employer] 4 01:34:26 Cellulit is 793238562 Completed Not Available [facility] 3 06:43:55 Backache 199918336 Active Not Available [facility] 4 01:34:27 Insomnia 896428103 Active Not Available [facility] 4 01:34:27 Menopaus al flushing 916859309 Active Not Available [facility] 4 01:34:27 Cellulit is and abscess of upper arm 371003496 Completed Not Available [facility] 3 06:43:56 Full thicknes s rotator cuff tear 682193532 Active lt shouder Not Available [facility] 4 01:34:27 Edema 777448935 Active Not Available [facility] 4 01:34:27 Mass of axilla 786002067 Active Not Available [facility] 4 01:34:27 Knee pain Active Not Available [facility] 4 01:34:27 Vitamin D deficien cy 10114630 Active Not Available [facility] 4 01:34:27 Depressi ve disorder 09752531 Active Not Available [facility] 4 01:34:27 Seasonal allergic rhinitis 844107734 Active Not Available [facility] 4 01:34:27 Migraine 49937920 Active Not Available [facility] 4 01:34:27 Menorrha mukul 542895642 Active Not Available [facility] 4 01:34:27 Adhesive capsulit is of shoulder 682331421 Active Not Available [facility] 4 01:34:27 Obesity 329734737 Active Not Available [facility] 4 01:34:27 Foot pain 68588437 Active Not Available [facility] 4 01:34:27 Dysuria 65672497 Active Not Available [facility] 4 01:34:27 Cough 05314775 Active Not Available [facility] 4 01:34:27 Hyperlip idemia 67870342 Active Not Available [facility] 4 01:34:27 Fatigue 89670680 Active Not Available [facility] 4 01:34:27 Chronic rhinitis 71888307 Active Not Available [facility] 4 01:34:28 Weight gain 9454906 Active Not Available [facility] 4 01:34:28 Primary fibromya lgia syndrome 53129000 Active Not Available [facility] 4 01:34:28 Arthriti s of left knee 70977604119 05848 Active 2019 Not Available [facility] 4 01:34:26 Current tear of medial cartilag e AND/OR meniscus of knee Active 2019 Not Available [facility] 4 01:34:27 Morbid obesity 783587865 Active 2019 Not Available [facility] 4 01:34:27 Injury of foot 521810263 Active 2020 Not Available [facility] 4 01:34:26 Dysfunct ion of posterio r tibial tendon of left foot 69929087345 59045 Active 2020 Not Available [facility] 4 01:34:26 Soft tissue lesion of foot region 817165727 Active 2020 Not Available [facility] 4 01:34:27 Tendinit is of left posterio r tibial tendon 57296942785 9100 Active 2020 Not Available [facility] 4 01:34:27 Tinea pedis 4905519 Active 2020 Not Available [facility] 4 01:34:27 Postoper ative visit 124919745 Active 2021 Not Available [facility] 4 01:34:27 Iron deficien cy 15787327 Active 2021 Not Available [facility] 4 01:34:27 Tear of medial meniscus of knee 059274580 Active 2021 Not Available [facility] 4 01:34:27 Pain of right knee joint 79727614067 4100 Active 2021 Not Available [facility] 4 01:34:27 Pain of left knee joint 95936931457 4107 Active 2021 Not Available [facility] 4 01:34:27 Pain of left shoulder joint 09379901179 560081 Active 2021 Not Available [facility] 4 01:34:26 Pain in left foot 66532737818 9107 Active 2021 Not Available [facility] 4 01:34:27 Pain in right foot 29229769880 9107 Active 2021 Not Available [facility] 4 01:34:27 Tear of medial meniscus of knee 862235449 Active 2021 Not Available [facility] 4 01:34:27 Pain of bilatera l knee joints 87260465351 4104 Active 2021 Not Available [facility] 4 01:34:27 Bilatera l shoulder joint pain 31900795987 773786 Active 2021 Not Available [facility] 4 01:34:26 Cellulit is of toe of right foot 54694448490 421475 Active 2021 Not Available [facility] 4 01:34:26 Idiopath ic peripher al neuropat hy 40606821 Active 2021 Not Available [facility] 4 01:34:27 Ulcer of big toe 089061876 Active 2021 Not Available [facility] 4 01:34:27 Puncture wound of great toe 049389991 Active 2021 Not Available [facility] 4 01:34:27 Hypothyr oidism 46170521 Active 2022 Not Available [facility] 4 01:34:27 Anxiety 69380865 Active 2022 Mallorie Mathur, [employer] [address] [facility], [facility] [address], [place], [address] , [facility] [employer] [facility] 5 10:39:27 Amenorrh ea 95709442 Active 2022 Not Available [facility] 4 01:34:26 Bursitis of olecrano n of right elbow 62746041109 9108 Active 2022 Not Available [facility] 4 01:34:27 Thromboc ytosis 9782882 Active 2022 Not Available [facility] 4 01:34:27 Hypergly cemia 81703978 Active 2022 Not Available [facility] 4 01:34:27 Essentia l hyperten patricio 36126100 Active 2022 Not Available [facility] 4 01:34:27 Impairme nt of balance 237844096 Active 2022 Not Available [facility] 4 01:34:27 Magnetic resonanc e imaging of brain abnormal 500854879 Active 2022 Not Available [facility] 4 01:34:27 Localize d enlarged lymph nodes 194381888 Active 2022 Not Available [facility] 4 01:34:27 Open wound of left foot 79434636288 828492 Active 2022 Not Available [facility] 4 01:34:26 Pain of joint of ankle and/or foot 969972240 Active 2022 Not Available [facility] 4 01:34:27 Pain of left hand 38043214468 9103 Active 2022 Not Available [facility] 4 01:34:27 Bilatera l osteoart hritis of knees 82859827113 9107 Active 2022 Not Available [facility] 4 01:34:26 Open wound of left great toe 64262136710 747265 Active 2022 Not Available [facility] 4 01:34:26 Foot callus 699116220 Active 2022 Not Available [facility] 4 01:34:27 Pain of right hip joint 72801657919 9102 Active 2022 Not Available [facility] 4 01:34:27 Trochant felice bursitis of right hip 86827556283 9100 Active 2023 Not Available [facility] 4 01:34:27 Heartbur n 45271935 Active 2023 Mason Chin MD [address], [place], [address] , [employer] [facility] [employer] [facility] 4 11:01:27 Pain of multiple joints 92369847 Active 2023 Mason Chin MD [address], [place], [address] , [employer] [facility] [employer] [facility] 4 16:56:18 Type 2 diabetes mellitus 18432492 Active 2023 Mason Chin MD [address], [place], [address] , [employer] [facility] [employer] [facility] 4 12:22:56 Iron deficien cy anemia 95457894 Active 2023 Mason Chin MD [address], [place], [address] , [facility] [employer] [facility] 4 12:24:40 Neck pain 08778185 Active 2023 RAPHAEL Jarrett [address], [address] , [facility] [employer] [facility] 5 12:17:39 Thoracic back pain 517765717 Active 2023 Mason Chin MD [address] [facility], [address], [address] , [facility] [employer] [facility] 4 12:50:30 Postmeno pausal bleeding 20175904 Active 2023 Mason Chin MD [address] [facility], [address], [address] , [facility] [employer] [facility] 4 10:59:06 Erythroc yte sediment ation rate above referenc e range 028568193 Active 2023 Mason Chin MD [address], [address], [address] , [facility] [employer] [facility] 4 11:10:14 Neuropat hy 762424066 Active 2023 Mason Chin MD [address], [address], [address] , [facility] [employer] [facility] 4 11:11:04 Hypokale earl 52720991 Active 2023 Mason Chin MD [address], [address] , [facility] [employer] [facility] 4 13:24:05 Anti-nuc lear factor detected 620786620 Active 2023 Mason Chin MD [address], [address] , [facility] [employer] [facility] 4 11:01:57 Infectio n of foot 696395127 Active 2023 RAPHAEL Arnold [address] [facility], [address], [address] , [facility] [employer] [facility] 4 16:58:35 Primary insomnia 0640760 Active 2024 RAPHAEL Jarrett [address], [address], [place], [address] , [employer] [facility] [employer] [facility] 5 10:39:58 Allergic rhinitis 72079622 Active 2024 RAPHAEL Jarrett [address], [address], [place], [address] , [employer] [facility] [employer] [facility] 5 23:07:23 Gastroes ophageal reflux disease without esophagi tis 317090743 Active 2024 RAPHAEL Jarrett [address], [address], [place], [address] , [employer] [facility] [employer] [facility] 5 23:07:29 Body mass index 30+ - obesity 604645005 Active 2024 RAPHAEL Jarrett [address], [address], [place], [address] , [employer] [facility] [employer] [facility] 5 23:07:41 Fibromya lgia 405267248 Active 2024 RAPHAEL Jarrett [address], [address], [place], [address] , [employer] [facility] [employer] [facility] 5 12:48:40 Sore throat 864427389 Active 2024 Misty Morris RN [facility] [place] [employer] [facility] [employer] [facility] 5 12:35:22 Acute contact dermatit is 626123522 Active 2024 RAPHAEL Jarrett [address], [address], [place], [address] , [facility] [employer] [facility] [employer] [facility] 5 12:24:44 Stiff neck 423540203 Active 2024 RAPHAEL Jarrett [address], [address], [place], [address] , [employer] [facility] [employer] [facility] 5 12:30:56 Tonsilli tis 94023498 Active 2024 GERMAN Jarrett-C [address], [place], [address] , [employer] 12:31:42 Problem Notes None recorded. Procedures Surgical History Date Name Laterality Status Provider Name and Address Organization Details Recorded Time 08/23/20 Wound Care-Podiatry completed Sky Ridley RN [facility] 08/23/2023 14:47:15 08/16/20 Wound Care-Podiatry completed Maged Chatman DPM [address], [place], [address], [employer] 08/16/2023 13:06:34 06/29/20 23 Jc Bandage completed GERMAN Harmon [address] [employer], [place], [address], [facility] 06/29/2023 19:35:52 04/22/20 21 Shoulder completed Not Available [facility] 06:40:44 03/10/20 18 Laryngoscopy with biopsy completed Not Available [facility] 01/04/2023 06:40:44 03/02/20 16 Knee completed Not Available [facility] 06:40:44 Hernia repair w/mesh completed Not Available [facility] 01/04/2023 06:40:44 section completed Not Available [facility] 01/04/2023 06:40:44 Rotator cuff surgery completed Not Available [facility] 01/04/2023 06:40:44 exploratory laparotomy completed LAZARO Yeung [facility] 08/03/2023 11:31:16 Imaging Results None recorded. Procedure Notes None recorded. Medical Equipment None Reported. Allergies Allergen ID Allergen Name Allergen Category Reaction Reaction Severity Criticality Documentation Date Start Date Code Code System Note Provider Name and Address Organization Details Recorded Time 24631 No known allergy (situatio n) Not available Not available Not available Not available 06/22/2024 88010 6003 SNOMED Maribel Collins APRN [address], [place], [address] , [place] [facility] 4 13:46:02 No known drug allergies Medications Name Sig Start Date Stop Date Status Note LastModified by Organization Details LastModified Time celecoxib 200 mg capsule TAKE 1 CAPSULE BY MOUTH EVERY DAY 08/03 completed Not Available Not Available Not Available fluoxetin e 40 mg capsule TAKE 1 CAPSULE BY MOUTH EVERY DAY active Not Available Not Available No t Available cyclobenz aprine 10 mg tablet TAKE [...] completed Not Available Not Available Not Available methocarb yesi 500 mg tablet Take 1 tablet 3 times a day by oral route. active Not Available Not Available No t Available silver sulfadiaz ine 1 % topical [...] Available prednison e 10 mg tablet TAKE 1 TABLET BY MOUTH TWICE DAILY FOR 10 DAYS 04/03 completed Not Available Not Available Not Available venlafaxi ne ER 75 mg capsule,e xtended release 24 hr TAKE 1 CAPSULE DAILY 08/04 completed Not Available Not Available Not Available doxycycli ne hyclate 100 mg capsule TAKE 1 CAPSULE BY MOUTH TWICE DAILY 05/22 completed Not Available Not Available Not Available clindamyc in HCl 300 mg capsule TAKE 1 CAPSULE BY MOUTH THREE TIMES DAILY 04/03 completed Not Available Not Available Not Available trazodone 50 mg tablet TAKE 1 TO 2 TABLETS BY MOUTH AT BEDTIME NEEDED FOR INSOMNIA active Not Available Not Available No t Available azithromy iris 250 mg tablet 2 tabs po qd x 1 day then 1 tab po qd x 4 days active Not Available Not Available No t Available ibuprofen 800 mg tablet 08/04 completed Not Available Not Available Not Available tizanidin e 4 mg tablet TAKE 1 TABLET BY MOUTH 3 TIMES DAILY NEEDED FOR SPASM active Not [...] 1 TABLET BY MOUTH TWICE DAILY NEEDED 04/03 completed Not Available Not Available Not Available valacyclo vir 1 gram tablet Take 3 tablets every day by oral route. active Not [...] TAKE 2 TABLETS BY MOUTH EVERY DAY 04/03 completed Not Available Not Available Not Available methylpre dnisolone 4 mg tablet Take 1 tablet by oral route. active Not Available Not [...] omeprazol e 40 mg capsule,d elayed release TAKE 1 CAPSULE BY MOUTH EVERY DAY active Not Available Not Available No t Available tramadol 50 mg tablet Take 1 tablet every 6 hours by oral route. 12/17 completed Not Available Not Available Not Available amitripty line 50 mg tablet 03/24 completed Not Available Not Available Not Available triamcino lone acetonide 0.1 % topical cream APPLY A THIN LAYER TO THE AFFECTED AREA(S) BY TOPICAL ROUTE 2 TIMES PER DAY 2024 active Not Available Not Available Not Avai lable oxycodone 15 mg tablet TAKE 1 TABLET [...] TAKE 1 TABLET EVERY 12 HOURS FOR 10 DAYS 2024 active Not Available Not Available Not Avai lable potassium chloride ER 20 mEq tablet,ex tended release(p art/cryst ) TAKE 1 TABLET BY MOUTH TWICE DAILY 05/12 completed Not Available Not Available Not Available oxycodone -acetamin ophen 10 mg-325 mg tablet 10/20 completed Pain manageme nt Not Available Not Available Not Available Kenalog 10 mg/mL suspensio n for injection Take 40 mg by injectio n route. 12/12 completed [facility]: [id number] 4-20 Not Available Not Available Not Available amlodipin e 10 mg tablet TAKE 1 TABLET BY MOUTH EVERY DAY 05/12 completed Not Available Not Available Not Available doxycycli ne monohydra te 100 mg [...] TAKE 1 TABLET BY MOUTH EVERY DAY 05/12 completed Not Available Not Available Not Available gabapenti n 300 mg capsule TAKE 1 CAPSULE BY MOUTH TWICE A DAY active Not Available Not Available No [...] TAKE 1 CAPSULE BY MOUTH twice WEEKLY 2024 active Not Available Not Available Not Avai lable levofloxa iris 750 mg tablet TK ONE T PO D active Not Available Not Available No t Available albuterol sulfate HFA 90 mcg/actua tion aerosol inhaler TAKE 2 PUFFS BY MOUTH EVERY 4 HOURS [...] TAKE 1 TABLET BY MOUTH TWICE DAILY 04/03 completed Not Available Not Available Not Available losartan 100 mg tablet Take 1 tablet every day by oral route. active Not Available Not Available No t Available fluoxetin e 20 mg capsule TAKE 1 CAPSULE BY MOUTH EVERY DAY WITH FOOD 08/16 completed Not Available Not Available Not Available fluticaso ne propionat e 50 mcg/actua tion nasal spray,patricia pension INSTILL 1 SPRAY INTO EACH NOSTRIL EVERY DAY 2024 active Not Available Not Available Not Avai lable metformin ER 500 mg tablet,ex tended release 24 hr TAKE 2 TABLETS BY MOUTH EVERY DAY 04/03 completed Not Available Not Available Not Available doxycycli ne hyclate 100 mg tablet Take 1 tablet twice a day by oral route. active Not Available Not Available No t Available phentermi ne 37.5 mg capsule Take 1 capsule( s) EVERY DAY by oral route every a.m. active Not Available Not Available No t Available gentamici n 0.1 % topical ointment APPLY TO WOUND DAILY.CO AMAURY WITH GAUZE active Not Available Not Available No t [...] MOUTH EVERY 8 HOURS NEEDED FOR PAIN 04/03 completed Not Available Not Available Not Available bupropion HCl XL 300 mg 24 [...] e 60 mg capsule,d elayed release TAKE 1 CAPSULE BY MOUTH TWICE A DAY active Not Available Not Available No t Available hydrochlo rothiazid e 25mg 1 po q day 08/21 completed Not Available Not Available Not Available meloxicam (bulk) 02/28 completed Not Available Not Available Not Available lidocaine (PF) 10 mg/mL (1 %) injection solution In office injectio n administ ered by the provider 06/18 completed [facility]: [id number] 04-22 Not Available Not Available Not Available lidocaine [...] %) injection solution in office 12/12 completed [facility] [id number] 02-04 Not Available Not Available Not Available esomepraz ole strontium 49.3 mg capsule,d elayed release Take 1 capsule every day by oral route. 09/10 completed Not Available Not Available Not Available potassium chloride ER 20 mEq tablet,ex tended release Take 1 tablet twice a day by oral route. 05/12 completed Not Available Not Available Not Available Trulicity 1.5 mg/0.5 mL subcutane ous pen injector ADMINIST ER 1.5 MG UNDER THE SKIN EVERY WEEK active Not Available Not Available No t Available Trulicity 0.75 mg/0.5 mL subcutane ous pen injector INJECT 0.5 ML SUBCUTAN EOUSLY ONE TIME PER WEEK DIRECTED FOR 28 DAYS active Not Available Not Available No t Available Rexulti 1 mg tablet Take 1 tablet every day by oral route. 08/03 completed Not Available Not Available Not Available Rexulti 0.5 mg tablet Take 1 tablet every day by oral route. 04/18 completed Not Available Not Available Not Available [facility] COVID-19 Antigen Rapid Home Test kit USE NEEDED 04/03 completed Not Available Not Available Not Available Vitals Date Recorded Body height Body mass index (BMI) Body weight Body temperature Heart rate Oxygen saturation Oxygen saturation in Arterial blood by Pulse oximetry Systolic And Diastolic Provider Name and Address Organization Details Last Updated DateTime 180.34 cm 39.1 kg/m2 714588. 86 g 97.8 [degF] 90 /min 95 % 95 % 166/90 mm[Hg] LAZARO Gutierrez [place] [employer] 5 10:19:12 Date Recorded Body height Body mass index (BMI) Body weight Body temperature Heart rate Oxygen saturation Oxygen saturation in Arterial blood by Pulse oximetry Systolic And Diastolic Provider Name and Address Organization Details Last Updated DateTime 5 180.34 cm 39.1 kg/m2 361116. 86 g 97.7 [degF] 124 /min 95 % 95 % 140/82 mm[Hg] Saurabh Mulligan Landy [facility] [employer] [facility] 5 16:04:27 Date Recorded Body height Body mass index (BMI) Body weight Body temperature Heart rate Oxygen saturation Oxygen saturation in Arterial blood by Pulse oximetry Systolic And Diastolic Provider Name and Address Organization Details Last Updated DateTime 5 180.34 cm 38.1 kg/m2 489523. 72 g 97.1 [degF] 126 /min 96 % 96 % 180/98 mm[Hg] Saurabh Mulligan Landy [facility] [employer] [facility] 5 12:12:43 Date Recorded Body height Body mass index (BMI) Body weight Body temperature Heart rate Oxygen saturation Oxygen saturation in Arterial blood by Pulse oximetry Systolic And Diastolic Provider Name and Address Organization Details Last Updated DateTime 4 180.34 cm 37.8 kg/m2 623530. 53 g 97 [degF] 116 /min 98 % 98 % 190/110 mm[Hg] Juliette Payne RN [facility] [employer] [facility] 4 16:40:13 Social History Question Answer Notes LastModified by Organizat ion Details LastModified Time Tobacco Smoking Status Former Smoker 10/2013 Kelly ponce [facility] [employer] [facility] 04/18/2023 08:02:31 Do You Wear A Helmet When Biking? Yes [email or web address] Information not available 04/18/2023 What Is Your Level Of Caffeine Consumption? None [id number] Information not available 01/04/2023 How Much Tobacco Do You Chew? None [id number] Information not available 01/04/2023 In The 14 Days Before Symptom Onset, Have You Had Close Contact With A Laboratory-kristeni rmed COVID-19 While That Case Was Ill? No [email or web address] Information not available 04/18/2023 In The 14 Days Before Symptom Onset, Have You Had Close Contact With A Person Who Is Under Investigation For COVID-19 While That Person Was Ill? No [email or web address] Information not available 04/18/2023 What Type Of Diet Are You Following? VEGETARIAN [id number] Information not available 01/04/2023 Which Illicit Or Recreational Drugs Have You Used? NO Information not available 04/18/2023 Do You Use Insect Repellent Routinely? No Information not available 04/03/2025 Where Do You Live? [facility] Information not available 04/03/2025 Are You Following A Low Salt Diet? No [email or web address] Information not available 04/18/2023 What Was The Date Of Your Most Recent Tobacco Screening? 02/02/2021 [email or web address] Information not available 04/18/2023 How Many Children Do You Have? 2 Information not available 04/03/2025 Do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
--- OUTSIDE RECORDS SUMMARY | 2025-05-22 13:52 | XMS_ITS | Continuity of Care Document ---
Author Organization [place] - [facility] [place] Address [address] [place] [address] Care Team Providers Care Sour Bleaching Pleater Name Role Phone MASON CHIN Primary Care Provider MASON CHIN Referring Provider [phone] Assessment No assessment recorded. Plan of Treatment Reminders Order Date Submit Date Provider Last Modified By Organization Details Last Modified Time Details Appointments Sick/Acut e 2024 11:00A Janice Mathur NP Not available Not available Not available Follow Up 15 2024 09:45A Janice Mathur NP Not available Not available Not available Lab None recorded. Referral None recorded. Procedures None recorded. Surgeries None recorded. Imaging XR, cervical spine, 2 or 3 view 2024 025 [facility]), [address] [place], [address], 05/22/2025 13:50:04 Medication Orders triamcino lone acetonide 0.1 % topical cream 2024 025 [facility] #[id number], [address], [place], [address], 05/22/2025 12:33:41 amoxicill in 875 mg tablet 2024 025 [facility] #[id number], [address], [place], [address], 05/22/2025 12:33:41 Patient TargetsNo targets recorded. Patient InstructionsNo instructions recorded. Reason for Referral None Reported. Problems Name Problem SNOMED Code Status Onset Date Resolution Date Notes Provider Name and Address Organization Details Recorded Time Irritabl e bowel syndrome 86362347 Active Not Available [facility] 4 01:34:26 Disorder of shoulder 539494309 Active Not Available [facility] 4 01:34:26 Cellulit is 538565019 Completed Not Available [facility] 3 06:43:55 Backache 763292767 Active Not Available [facility] 4 01:34:27 Insomnia 926167480 Active Not Available [facility] 4 01:34:27 Menopaus al flushing 231228592 Active Not Available [facility] 4 01:34:27 Cellulit is and abscess of upper arm 777388672 Completed Not Available [facility] 3 06:43:56 Full thicknes s rotator cuff tear 720559130 Active lt shouder Not Available [facility] 4 01:34:27 Edema 891384456 Active Not Available [facility] 4 01:34:27 Mass of axilla 023586512 Active Not Available [facility] 4 01:34:27 Knee pain Active Not Available [facility] 4 01:34:27 Vitamin D deficien cy 91098415 Active Not Available [facility] 4 01:34:27 Depressi ve disorder 69423351 Active Not Available [facility] 4 01:34:27 Seasonal allergic rhinitis 250890460 Active Not Available [facility] 4 01:34:27 Migraine 12800362 Active Not Available [facility] 4 01:34:27 Menorrha mukul 038681905 Active Not Available [facility] 4 01:34:27 Adhesive capsulit is of shoulder 163812555 Active Not Available [facility] 4 01:34:27 Obesity 631492605 Active Not Available [facility] 4 01:34:27 Foot pain 98271485 Active Not Available [facility] 4 01:34:27 Dysuria 85994713 Active Not Available [facility] 4 01:34:27 Cough 64988060 Active Not Available [facility] 4 01:34:27 Hyperlip idemia 90422906 Active Not Available [facility] 4 01:34:27 Fatigue 42805333 Active Not Available [facility] 4 01:34:27 Chronic rhinitis 78218797 Active Not Available [facility] 4 01:34:28 Weight gain 2017470 Active Not Available [facility] 4 01:34:28 Primary fibromya lgia syndrome 83081377 Active Not Available [facility] 4 01:34:28 Arthriti s of left knee 84816044108 39326 Active 2019 Not Available [facility] 4 01:34:26 Current tear of medial cartilag e AND/OR meniscus of knee Active 2019 Not Available [facility] 4 01:34:27 Morbid obesity 201557361 Active 2019 Not Available [facility] 4 01:34:27 Injury of foot 799935843 Active 2020 Not Available [facility] 4 01:34:26 Dysfunct ion of posterio r tibial tendon of left foot 86156870123 66202 Active 2020 Not Available [facility] 4 01:34:26 Soft tissue lesion of foot region 264655841 Active 2020 Not Available [facility] 4 01:34:27 Tendinit is of left posterio r tibial tendon 40775581536 9100 Active 2020 Not Available [facility] 4 01:34:27 Tinea pedis 2553406 Active 2020 Not Available [facility] 4 01:34:27 Postoper ative visit 807841234 Active 2021 Not Available [facility] 4 01:34:27 Iron deficien cy 05897071 Active 2021 Not Available [facility] 4 01:34:27 Tear of medial meniscus of knee 555202056 Active 2021 Not Available [facility] 4 01:34:27 Pain of right knee joint 72207031135 4100 Active 2021 Not Available [facility] 4 01:34:27 Pain of left knee joint 23280467801 4107 Active 2021 Not Available [facility] 4 01:34:27 Pain of left shoulder joint 23872557155 562637 Active 2021 Not Available [facility] 4 01:34:26 Pain in left foot 34484463701 9107 Active 2021 Not Available [facility] 4 01:34:27 Pain in right foot 22698610347 9107 Active 2021 Not Available [facility] 4 01:34:27 Tear of medial meniscus of knee 008485806 Active 2021 Not Available [facility] 4 01:34:27 Pain of bilatera l knee joints 41992137970 4104 Active 2021 Not Available [facility] 4 01:34:27 Bilatera l shoulder joint pain 43953905376 853995 Active 2021 Not Available [facility] 4 01:34:26 Cellulit is of toe of right foot 56291677372 501958 Active 2021 Not Available [facility] 4 01:34:26 Idiopath ic peripher al neuropat hy 04318576 Active 2021 Not Available [facility] 4 01:34:27 Ulcer of big toe 383849985 Active 2021 Not Available [facility] 4 01:34:27 Puncture wound of great toe 467295825 Active 2021 Not Available [facility] 4 01:34:27 Hypothyr oidism 82290626 Active 2022 Not Available [facility] 4 01:34:27 Anxiety 80750290 Active 2022 RAPHAEL Jarrett [address] [facility], [place], [address] , [place] [facility] 5 10:39:27 Amenorrh ea 11053844 Active 2022 Not Available [facility] 4 01:34:26 Bursitis of olecrano n of right elbow 80099304547 9108 Active 2022 Not Available [facility] 4 01:34:27 Thromboc ytosis 6097293 Active 2022 Not Available [facility] 4 01:34:27 Hypergly cemia 91914794 Active 2022 Not Available [facility] 4 01:34:27 Essentia l hyperten patricio 37552150 Active 2022 Not Available [facility] 4 01:34:27 Impairme nt of balance 991662383 Active 2022 Not Available [facility] 4 01:34:27 Magnetic resonanc e imaging of brain abnormal 400761422 Active 2022 Not Available [facility] 4 01:34:27 Localize d enlarged lymph nodes 688595128 Active 2022 Not Available [facility] 4 01:34:27 Open wound of left foot 44748202808 330347 Active 2022 Not Available [facility] 4 01:34:26 Pain of joint of ankle and/or foot 767379755 Active 2022 Not Available [facility] 4 01:34:27 Pain of left hand 19499482209 9103 Active 2022 Not Available [facility] 4 01:34:27 Bilatera l osteoart hritis of knees 55865863779 9107 Active 2022 Not Available [facility] 4 01:34:26 Open wound of left great toe 29596806063 939436 Active 2022 Not Available [facility] 4 01:34:26 Foot callus 062553313 Active 2022 Not Available [facility] 4 01:34:27 Pain of right hip joint 25139354821 9102 Active 2022 Not Available [facility] 4 01:34:27 Trochant felice bursitis of right hip 67966033853 9100 Active 2023 Not Available [facility] 4 01:34:27 Heartbur n 02549815 Active 2023 Mason Chin MD [address], [address], [place], [address] , [employer] [facility] 4 11:01:27 Pain of multiple joints 68635392 Active 2023 Mason Chin MD [address], [address], [place], [address] , [employer] [facility] 4 16:56:18 Type 2 diabetes mellitus 14092743 Active 2023 Mason Chin MD [address], [address], [place], [address] , [employer] [facility] 4 12:22:56 Iron deficien cy anemia 92324273 Active 2023 Mason Chin MD [address], [address], [place], [address] , [employer] [facility] 4 12:24:40 Neck pain 83490385 Active 2023 RAPHAEL Jarrett [address], [address], [place], [address] , [employer] [facility] 5 12:17:39 Thoracic back pain 797286506 Active 2023 Mason Chin MD [address], [place], [address] , [employer] [facility] 4 12:50:30 Postmeno pausal bleeding 72215231 Active 2023 Mason Chin MD [address], [address], [place], [address] , [employer] [facility] 4 10:59:06 Erythroc yte sediment ation rate above referenc e range 649964177 Active 2023 Mason Chin MD [address], [address] [address], [place], [address] , [facility] [employer] [facility] 4 11:10:14 Neuropat hy 672314055 Active 2023 Mason Chin MD [address], [address] [address], [place], [address] , [facility] [employer] [facility] 4 11:11:04 Hypokale earl 45355267 Active 2023 Mason Chin MD [address], [address], [address] , [facility] [employer] [facility] 4 13:24:05 Anti-nuc lear factor detected 720330203 Active 2023 Mason Chin MD [address], [address], [address] , [employer] [facility] 4 11:01:57 Infectio n of foot 330581675 Active 2023 RAPHAEL Arnold [address], [address], [address] , [facility] [employer] [facility] 4 16:58:35 Primary insomnia 5514332 Active 2024 RAPHAEL Jarrett [address], [address], [address] , [facility] [employer] [facility] 5 10:39:58 Allergic rhinitis 16475817 Active 2024 RAPHAEL Jarrett [address], [address], [address] , [facility] [employer] [facility] 5 23:07:23 Gastroes ophageal reflux disease without esophagi tis 404210993 Active 2024 RAPHAEL Jarrett [address], [address], [address] , [employer] [facility] [employer] 23:07:29 Body mass index 30+ - obesity 784320840 Active 2024 RAPHAEL Jarrett [address], [address], [place], [address] , [facility] [employer] [facility] [employer] 5 23:07:41 Fibromya lgia 912138693 Active 2024 RAPHAEL Jarrett [address], [address], [place], [address] , [facility] [employer] [facility] [employer] 12:48:40 Sore throat 330769968 Active 2024 Misty Morris RN [facility], [employer] [facility] [employer] 12:35:22 Acute contact dermatit is 851408708 Active 2024 RAPHAEL Jarrett [address], [address], [place], [address] , [facility] [employer] [facility] [employer] 12:24:44 Stiff neck 478126319 Active 2024 RAPHAEL Jarrett [address], [address], [place], [address] , [employer] [facility] [employer] 12:30:56 Tonsilli tis 59706664 Active 2024 RAPHAEL Jarrett [address], [address], [place], [address] , [facility] [employer] [facility] [employer] 12:31:42 Problem Notes None recorded. Procedures Surgical History Date Name Laterality Status Provider Name and Address Organization Details Recorded Time 08/23/20 Wound Care-Podiatry completed Sky Ridley RN [place] [employer] [facility] [employer] [facility] 08/23/2023 14:47:15 08/16/20 23 Wound Care-Podiatry completed Maged Chatman DPM [address], [address], [place], [address], [facility] [employer] [facility] [employer] 08/16/2023 13:06:34 06/29/20 23 Jc Bandage completed GERMAN Harmon [address] [facility], [address], [place], [address], [facility] [employer] [facility] 06/29/2023 19:35:52 04/22/20 21 Shoulder completed Not Available [facility] 3 06:40:44 03/10/20 18 Laryngoscopy with biopsy completed Not Available [facility] 01/04/2023 06:40:44 03/02/20 16 Knee completed Not Available [facility] 3 06:40:44 Hernia repair w/mesh completed Not Available [facility] 01/04/2023 06:40:44 section completed Not Available [facility] 01/04/2023 06:40:44 Rotator cuff surgery completed Not Available [facility] 01/04/2023 06:40:44 exploratory laparotomy completed LAZARO Yeung [facility] [employer] [facility] 08/03/2023 11:31:16 Imaging Results None recorded. Procedure Notes None recorded. Medical Equipment None Reported. Allergies Allergen ID Allergen Name Allergen Category Reaction Reaction Severity Criticality Documentation Date Start Date Code Code System Note Provider Name and Address Organization Details Recorded Time 39112 No known allergy (situatio n) Not available Not available Not available Not available 06/22/2024 64270 6003 SNOMED Maribel Collins APRN [address] [facility], [facility] [address], [place], [address], [facility] [employer] [facility] 4 13:46:02 No known drug allergies Medications [...] mg by injectio n route. 12/12 completed [facility]: 0003-049 4-20 Not Available Not Available Not [...] administ ered by the provider 06/18 completed [facility]: 0409-427 04-22 Not Available Not Available Not [...] %) injection solution in office 12/12 completed [facility] [address]34-90 4 Not Available Not Available Not Available esomepraz [...] completed Not Available Not Available Not Available [facility] COVID-19 Antigen Rapid Home Test kit USE NEEDED 04/03 completed Not Available Not Available Not Available Vitals Date Recorded Body height Body mass index (BMI) Body weight Body temperature Heart rate Oxygen saturation Oxygen saturation in Arterial blood by Pulse oximetry Systolic And Diastolic Provider Name and Address Organization Details Last Updated DateTime 5 180.34 cm 38.1 kg/m2 791967. 72 g 97.1 [degF] 126 /min 96 % 96 % 180/98 mm[Hg] LAZARO Gutierrez [facility] 12:12:43 Social History Question Answer Notes LastModified by Organizat ion Details LastModified Time Tobacco Smoking Status Former Smoker 10/2013 Kelly ponce [facility] 04/18/2023 08:02:31 Do You Wear A Helmet When Biking? Yes [email or web address] Information not available 04/18/2023 What Is Your Level Of Caffeine Consumption? None [id number] Information not available 01/04/2023 How Much Tobacco Do You Chew? None [id number] Information not available 01/04/2023 In The 14 Days Before Symptom Onset, Have You Had Close Contact With A [facility] COVID-19 While That Case Was Ill? No [email or web address] Information not available 04/18/2023 In The 14 Days Before Symptom Onset, Have You Had Close Contact With A Person Who Is Under Investigation For COVID-19 While That Person Was Ill? No Information not available 04/18/2023 What Type Of Diet Are You Following? VEGETARIAN [id number] Information not available 01/04/2023 Which Illicit Or Recreational Drugs Have You Used? NO [email or web address] Information not available 04/18/2023 Do You Use Insect Repellent Routinely? No Information not available 04/03/2025 Where Do You Live? [facility] Information not available 04/03/2025 Are You Following A Low Salt Diet? No Information not available 04/18/2023 What Was The Date Of Your Most Recent Tobacco Screening? 02/02/2021 Information not available 04/18/2023 How Many Children Do You Have? 2 Information not available 04/03/2025 Do You Have Any Pets? Yes Information not available 04/03/2025 What Is Your Relationship Status? Information not available 04/03/2025 Do You Use Your Seat Belt Or Car Seat Routinely? Yes [email or web address] Information not available 04/18/2023 Do You Have Smoke And Carbon Monoxide Detectors In Your Home? Yes Information not available 04/03/2025 Are There Any Smokers In Your House? No Information not available 04/03/2025 Do You Participate In Social Media? No [email or web address] Information not available 04/18/2023 Do You Use Sunscreen Routinely? No Information not available 04/03/2025 Have You Recently Traveled Abroad? No Information not available 04/03/2025 Do You Have Any Dietary Restrictions? Yes [email or web address] Information not available 04/18/2023 Sex: Unknown Functional Status Question Answer Note LastModified by Organizat ion Details LastModified Time What is your level of alcohol consumption? None [id number] Information not available 01/04/2023 Do you or have you ever used smokeless tobacco? Never used smokeless tobacco MIGRATION.[id number] 026 Information not available 01/04/2023 Are you currently employed? 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 Never used electronic cigarettes Information not available 04/18/2023 What is your exercise level? None [id number] 026 Information not available 01/04/2023 Mental Status Question Answer Note LastModified by Organization D etails LastModified Time Do you feel stressed (tense, restless, nervous, or anxious, or unable to sleep at night)? [id number] Information not available 04/18/2023 Family History Relationship Description Onset Age of this Age Resolved Age Notes LastModified by Organization Details LastModified Time Maternal Grandmother Diabetes mellitus [id number] [id number] Not available 01/04/2023 06:40:45 Maternal Grandmother Arthritis [email or web address] Not available 08:02:27 Maternal Grandfather Diabetes mellitus MIGRATION.621 [id number] Not available 01/04/2023 06:40:45 Maternal Grandfather Arthritis [email or web address] Not available 08:02:27 Father Diabetes mellitus MIGRATION.414 [id number] Not available 01/04/2023 06:40:45 Father Arthritis [email or web address] Not availabl e 04/18/2023 08:02:27 Mother Diabetes mellitus MIGRATION.929 [id number] Not available 01/04/2023 06:40:45 Mother Arthritis [email or web address] Not availabl e 04/18/2023 08:02:27 Paternal Grandfather Diabetes mellitus MIGRATION.711 [id number] Not available 01/04/2023 06:40:45 Paternal Grandfather Arthritis [email or web address] Not available 08:02:27 Paternal Grandmother Diabetes mellitus MIGRATION.966 [id number] Not available 01/04/2023 06:40:45 Paternal Grandmother Arthritis Not available 08:02:27 Notes:No breast cancer Mom d ied age 47 (COPD/substance abuse) Maternal Grandmother 48 (super morbid obesity) Medical History Condition Response BLINDNESS N KIDNEY STONES N CARPAL TUNNEL SYNDROME N MRSA N LUNG DISEASE/DISORDER N HISTORY OF DRUG ABUSE N RADIATION / CHEMOTHERAPY N COPD N ANKLE PAIN N SPORTS INJURY N BLOOD DISEASES N SCHIZOPHRENIA N SHINGLES N DEPRESSION (INCLUDING POST ) N SHOULDER PAIN N BOWEL PROBLEMS N FAILED BACK SYNDROME N STROKE/TIA N THYROID DISEASE Y LYMPHEDEMA N KNEE PAIN N ULCERS N BENIGN PROSTATIC HYPERPLASIA N TB SKIN [...] AIDS/HIV N FRACTURES N LIVER DISEASE N ELBOW PAIN N HYPERTENSION N TOURETTE'S N ANXIETY DISORDER N Metal allergy N BLOOD TRANSFUSION N ANEMIA/BLOOD DISORDER Y BIPOLAR DISORDER N BRONCHITIS N OSTEOARTHRITIS N TUBERCULOSIS N FOOT PROBLEM N HEART VALVE DISORDERS N ALLERGIES/HAYFEVER N SOFT TISSUE INJURY N BACK INJECTIONS N INFECTIOUS DISEASE N HEART ARRHYTHMIA N INSOMNIA N ESRD N HIGH CHOLESTEROL / HYPERLIPIDEMIA N RHEUMATOID ARTHRITIS N PVD N EDEMA N CHRONIC PAIN SYNDROME N CAROTID BLOCKAGE N BACK / NECK PROBLEMS N HAVE YOU BEEN HOSPITALIZED OR SEEN IN [facility] IN THE PAST YEAR ? N [...] ALZHEIMER'S DISEASE N PAIN N HERPES N HEADACHES/MIGRAINES N SEIZURES/EPILEPSY N VASCULAR DISEASE N Blood Disorder N HIP PAIN N DIZZINESS N HEAD TRAUMA OR INJURY N HEART DISEASE/HEART PROBLEMS N KIDNEY DISEASE N MULTIPLE SCLEROSIS N MENTAL DISORDER/ILLNESS N [...] Recorded Time Tdap 12/21/2022 completed Not Available [facility] 12/07/2023 01:34:30 Influenza, split virus, quadrivalent, PF 09/20/2017 completed Not Available [facility] 4 01:34:30 Influenza, split virus, quadrivalent, PF 07/30/2018 completed Not Available [facility] 4 01:34:30 Influenza, split virus, quadrivalent, PF 10/20/2015 completed Not Available [facility] 01:34:30 Past Encounters Encounter ID Performer Location Encounter Start Date Encounter Closed Date Diagnosis/Indication Diagnosis SNOMED-CT Code Diagnosis ICD10 Code Diagnosis Note [id number] RAPHAEL Jarrett [facility] [address] [facility] [address] [place] [address] 05/12/2025 15:43:56 05/12/2025 16:35:38 Cancer cervix screening status 789016832 Z12.4 Patient tolerated well. [id number] RAPHAEL Jarrett [facility] [place] [address] [facility] [address] [place] [address] 05/21/2025 12:23:43 05/21/2025 12:34:36 [id number] RAPHAEL Jarrett [facility] Primary Care [facility] [place] [address] [facility] [address] [place] [address] 05/22/2025 11:58:24 05/22/2025 12:38:06 Neck pain 52404675 M54.2 Will order repeat imaging as listed below. Acute cont act dermatitis 115157741 L25.9 Tonsillitis 43481353 J03 .90 Patient had negative strep test yesterday. Health Concerns Section Related Observation LastModified by Organization Detai ls LastModified Time None Recorded Concern Status LastModified by Organization Details LastModified Time None Recorded Payers Encounter Date Sequence Insurance Name Policy Number Policy Herrera Covered Member ID Herrera Member ID Guarantor Name 05/22/2025 1 [facility] ON OR AFTER 05/06/21 (MEDICAID REPLACEMENT - HMO) Prachi Benton [id number] Prachi Benton Notes Date Note Type Note Provider Name and Address Organization Details Recorded Time 05/22/2025 text/html Patient is a 44 year old female that presents to the office for acute visit. Patient reports neck pain that radiates to bilateral shoulders. Patient also reports rash to left side of chest. Patient reports sore throat, body aches, fatigue, nausea and diarrhea. Patient denies chest pain and shortness of breath. Patient went to [facility] and was diagnosed with shingles and muscle pain yesterday, treated with MDP, Methocarbamol and Valtrex. Patient reports symptoms have not improved. Mallorie Mathur, POOL TABLE OPERATOR-C [address] [address], [place], [address], [place] [facility] 05/22/2025 14:00:33 OBGyn Episode No OBEpisode recorded.
--- OUTSIDE RECORDS SUMMARY | 2025-05-22 13:52 | XMS_ITS | Clinical Summary ---
Author Organization [facility] Citlalli casillas [facility] Address [address] [facility] [place] [address] Care Team Providers Care Access Director Name Role Phone Ashanti Chin MD Primary [...] 04/12/2022 Active fluticasone propionate (FLONASE) 50 mcg/spray [place], Suspension nasal inhaler 05/24/2022 Activ e gabapentin [...] 11:59 AM CDT Height 180.3 cm (5' 11) 07/28/2022 11:59 AM CDT Body Mass Index [...] Q 5 years 2023 INFLUENZA VACCINE (#1) 2025 8, 09/20/2017, 10/20/2015 HPV VACCINES Aged Out No longer eligi ble based on patient's age to complete this topic Insurance Care Teams Access Director Relationship Specialty Start Date End Date Ashanti Chin MD [address] [place] [address] [place] [address] PCP - General Family Practice 06/01/22
--- OUTSIDE RECORDS SUMMARY | 2025-05-22 13:52 | XMS_ITS | Clinical Summary ---
Author Organization [facility] Address [address] [facility] [place] [address] Care Team Providers Care Venetian Blind Installer Name Role Phone Ashanti Chin MD Primary Care Provider [phone] Source Comments [facility],non-owned Affiliates and Associated Physician Practices is amultiple site organization consisting of ambulatory clinics and hospital sitesin [place], [place], [place] and [place]. This disclosure is being madepursuant to the Care Everywhere program and may not contain all information available regarding this patient. Last updated 18.[facility] Allergies No known active allergies Medications * Be aware that medications may not be up to date on this document. Alwaysverify current medications with the patient. 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 Gender Identity Not on file Sexual Orientation [...] 1:59 PM CDT Height 177.8 cm (5' 10) 01/17/2022 1:59 PM CDT Body Mass Index [...] SCREENING 1978 LIPID TESTING 1978 MAMMOGRAM 1978 HIV SCREENING 1993 HEPATITIS C SCREENING 07/04/1996 DTAP/TDAP/TD VACCINES (1 - Tdap) 1997 HEPATITIS B VACCINE (1 of 3 - 19+ 3-dose series) 1997 PAP SMEAR 1999 SCREENING FOR DIABETES 01/17/2022 COVID-19 VACCINE (1 - 2023-2 5 season) 2024 DEPRESSION SCREENING 11/06/2024 INFLUENZA VACCINE (#1) 2025 8, 09/20/2017, 10/20/2015 ZOSTER VACCINE (1 of 2) [...] patient's age to complete this topic Insurance [facility] [place] [address] [address] [place] [address] Care Teams Venetian Blind Installer Relationship Specialty Start Date End Date Ashanti Chin MD [address] [place] [id number] PCP - General Family Medicine 01/17/22
--- OUTSIDE RECORDS SUMMARY | 2025-05-22 13:52 | XMS_ITS | Clinical Summary ---
Author Organization [facility] Address [address] [place] [address] Care Team Providers Care Bookkeeper Assistant Name Role Phone Unavailable Primary Care Provider [...]
--- OUTSIDE RECORDS SUMMARY | 2025-05-22 13:53 | XMS_ITS | Continuity of Care Document ---
Author Organization [place] - [facility], [facility] Address [address] [place] [address] Care Team Providers Care Veterinary Poultry Inspector Name Role Phone MASON CHIN Primary Care Provider MASON CHIN Referring Provider Assessment No assessment recorded. Plan of Treatment Reminders Order Date Submit Date Provider Last Modified By Organization Details Last Modified Time Details Appointments Sick/Acu te 2024 11:00A Janice Mathur NP Not available Not available Not available Follow Up 15 2024 09:45A Janice Mathur NP Not available Not available Not available Lab None recorded . Referral None recorded . Procedures None recorded . Surgeries None recorded . Imaging None recorded . Medication Orders None recorded . Patient TargetsNo targets recorded. Patient InstructionsNo instructions recorded. Reason for Referral None Reported. Problems Name Problem SNOMED Code Status Onset Date Resolution Date Notes Provider Name and Address Organization Details Recorded Time Irritabl e bowel syndrome 08606343 Active Not Available [facility] 4 01:34:26 Disorder of shoulder 894403024 Active Not Available [facility] 4 01:34:26 Cellulit is 217980258 Completed Not Available [facility] 3 06:43:55 Backache 939868994 Active Not Available [facility] 4 01:34:27 Insomnia 865823579 Active Not Available [facility] 4 01:34:27 Menopaus al flushing 095485803 Active Not Available [facility] 4 01:34:27 Cellulit is and abscess of upper arm 467600987 Completed Not Available [facility] 3 06:43:56 Full thicknes s rotator cuff tear 251416348 Active lt shouder Not Available [facility] 4 01:34:27 Edema 568760649 Active Not Available [facility] 4 01:34:27 Mass of axilla 536092864 Active Not Available [facility] 4 01:34:27 Knee pain Active Not Available [facility] 4 01:34:27 Vitamin D deficien cy 60280605 Active Not Available [facility] 4 01:34:27 Depressi ve disorder 41146417 Active Not Available [facility] 4 01:34:27 Seasonal allergic rhinitis 095609117 Active Not Available [facility] 4 01:34:27 Migraine 63527491 Active Not Available [facility] 4 01:34:27 Menorrha mukul 244335527 Active Not Available [facility] 4 01:34:27 Adhesive capsulit is of shoulder 762205030 Active Not Available [facility] 4 01:34:27 Obesity 432170372 Active Not Available [facility] 4 01:34:27 Foot pain 78237003 Active Not Available [facility] 4 01:34:27 Dysuria 29584635 Active Not Available [facility] 4 01:34:27 Cough 05911325 Active Not Available [facility] 4 01:34:27 Hyperlip idemia 67205609 Active Not Available [facility] 4 01:34:27 Fatigue 06265655 Active Not Available [facility] 4 01:34:27 Chronic rhinitis 39674217 Active Not Available [facility] 4 01:34:28 Weight gain 7456968 Active Not Available [facility] 4 01:34:28 Primary fibromya lgia syndrome 44155863 Active Not Available [facility] 4 01:34:28 Arthriti s of left knee 57501532362 04001 Active 2019 Not Available [facility] 4 01:34:26 Current tear of medial cartilag e AND/OR meniscus of knee Active 2019 Not Available [facility] 4 01:34:27 Morbid obesity 670709864 Active 2019 Not Available [facility] 4 01:34:27 Injury of foot 863808564 Active 2020 Not Available [facility] 4 01:34:26 Dysfunct ion of posterio r tibial tendon of left foot 19174183889 69991 Active 2020 Not Available [facility] 4 01:34:26 Soft tissue lesion of foot region 315306530 Active 2020 Not Available [facility] 4 01:34:27 Tendinit is of left posterio r tibial tendon 65600780381 9100 Active 2020 Not Available [facility] 4 01:34:27 Tinea pedis 8724082 Active 2020 Not Available [facility] 4 01:34:27 Postoper ative visit 965542323 Active 2021 Not Available [facility] 4 01:34:27 Iron deficien cy 17631374 Active 2021 Not Available [facility] 4 01:34:27 Tear of medial meniscus of knee 230743284 Active 2021 Not Available [facility] 4 01:34:27 Pain of right knee joint 83296585899 4100 Active 2021 Not Available [facility] 4 01:34:27 Pain of left knee joint 83108546044 4107 Active 2021 Not Available [facility] 4 01:34:27 Pain of left shoulder joint 48566690519 562335 Active 2021 Not Available [facility] 4 01:34:26 Pain in left foot 98491087594 9107 Active 2021 Not Available [facility] 4 01:34:27 Pain in right foot 50387324521 9107 Active 2021 Not Available [facility] 4 01:34:27 Tear of medial meniscus of knee 673976381 Active 2021 Not Available [facility] 4 01:34:27 Pain of bilatera l knee joints 29850202922 4104 Active 2021 Not Available [facility] 4 01:34:27 Bilatera l shoulder joint pain 22902345970 297086 Active 2021 Not Available [facility] 4 01:34:26 Cellulit is of toe of right foot 06027935779 321301 Active 2021 Not Available [facility] 4 01:34:26 Idiopath ic peripher al neuropat hy 45080650 Active 2021 Not Available [facility] 4 01:34:27 Ulcer of big toe 634743403 Active 2021 Not Available [facility] 4 01:34:27 Puncture wound of great toe 609890559 Active 2021 Not Available [facility] 4 01:34:27 Hypothyr oidism 51210251 Active 2022 Not Available [facility] 4 01:34:27 Anxiety 43842082 Active 2022 Mallorie Mathur, FIELD CREW CHIEF-C [address] [facility] [facility], [place] [address], [place], [address] , [facility] 5 10:39:27 Amenorrh ea 98664490 Active 2022 Not Available [facility] 4 01:34:26 Bursitis of olecrano n of right elbow 34843133015 9108 Active 2022 Not Available [facility] 4 01:34:27 Thromboc ytosis 5819684 Active 2022 Not Available [facility] 4 01:34:27 Hypergly cemia 77602902 Active 2022 Not Available [facility] 4 01:34:27 Essentia l hyperten patricio 14025661 Active 2022 Not Available [facility] 4 01:34:27 Impairme nt of balance 855157303 Active 2022 Not Available [facility] 4 01:34:27 Magnetic resonanc e imaging of brain abnormal 172968131 Active 2022 Not Available [facility] 4 01:34:27 Localize d enlarged lymph nodes 100088202 Active 2022 Not Available [facility] 4 01:34:27 Open wound of left foot 38933799185 152243 Active 2022 Not Available [facility] 4 01:34:26 Pain of joint of ankle and/or foot 880698976 Active 2022 Not Available [facility] 4 01:34:27 Pain of left hand 75140778862 9103 Active 2022 Not Available [facility] 4 01:34:27 Bilatera l osteoart hritis of knees 98027413643 9107 Active 2022 Not Available [facility] 4 01:34:26 Open wound of left great toe 68941667682 767273 Active 2022 Not Available [facility] 4 01:34:26 Foot callus 331541786 Active 2022 Not Available [facility] 4 01:34:27 Pain of right hip joint 63081584539 9102 Active 2022 Not Available [facility] 4 01:34:27 Trochant felice bursitis of right hip 77662077221 9100 Active 2023 Not Available [facility] 4 01:34:27 Heartbur n 18547948 Active 2023 Mason Chin MD [address], [place], [address] , [facility] [employer] [facility] 4 11:01:27 Pain of multiple joints 91987859 Active 2023 Mason Chin MD [address], [address], [place], [address] , [facility] [employer] [facility] 4 16:56:18 Type 2 diabetes mellitus 24005647 Active 2023 Mason Chin MD [address], [place], [address] , [employer] 4 12:22:56 Iron deficien cy anemia 20774735 Active 2023 Mason Chin MD [address], [place], [address] , [employer] 4 12:24:40 Neck pain 36884828 Active 2023 RM JarrettP-C [address], [place], [address] , [employer] 5 12:17:39 Thoracic back pain 748692501 Active 2023 Mason Chin MD [address], [place], [address] , [employer] 4 12:50:30 Postmeno pausal bleeding 06939222 Active 2023 Mason Chin MD [address], [address], [place], [address] , [employer] 4 10:59:06 Erythroc yte sediment ation rate above referenc e range 539014720 Active 2023 Mason Chin MD [address], [address], [place], [address] , [employer] 4 11:10:14 Neuropat hy 927018358 Active 2023 Mason Chin MD [address], [place], [address] , [employer] 4 11:11:04 Hypokale earl 61666306 Active 2023 Mason Chin MD [address], [place], [address] , [employer] 4 13:24:05 Anti-nuc lear factor detected 406337269 Active 2023 Mason Chin MD [address], [address], [place], [address] , [employer] [facility] 4 11:01:57 Infectio n of foot 201326976 Active 2023 RAPHAEL Arnold [address], [place], [address] , [employer] 4 16:58:35 Primary insomnia 5644555 Active 2024 RAPHAEL Jarrett [address], [address], [place], [address] , [employer] 5 10:39:58 Allergic rhinitis 18266128 Active 2024 RAPHAEL Jarrett [address], [address], [place], [address] , [employer] 5 23:07:23 Gastroes ophageal reflux disease without esophagi tis 007976374 Active 2024 RAPHAEL Jarrett [address], [address], [place], [address] , [employer] [facility] 5 23:07:29 Body mass index 30+ - obesity 215884248 Active 2024 RAPHAEL Jarrett [address], [address], [place], [address] , [employer] [facility] 5 23:07:41 Fibromya lgia 918288497 Active 2024 RAPHAEL Jarrett [address], [place], [address] , [employer] [facility] 5 12:48:40 Sore throat 127679501 Active 2024 Misty Morris RN null, [employer] [facility] [employer] [facility] 5 12:35:22 Acute contact dermatit is 909732195 Active 2024 RAPHAEL Jarrett [address], [place], [address] , [employer] 12:24:44 Stiff neck 052232424 Active 2024 GERMAN Jarrett-Ava [address], [address], [place], [address] , [employer] 12:30:56 Tonsilli tis 88008845 Active 2024 GERMAN Jarrett-Ava [address], [place], [address] , [employer] 12:31:42 Problem Notes None recorded. Procedures Surgical History Date Name Laterality Status Provider Name and Address Organization Details Recorded Time 08/23/20 23 Wound Care-Podiatry completed Sky Ridley RN [employer] 08/23/2023 14:47:15 08/16/20 23 Wound Care-Podiatry completed Maged Chatman DPM [address], [place], [address], [employer] 08/16/2023 13:06:34 06/29/20 23 Jc Bandage completed GERMAN Harmon [address], [place], [address], [employer] 06/29/2023 19:35:52 04/22/20 21 Shoulder completed Not Available [facility] 06:40:44 03/10/20 18 Laryngoscopy with biopsy completed Not Available [facility] 01/04/2023 06:40:44 03/02/20 16 Knee completed Not Available [facility] 06:40:44 Hernia repair w/mesh completed Not Available [facility] 01/04/2023 06:40:44 section completed Not Available [facility] 01/04/2023 06:40:44 Rotator cuff surgery completed Not Available [facility] 01/04/2023 06:40:44 exploratory laparotomy completed LAZARO Yeung [employer] 08/03/2023 11:31:16 Imaging Results None recorded. Procedure Notes None recorded. Medical Equipment None Reported. Allergies Allergen ID Allergen Name Allergen Category Reaction Reaction Severity Criticality Documentation Date Start Date Code Code System Note Provider Name and Address Organization Details Recorded Time 01419 No known allergy (situatio n) Not available Not available Not available Not available 06/22/2024 90210 6003 SNOMED Maribel Karina, INJECTION MOLDER [address], [address], [place], [address] , [facility] [employer] 4 13:46:02 No known drug allergies Medications [...] mg by injectio n route. 12/12 completed [facility]: [id number] -[phone] Not Available Not Available Not Available amlodipin [...] Not Available mupirocin 2 % topical ointment EKVAN TO BOTH NOSTRILS BID FOR 5 DAYS [...] administ ered by the provider 06/18 completed [facility]: 0409-427 6-17 Not Available Not Available Not Available lidocaine [...] %) injection solution in office 12/12 completed [facility] [address]- Not Available Not Available Not Available [...] completed Not Available Not Available Not Available [facility] COVID-19 Antigen Rapid Home Test kit USE NEEDED 04/03 completed Not Available Not Available Not Available Vitals None Recorded Social History Question Answer Notes LastModified by Organizat ion Details LastModified Time Tobacco Smoking Status Former Smoker 10/2013 [place] [email or web address] 04/18/2023 08:02:31 Do You Wear A Helmet When Biking? Yes [email or web address] Information not available 04/18/2023 What Is Your Level Of Caffeine Consumption? None [id number] Information not available 01/04/2023 How Much Tobacco Do You Chew? None [id number] Information not available 01/04/2023 In The 14 Days Before Symptom Onset, Have You Had Close Contact With A Laboratory-confi rmed COVID-19 While That Case Was Ill? No [email or web address] Information not available 04/18/2023 In The 14 Days Before Symptom Onset, Have You Had Close Contact With A Person Who Is Under Investigation For COVID-19 While That Person Was Ill? No [email or web address] Information not available 04/18/2023 What Type Of Diet Are You Following? VEGETARIAN [id number] Information not available 01/04/2023 Which Illicit Or Recreational Drugs Have You Used? NO [email or web address] Information not available 04/18/2023 Do You Use Insect Repellent Routinely? No Information not available 04/03/2025 Where Do You Live? [facility] Information not available 04/03/2025 Are You Following A Low Salt Diet? No [email or web address] Information not available 04/18/2023 What Was The [...] Yes Information not available 04/18/2023 Do You Have Smoke And Carbon Monoxide Detectors In Your Home? Yes Information not available 04/03/2025 Are There Any Smokers In Your House? No Information not available 04/03/2025 Do You Participate In Social Media? No Information not available 04/18/2023 Do You Use Sunscreen Routinely? No Information not available 04/03/2025 Have You Recently Traveled Abroad? No Information not available 04/03/2025 Do You Have Any Dietary Restrictions? Yes [email or web address] Information not available 04/18/2023 Sex: Unknown Functional Status Question Answer Note LastModified by Organizat ion Details LastModified Time What is your level of alcohol consumption? None [id number] Information not available 01/04/2023 Do you or have you ever used smokeless tobacco? Never used smokeless tobacco [id number] Information not available 01/04/2023 Are you currently employed? 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 Never used electronic cigarettes Information not available 04/18/2023 What is your exercise level? None [id number] 026 Information not available 01/04/2023 Mental Status Question Answer Note LastModified by Organization D etails LastModified Time Do you feel stressed (tense, restless, nervous, or anxious, or unable to sleep at night)? [id number] [email or web address] Information not available 04/18/2023 Family History Relationship Description Onset Age of this Age Resolved Age Notes LastModified by Organization Details LastModified Time Maternal Grandmother Diabetes mellitus [id number] [id number] Not available 01/04/2023 06:40:45 Maternal Grandmother Arthritis [email or web address] Not available 08:02:27 Maternal Grandfather Diabetes mellitus MIGRATION.809 [id number] Not available 01/04/2023 06:40:45 Maternal Grandfather Arthritis [email or web address] Not available 08:02:27 Father Diabetes mellitus MIGRATION.323 [id number] Not available 01/04/2023 06:40:45 Father Arthritis [email or web address] Not availabl e 04/18/2023 08:02:27 Mother Diabetes mellitus MIGRATION.140 [id number] Not available 01/04/2023 06:40:45 Mother Arthritis [email or web address] Not availabl e 04/18/2023 08:02:27 Paternal Grandfather Diabetes mellitus MIGRATION.825 [id number] Not available 01/04/2023 06:40:45 Paternal Grandfather Arthritis [email or web address] Not available 08:02:27 Paternal Grandmother Diabetes mellitus MIGRATION.384 [id number] Not available 01/04/2023 06:40:45 Paternal Grandmother Arthritis [...] BLOOD DISEASES N SCHIZOPHRENIA N SHINGLES N BOWEL PROBLEMS N SHOULDER PAIN N DEPRESSION (INCLUDING POST ) N FAILED BACK SYNDROME N STROKE/TIA N [...] HAVE YOU BEEN HOSPITALIZED OR SEEN IN [facility] ER IN THE PAST YEAR [...] Recorded Time Tdap 12/21/2022 completed Not Available [facility] 12/07/2023 01:34:30 Influenza, split virus, quadrivalent, PF 09/20/2017 completed Not Available [facility] 4 01:34:30 Influenza, split virus, quadrivalent, PF 07/30/2018 completed Not Available [facility] 4 01:34:30 Influenza, split virus, quadrivalent, PF 10/20/2015 completed Not Available [facility] 4 01:34:30 Past Encounters Encounter ID Performer Location Encounter Start Date Encounter Closed Date Diagnosis/Indication Diagnosis SNOMED-CT Code Diagnosis ICD10 Code Diagnosis Note [id number] RAPHAEL Jarrett [address] [address] 05/12/2025 15:43:56 05/12/2025 16:35:38 Cancer cervix screening status 124259191 Z12.4 Patient tolerated well. [id number] RAPHAEL Jarrett [address] [address] 05/21/2025 12:23:43 05/21/2025 12:34:36 Health Concerns Section Related Observation LastModified by Organization Detai ls LastModified Time None Recorded Concern Status LastModified by Organization Details LastModified Time None Recorded Payers Encounter Date Sequence Insurance Name Policy Number Policy Herrera Covered Member ID Herrera Member ID Guarantor Name 05/21/2025 1 [facility] ON OR AFTER 05/06/21 (MEDICAID REPLACEMENT - HMO) Prachi Benton [id number] Prachi L Chetan OBGyn Episode No OBEpisode recorded.
== END 2025-05-22 13:42 | disposition home or self-care (01) ==
PROVIDERS: PCP Nurse Practitioner Family; Visit Provider Nurse Practitioner Family
DX: M54.2 Cervicalgia (principal); R60.9 Edema, unspecified
CPT/HCPCS: 72040

== ENCOUNTER 2025-06-10 12:02 | Outpatient (CLI) | payer OTHER, SELFPAY ==
--- NOTE | ~2025-06-10 | XR_ITS ---
Lumbosacral Spine: AP, oblique, and lateral views Clinical History: Pain COMPARISON: 08/09/2022 Findings: The normal lordotic curve is maintained. Stable posterior fusion from L5 to S1. Stable ente ring anterolisthesis of L5 over S1. Mild to moderate facet arthropathy present in the upper lumbar sp ine. There is mild to moderate degenerative disc change at L1-L2. The sacroiliac joints are normally outlined. Impression: Degenerative changes, as above. Stable spinal fusion and listhesis at L5-S1. Reviewed, dictated and finalized at location M. Impression: Degenerative changes, as above. Stable spinal fusion and listhesis at L5-S1.
--- OUTSIDE RECORDS SUMMARY | 2025-06-10 12:07 | XMS_ITS | Referral Summary ---
Author Organization [facility] Address [address] [place] [address] Care Team Providers Care Radio Installer Automobile Name Role Phone Ashanti Chin MD Primary [...] on file Legal Sex Female 3:07 AM YARD BRAKEMAN Gender Identity Not on file Sexual Orientation Not on file Last Filed Vital Signs Vital Sign Reading Time Taken Comments Blood Pressure 158/98 11/20/2024 1:05 PM YARD BRAKEMAN Pulse 113 11/20/2024 1:05 PM YARD BRAKEMAN Temperature 37.1 C (98.7 F) 11/20/2024 1:05 PM YARD BRAKEMAN Respiratory Rate 18 11/20/2024 1:05 PM YARD BRAKEMAN Oxygen Saturation 95% 11/20/2024 1:05 PM YARD BRAKEMAN Inhaled Oxygen Concentration - - Weight 122.9 kg (271 lb) 11/20/2024 1:05 PM YARD BRAKEMAN Height 180.3 cm (5' 10.98) 11/20/2024 1:[address] Body Mass Index 37.81 11/20/2024 1:05 PM YARD BRAKEMAN Plan of Treatment Not on file Goals [...] as needed Medical Devices Implanted Type Area Internal Controls Consultant Device Identifier Shelf Expiration Date Model / Serial / Lot Rods And Screws Back Insurance [facility] Care Teams Radio Installer Automobile Relationship Specialty Start Date End Date Ashanti Chin MD [address] [place] [address] DR MOREIRA [address] [place] [id number] PCP - General Family Medicine 05/10/22
--- OUTSIDE RECORDS SUMMARY | 2025-06-10 12:07 | XMS_ITS | Clinical Summary ---
Author Organization [facility] [employer] Address [address] [place] [place] [address] Care Team Providers Care Dried Fruit Washer Name Role Phone Ashanti Chin MD Primary Care Provider [phone] Source Comments [facility] [employer],non-owned Affiliates and Associated Physician Practices is amultiple site organization consisting of ambulatory clinics and hospital sitesin [place], [place], [place] and [place]. This disclosure is being madepursuant to the Care Everywhere program and may not contain all information available regarding this patient. Last updated 18.[facility] [employer] Allergies No known active allergies Medications * Be aware that medications may not be up to date on this document. Alwaysverify current medications with the patient. 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 [id number] PCP - General Family Medicine 01/17/22
--- OUTSIDE RECORDS SUMMARY | 2025-06-10 12:07 | XMS_ITS | Clinical Summary ---
Author Organization [facility] Address [address] [place] [address] Care Team Providers Care Business Objects Name Role Phone Ashanti Chin MD Primary [...] 04/12/2022 Active fluticasone propionate (FLONASE) 50 mcg/spray [place], Suspension nasal inhaler 05/24/2022 Activ e gabapentin [...] to complete this topic Insurance Care Teams Business Objects Relationship Specialty Start Date End Date Ashanti Chin MD [address] [place] [address] [place] [address] PCP - General Family Practice 06/01/22
--- OUTSIDE RECORDS SUMMARY | 2025-06-10 12:07 | XMS_ITS | Clinical Summary ---
Author Organization [facility] Address [address] [place] [address] Care Team Providers Care Hair Specialist Name Role Phone Ashanti Chin MD Primary [...] on file Legal Sex Female 3:07 AM BARREL ENDSHAKER ADJUSTER Gender Identity Not on file Sexual Orientation Not on file Obstetrics History Last Filed Vital Signs Vital Sign Reading Time Taken Comments Blood Pressure 158/98 11/20/2024 1:05 PM BARREL ENDSHAKER ADJUSTER Pulse 113 11/20/2024 1:05 PM BARREL ENDSHAKER ADJUSTER Temperature 37.1 C (98.7 F) 11/20/2024 1:05 PM BARREL ENDSHAKER ADJUSTER Respiratory Rate 18 11/20/2024 1:05 PM BARREL ENDSHAKER ADJUSTER Oxygen Saturation 95% 11/20/2024 1:05 PM BARREL ENDSHAKER ADJUSTER Inhaled Oxygen Concentration - - Weight 122.9 kg (271 lb) 11/20/2024 1:05 PM BARREL ENDSHAKER ADJUSTER Height 180.3 cm (5' 10.98) 11/20/2024 1:[address] Body Mass Index 37.81 11/20/2024 1:05 PM BARREL ENDSHAKER ADJUSTER Plan of Treatment Health Maintenance Due Date [...] as needed Medical Devices Implanted Type Area Lighting Specialist Device Identifier Shelf Expiration Date Model / Serial / Lot Rods And Screws Back Insurance [facility] Care Teams Hair Specialist Relationship Specialty Start Date End Date Ashanti Chin MD [address] [place] [address] [address] [address] [place] [id number] PCP - General Family Medicine 05/10/22
--- OUTSIDE RECORDS SUMMARY | 2025-06-10 12:07 | XMS_ITS | Clinical Summary ---
Author Organization [facility] Address [address] [place] [id number] Care Team Providers Care Dope Maintenance Worker Name Role Phone Unavailable Primary Care Provider [...]
[2025-06-10 13:13] LABS: Creatine Kinase 125 U/L (30-135); Magnesium 2.1 mg/dL (1.6-2.3)
[2025-06-10 14:24] LABS: Vitamin B12 489.0 pg/mL (239-931)
[2025-06-17 13:08] LABS: HLA-B27 Negative (.)
== END 2025-06-10 12:03 | disposition home or self-care (01) ==
LOC: ANHLAB 12:05
PROVIDERS: PCP Nurse Practitioner Family; Visit Provider Nurse Practitioner Family
DX: M47.816 Spondylosis without myelopathy or radiculopathy, lumbar region (principal); M43.17 Spondylolisthesis, lumbosacral region; Z98.1 Arthrodesis status
CPT/HCPCS: 36415; 72110; 81374; 82550; 82607; 82746; 83735